=== PATIENT | female | born 1970 | race Caucasian/White ===

== ENCOUNTER 2017-01-05 07:51 | Emergency (ER) | payer OTHER ==
[~2017-01-05] VITALS: Ht 165.1 cm; Wt 136.3 kg
[~2017-01-05 07:51] MED LIST: FENO160T PO; FLUO20CA35 PO; FURO40TA3 PO; GLC/500 PO; GLIP-199 PO; LISI-791 PO; MOME200A INH; POTA-331 PO; SIMV40TA4 PO
[2017-01-05 07:55] VITALS: TEMP 36.8; Ht 165.1 cm; Wt 136.3 kg
[2017-01-05 08:50] LABS: BASO % 0.1 %; BASO ABS # 0.01 K/uL (0-0.2); COMPLETE YES; EOS % 0.8 %; HEMATOCRIT 45.9 % (37-47); IG% 0.4 %; LYMPH % 14.5 %; LYMPH ABS # 1.61 K/uL (1.2-3.4); MEAN CELL VOLUME 83.8 fL (80-100); MEAN CORPUSCULAR HEMOGLOBIN 27.2 pg (25-34); MEAN CORPUSCULAR HGB CONC 32.5 g/dl (32-36); MEAN PLATELET VOLUME 9.6 fL (7.4-10.4); MONO % 6.2 %; PLATELET COUNT 293 K/uL (130-400); RED BLOOD COUNT 5.48 M/uL (4.2-5.4); WHITE BLOOD COUNT 11.07 K/uL (4.8-10.8)
[2017-01-05 08:55] LABS: URINE APPEARANCE CLOUDY (CLEAR); URINE BILIRUBIN NEG (NEG); URINE COLOR YELLOW; URINE EPITHELIAL CELL AUTO >30 /lpf (0-5); URINE NITRITE NEG (NEG); URINE PH 6.5 (4.5-7.5); UROBILINOGEN NEG (NEG); ZZUR CULT IF INDIC CLEAN CATCH YES
[2017-01-05 09:01] LABS: MANUAL MICROSCOPIC REQUIRED? NO; REVIEW REQ? YES
[2017-01-05 09:10] LABS: BUN/CREATININE RATIO 6.7 (10-20); CALCIUM 9.1 mg/dl (8.5-10.1); CREATININE 0.87 mg/dl (0.60-1.20); POTASSIUM 3.7 mmol/L (3.5-5.1)
--- NOTE | 2017-01-05 10:06 | DIAGNOSTIC IMAGING REPORT ---
CHEST 2 VIEWS ROUTINE CLINICAL HISTORY: 46 years-old Female presenting with peripheral edema. TECHNIQUE: PA and lateral views of the chest were obtained. COMPARISON: 02/07/2015. FINDINGS: Cardiomediastinal silhouette normal. Persistent mild peribronchial cuffing. Lungs and pleural spaces otherwise clear. Osseous structures and upper abdomen normal. IMPRESSION: 1. Persistent mild peribronchial cuffing, nonspecific and could be seen in the setting of bronchitis/bronchiolitis or reactive airways disease among other etiologies. No other evidence of acute cardiopulmonary disease. Electronically signed by: Sanchez Smyth M.D. 01/05/2017 10:05 AM Dictated Date/Time: 01/05/2017 10:04 AM
--- NOTE | 2017-01-05 10:20 | EMERGENCY ROOM VISIT NOTE ---
History First contact with patient: 08:19 Chief Complaint: HYPERGLYCEMIA Stated Complaint: HIGH SUGAR LEVELS Nursing Triage Summary: Patient reports she just moved back from [place] states that her glucometer was reading in the 500's at home states she has had a headache and not felt good so she decided to check her sugar at home. Patient reports her meter is older and she has recently just moved back from [place]. Patients BSG here is 116 with repeat of 120. Patient is currently not taking her medications History of Present Illness The patient is a 46 year old female who presents to the Emergency Room with complaints of hyperglycemia. The patient moved to the area and October of this year but only recently got her medical card and is now in search of a PCP. The patient is a known diabetic and states she has been off her medicine for several months. She moved here from [place]. She states she felt a little shaky this morning and therefore ate a few crackers which made her feel better she also took her blood sugar with her old glucometer and her blood sugar was over 500 which is why she came to the emergency room. In triage her blood sugar was only 112. The patient has no other complaints. She does admit to having chronic peripheral edema and COPD. She is a nonsmoker. The patient denies any chest pain or shortness of breath. The patient denies any abdominal pain, nausea or vomiting. The patient currently does not feel dizzy or shaky. Review of Systems 10 system review was performed and was negative unless stated otherwise history of present illness. Past Medical/Surgical History Medical Problems: (1) Bilateral tubal ligation (2) BLADDER TUMOR (3) CHR AIRWAY OBSTRUCT NEC (4) DIAB MILDRED WO COMPL, TYPE II OR UNSPEC TYPE, NOT UNCNTRLD (5) Dyslipidemia (6) EDEMA (7) LUMBAGO (8) OBESITY, NOS (9) SHORTNESS OF BREATH (10) TOBACCO USE DISORDER Family History No pertinent family history Social History Smoking Status: Current Every Day Smoker Alcohol Use: none Drug Use: none Marital Status: single Housing Status: other (this with her son) Occupation Status: unemployed Current/Historical Medications No Active Prescriptions or Reported Meds Physical Exam Vital Signs Date Time Temp Pulse Resp B/P (MAP) Pulse Ox O2 Delivery O2 Flow Rate FiO2 01/05/17 09:38 87 17 148/84 94 Room Air 01/05/17 07:55 36.8 92 20 153/106 96 Room Air Physical Exam GENERAL: 46-year-old obese white female appears in no acute distress. MENTAL Status: Alert and oriented 3. EYES: PERRLA. EOMs intact. NECK: Supple, no lymphadenopathy noted. No carotid bruits noted. LUNGS: Clear auscultation without wheezes rales or rhonchi. CARDIAC: Regular rate and rhythm without murmur. Pulses is full and equal throughout. ABDOMEN: Positive bowel sounds all 4 quadrants. Soft, nontender to palpation without organomegaly or masses. NEURO:Cranial nerves two through 12 intact. Cerebellar function intact with [id number]. Fine motor intact with alternating finger motions. LOWER EXTREMITIES: Patient has generalized swelling of both lower extremities. She has 1+ pitting edema bilaterally. No erythema noted. There is some dry scaling noted consistent with stasis dermatitis. Medical Decision & Procedures ER Provider Diagnostic Interpretation: CHEST 2 VIEWS ROUTINE CLINICAL HISTORY: 46 years-old Female presenting with peripheral edema. TECHNIQUE: PA and lateral views of the chest were obtained. COMPARISON: 02/07/2015. FINDINGS: Cardiomediastinal silhouette normal. Persistent mild peribronchial cuffing. Lungs and pleural spaces otherwise clear. Osseous structures and upper abdomen normal. IMPRESSION: 1. Persistent mild peribronchial cuffing, nonspecific and could be seen in the setting of bronchitis/bronchiolitis or reactive airways disease among other etiologies. No other evidence of acute cardiopulmonary disease. Electronically signed by: Sanchez Smyth M.D. 01/05/2017 10:05 AM Dictated Date/Time: 01/05/2017 10:04 AM Laboratory Results 01/05/17 08:40 Red Blood Count 5.48, Mean Corpuscular Volume 83.8, Mean Corpuscular Hemoglobin 27.2, Mean Corpuscular Hemoglobin Concent 32.5, Mean Platelet Volume 9.6, Neutrophils (%) (Auto) 78.0, Lymphocytes (%) (Auto) 14.5, Monocytes (%) (Auto) 6.2, Eosinophils (%) (Auto) 0.8, Basophils (%) (Auto) 0.1, Neutrophils # (Auto) 8.63, Lymphocytes # (Auto) 1.61, Monocytes # (Auto) 0.69, Eosinophils # (Auto) 0.09, Basophils # (Auto) 0.01 01/05/17 08:40 Test 01/05/17 08:04 01/05/17 08:25 8/4/17 08:40 Bedside Glucose 120 mg/dl (70-90) Urine Color YELLOW Urine Appearance CLOUDY (CLEAR) Urine pH 6.5 (4.5-7.5) Urine Specific Ophiem 1.010 (1.000-1.030) Urine Protein NEG (NEG) Urine Glucose (UA) NEG (NEG) Urine Ketones NEG (NEG) Urine Occult Blood NEG (NEG) Urine Nitrite NEG (NEG) Urine Bilirubin NEG (NEG) Urine Urobilinogen NEG (NEG) Urine Leukocyte Esterase LARGE (NEG) Urine WBC (Auto) >30 /hpf (0-5) Urine RBC (Auto) 0-4 /hpf (0-4) Urine Hyaline Casts (Auto) 1-5 /lpf (0-5) Urine Epithelial Cells (Auto) >30 /lpf (0-5) Urine Bacteria (Auto) 1+ (NEG) White Blood Count 11.07 K/uL (4.8-10.8) Red Blood Count 5.48 M/uL (4.2-5.4) Hemoglobin 14.9 g/dL (12.0-16.0) Hematocrit 45.9 % (37-47) Mean Corpuscular Volume 83.8 fL (80-100) Mean Corpuscular Hemoglobin 27.2 pg (25-34) Mean Corpuscular Hemoglobin Concent 32.5 g/dl (32-36) Platelet Count 293 K/uL (130-400) Mean Platelet Volume 9.6 fL (7.4-10.4) Neutrophils (%) (Auto) 78.0 % Lymphocytes (%) (Auto) 14.5 % Monocytes (%) (Auto) 6.2 % Eosinophils (%) (Auto) 0.8 % Basophils (%) (Auto) 0.1 % Neutrophils # (Auto) 8.63 K/uL (1.4-6.5) Lymphocytes # (Auto) 1.61 K/uL (1.2-3.4) Monocytes # (Auto) 0.69 K/uL (0.11-0.59) Eosinophils # (Auto) 0.09 K/uL (0-0.5) Basophils # (Auto) 0.01 K/uL (0-0.2) RDW Standard Deviation 46.8 fL (36.4-46.3) RDW Coefficient of Variation 15.3 % (11.5-14.5) Immature Granulocyte % (Auto) 0.4 % Immature Granulocyte # (Auto) 0.04 K/uL (0.00-0.02) Anion Gap 6.0 mmol/L (3-11) Est Creatinine Clear Calc Drug Dose 110.8 ml/min Estimated GFR () 91.3 Estimated GFR (Non- 78.8 BUN/Creatinine Ratio 6.7 (10-20) Calcium Level 9.1 mg/dl (8.5-10.1) Total Bilirubin 0.4 mg/dl (0.2-1) Direct Bilirubin 0.1 mg/dl (0-0.2) Aspartate Amino Transf (AST/SGOT) 16 U/L (15-37) Alanine Aminotransferase (ALT/SGPT) 21 U/L (12-78) Alkaline Phosphatase 116 U/L (45-117) Total Protein 7.3 gm/dl (6.4-8.2) Albumin 3.0 gm/dl (3.4-5.0) Lipase 122 U/L (73-393) ED Course The patient was evaluated. The patient's EMR medication list were reviewed. IV access was obtained. CBC differential, renal profile, LFTs and lipase levels were ordered. Labs are reviewed. The patient's glucose was 115. Chest x-ray was ordered and interpreted by the radiologist and myself as above without any acute findings.. I spoke with the interior design instructor who is going to speak with the patient and give her a list of PCPs in her area. I stressed to the patient she needs to get established with a PCP as soon as possible. The patient was discharged home in stable condition. Medical Decision Differential diagnosis include hyperglycemia, hypoglycemia. This patient needs chronic care follow-up [place] Drug Monitoring Program Search Results: patient reviewed within database Medication Reconcilliation Current Medication List: was personally reviewed by me Blood Pressure Screening Patient's blood pressure: Elevated blood pressure Blood pressure disposition: Elevated BP felt to be situational Impression Primary Impression: Type 2 diabetes mellitus Departure Information Dispostion Home / Self-Care Condition GOOD Prescriptions No Active Prescriptions or Reported Meds Referrals No Doctor, Assigned (PCP) Forms HOME CARE DOCUMENTATION FORM, IMPORTANT VISIT INFORMATION, WORK / SCHOOL INSTRUCTIONS Patient Instructions My [facility] [id number] Additional Instructions Set up an appointment with a PCP as soon as possible for chronic care management. Recommend buying a new glucometer. Problem Qualifiers Primary Impression: Type 2 diabetes mellitus Diabetes mellitus complication status: without complication
[2017-01-05 10:30] VITALS: BP 139/86; PULSE 82; O2SAT 94
[2017-03-07] MEDS ORDERED: LPR25 PO (15:18)
[2017-03-07] MEDS ORDERED: ASPEC81 PO (15:18)
[2017-03-07] MEDS ORDERED: NTRSLP4 SL (15:18)
[2017-03-07] MEDS ORDERED: PLV75 PO (15:18)
== END 2017-01-05 10:30 | disposition home or self-care (01) ==
LOC: C.EDB 07:52 → C.EDA 10:30
DX: E11.9 Type 2 diabetes mellitus without complications (principal); J44.9 Chronic obstructive pulmonary disease, unspecified; E78.5 Hyperlipidemia, unspecified; R60.9 Edema, unspecified; E66.9 Obesity, unspecified; F17.200 Nicotine dependence, unspecified, uncomplicated

== ENCOUNTER 2017-03-06 12:08 | Inpatient (IN) | payer OTHER ==
[2017-03-06] VITALS (9 sets, daily range): BP systolic 126–168; BP diastolic 86–109; PULSE 86–103; O2SAT 95; Ht 165.1 cm; Wt 140.9 kg
[~2017-03-06] VITALS: Ht 165.1 cm; Wt 140.9 kg
[2017-03-06] MEDS ORDERED: ASPI81TA28 PO (12:36)
[2017-03-06] MEDS ORDERED: CHN/1 PO (12:38)
[2017-03-06 12:46] LABS: MEAN CELL VOLUME 82.7 fL (80-100); MEAN CORPUSCULAR HGB CONC 32.6 g/dl (32-36); MEAN PLATELET VOLUME 9.4 fL (7.4-10.4); PLATELET COUNT 254 K/uL (130-400); RED BLOOD COUNT 5.56 M/uL (4.2-5.4); WHITE BLOOD COUNT 9.84 K/uL (4.8-10.8)
--- NOTE | 2017-03-06 12:49 | EMERGENCY ROOM VISIT NOTE ---
History Report prepared by Fatimah: Concepcion De La Cruz Under the Supervision of: Dr. Kvng Escalera M.D. First contact with patient: 12:30 Chief Complaint: CARDIAC ASSESSMENT Stated Complaint: + stress test Nursing Triage Summary: Pt was at [facility] for stress test for SOB. ALS reports that [facility] could already see that patient had had an IL in past. They also report patient was not on trreadmill long anf had increased ischemia, denied CP at that time. At peak exercise, Pt had run of Vtach followed by SVT for 2-3 sec. Was given 324 ASA. History of COPD. History of Present Illness The patient is a 46 year old female who presents to the Emergency Room with complaints of an abnormal stress test that was done prior to arrival. Per Dr. Verdugo, the patient was referred to his office for a stress-echocardiogram due to angina. He states that today the patient was found to have findings consistent with inducible ischemia. Dr. Verdugo notes that he gave the patient 324 of aspirin and spoke to Dr. Garrido of Cardiology to send the patient over to the hospital for further evaluation. The patient reports shortness of breath with light amounts of activity. She denies any chest pain. The patient denies any history of a previous IL, PE, or DVT. Source of History: patient Onset: prior to arrival Position: other (global) Quality: other (abnormal stress test) Associated Symptoms: + SOB, No chest pain Review of Systems See HPI for pertinent positives & negatives. A total of 10 systems reviewed and were otherwise negative. Past Medical & Surgical Medical Problems: (1) Bilateral tubal ligation (2) BLADDER TUMOR (3) CHR AIRWAY OBSTRUCT NEC (4) DIAB MILDRED WO COMPL, TYPE II OR UNSPEC TYPE, NOT UNCNTRLD (5) Dyslipidemia (6) EDEMA (7) LUMBAGO (8) OBESITY, NOS (9) SHORTNESS OF BREATH (10) TOBACCO USE DISORDER (11) Unstable angina Family History No pertinent family history Social History Smoking Status: Current Every Day Smoker Alcohol Use: none Drug Use: none Marital Status: single Housing Status: other Occupation Status: unemployed Current/Historical Medications Scheduled Varenicline (Chantix), 1 MG PO DIRECTED Allergies Coded Allergies: No Known Allergies (Verified , 03/06/17) Physical Exam Vital Signs Date Time Temp Pulse Resp B/P (MAP) Pulse Ox O2 Delivery O2 Flow Rate FiO2 03/06/17 13:38 86 22 97 03/06/17 13:09 95 Room Air 03/06/17 13:08 86 26 99 03/06/17 13:04 88 22 127/95 95 Room Air 03/06/17 13:04 127/95 03/06/17 12:38 86 30 03/06/17 12:25 90 03/06/17 12:16 36.9 87 18 145/94 95 Room Air 03/06/17 12:16 95 Room Air Physical Exam GENERAL: Patient is in no acute distress. HEENT: No acute trauma, normocephalic atraumatic, mucous membranes moist, no nasal congestion, no scleral icterus. NECK: No stridor, no adenopathy, no meningismus, trachea is midline. LUNGS: Clear to auscultation bilaterally, no wheeze, no rhonchi, breath sounds equal. HEART: Without murmurs gallops or rubs, regular rate and rhythm. ABDOMEN: Soft, nontender, bowel sounds positive, no hernias, no peritonitis. EXTREMITIES: Significant bilateral pedal edema with chronic skin change, worse on left, no active cellulitis. NEUROLOGIC: Oriented x 3, no acute motor or sensory deficits, no focal weakness. SKIN: No rash, no jaundice, no diaphoresis. Medical Decision & Procedures ER Provider Diagnostic Interpretation: X-ray results as stated below per interpretation by me and the radiologist: CHEST ONE VIEW PORTABLE CLINICAL HISTORY: 46 years-old Female presenting with CHEST PAIN. TECHNIQUE: Portable upright AP view of the chest was obtained. COMPARISON: 01/05/2017. FINDINGS: Image quality is degraded due to underpenetration. Cardiac silhouette remains enlarged. Persistent peribronchial cuffing noted. Lungs and pleural spaces clear. Osseous structures normal. Upper abdomen normal. IMPRESSION: 1. Persistent bronchial wall thickening, which could be seen in the setting of bronchitis or reactive airways disease as well as a consequence of congestion/volume overload. No new focal infiltrate allowing for underpenetration. 2. Mild cardiomegaly. Electronically signed by: Sanchez Smyth M.D. 03/06/2017 1:05 PM Dictated Date/Time: 03/06/2017 1:03 PM Laboratory Results 03/06/17 12:29 03/06/17 12:29 Test 03/06/17 12:29 Red Blood Count 5.56 M/uL (4.2-5.4) Mean Corpuscular Volume 82.7 fL (80-100) Mean Corpuscular Hemoglobin 27.0 pg (25-34) Mean Corpuscular Hemoglobin Concent 32.6 g/dl (32-36) RDW Standard Deviation 52.3 fL (36.4-46.3) RDW Coefficient of Variation 17.5 % (11.5-14.5) Mean Platelet Volume 9.4 fL (7.4-10.4) Anion Gap 9.0 mmol/L (3-11) Est Creatinine Clear Calc Drug Dose 127.7 ml/min Estimated GFR () 105.8 Estimated GFR (Non- 91.3 BUN/Creatinine Ratio 9.5 (10-20) Calcium Level 9.0 mg/dl (8.5-10.1) Total Bilirubin 0.3 mg/dl (0.2-1) Aspartate Amino Transf (AST/SGOT) 13 U/L (15-37) Alanine Aminotransferase (ALT/SGPT) 18 U/L (12-78) Alkaline Phosphatase 127 U/L (45-117) Total Creatine Kinase 42 U/L (26-192) Creatine Kinase MB 0.7 ng/ml (0.5-3.6) Creatine Kinase MB Ratio 1.7 (0-3.0) Troponin I < 0.015 ng/ml (0-0.045) Total Protein 7.5 gm/dl (6.4-8.2) Albumin 2.9 gm/dl (3.4-5.0) Globulin 4.6 gm/dl (2.5-4.0) Albumin/Globulin Ratio 0.6 (0.9-2) Laboratory results reviewed by me. ECG Indication: SOB/dyspnea Rate (beats per minute): 82 Rhythm: normal sinus Findings: no acute ischemic change, no ectopy, other (old septal infarct) ED Course 1232: The patient was evaluated in room A2. A complete history and physical exam was performed. I discussed the treatment plan with her and she verbalized complete understanding and agreement. The patient will be evaluated for further treatment. 1237: I discussed the patients case with Kamaljit Sierra. He will evaluate the patient for further treatment. Medical Decision The patient is a 46 year old female who presents to the ED with complaints of an abnormal stress test. Differential diagnoses considered include Angina, IL, anemia, electrolyte imbalance, renal failure, heart failure. There is no leukocytosis or concerning anemia. No significant electrolyte abnormality, kidney failure or hepatitis. EKG shows a normal sinus rhythm with an old septal infarct, no acute ischemia. Cardiac enzyme testing 1 is not consistent with acute cardiac injury. The patient had received oral aspirin prior to arrival. She did poorly on a stress test earlier today. She presents with findings consistent with inducible cardiac ischemia, admission/observation is warranted. I spoke to the patient and case management. The on-call hospitalist was consulted. Medication Reconcilliation Current Medication List: was personally reviewed by me Consults Time Called: 1237 Consulting Physician: Jhonny Sierra Returned Call: 1237 I discussed the patients case with Kamaljit Sierra. He will evaluate the patient for further treatment. Impression Primary Impression: Precordial chest pain Additional Impression: Angina of effort Scribe Attestation The scribe's documentation has been prepared under my direction and personally reviewed by me in its entirety. I confirm that the note above accurately reflects all work, treatment, procedures, and medical decision making performed by me. Departure Information Dispostion Being Evaluated By Hospitalist Referrals No Doctor, Assigned (PCP) Patient Instructions My [facility] Problem Qualifiers
[2017-03-06] MEDS ORDERED: ACETAMINOPHEN 325 MG TAB PO PRN ×2 (13:00→18:15)
[2017-03-06] MEDS ORDERED: ONDANSETRON INJ 2 MG/ML 2 ML VIAL IV PRN ×2 (13:00→18:15)
[2017-03-06] MEDS ORDERED: NITROGLYCERIN 0.4 MG SL PER TAB CHARGE SL PRN ×2 (13:00→18:15)
--- NOTE | 2017-03-06 13:00 | History and Physical ---
History & Physical Date & Time of Service: Mar 06, 2017 at 13:00 . Chief Complaint: shortness of breath, abnormal stress test . Primary Care Physician: No Doctor, Assigned History of Present Illness Source: patient, clinic records, hospital records 46 YO female followed by Dr. Smyth for Family Medicine. History of suspected ischemic heart disease. She had an abnormal nuclear stress study performed in [place] last year. Cardiac catheterization was recommended, but she declined because she did not have insurance coverage at that time. Also has history of hypertension, diet-controlled DM type 2, dyslipidemia, and other problems noted below. Experiencing chest tightness and dyspnea on exertion for some time. Sometimes experiences paresthesiae of left arm and nausea associated with the chest tightness. Symptoms relieved by rest. Recently only able to ambulate for about 5 minutes before developing symptoms. Referred for treadmill stress echo with Dr. Verdugo. Baseline EKG demonstrated septal Q-waves V1-3. Resting echo demonstrated wall motion abnormalities anteroseptally and apically , consistent with ischemic heart disease. Study was stopped during Edward stage I due to fatigue and dyspnea. 3-beat run of ventricular tachycardia and ST depression noted. Post stress echo demonstrated expansion of previously noted anteroseptal and apical hypokinesis as well as new hypokinesis of the anterior and lateral montes. Had runs of SVT during recovery. Symptoms resolved with rest. ASA 324 mg administered in clinic. Patient referred to ED for further evaluation and management. Pain-free and breathing comfortably at time of my assessment. Pt's risk factors for ischemic heart disease: dyslipidemia, hypertension, smoking . Past Medical/Surgical History Chronic and Resolved Medical Problems: (1) CHR AIRWAY OBSTRUCT NEC Status: Chronic (2) DIAB MILDRED WO COMPL, TYPE II OR UNSPEC TYPE, NOT UNCNTRLD Status: Chronic (3) Dyslipidemia Status: Chronic (4) EDEMA Status: Chronic (5) History of bladder cancer Status: Chronic (6) Hypertension Status: Chronic (7) LUMBAGO Status: Chronic (8) OBESITY, NOS Status: Chronic (9) TOBACCO USE DISORDER Status: Chronic Surgical Problems: (1) Status post tubal ligation Status: Chronic (1) Status post cystoscopy / resection bladder tumor Status: Chronic . Family History Diabetes mellitus GRANDMOTHER Social History Smoking Status: Current Every Day Smoker Alcohol Use: none Drug Use: none Marital Status: single Housing status: lives with family Occupational Status: unemployed Immunizations History of Influenza Vaccine: N/A History of Tetanus Vaccine?: Yes Tetanus Immunization Date: Nov 29, 2012 History of Pneumococcal: No History of Hepatitis B Vaccine: Yes Multi-Drug Resistant Organisms History of MDRO: No Allergies Coded Allergies: No Known Allergies (Verified , 03/06/17) Home Medications Scheduled Atorvastatin (Atorvastatin Calcium), 40 MG PO DAILY Furosemide (Furosemide), 20 MG PO DAILY Varenicline (Chantix), 1 MG PO DIRECTED Scheduled PRN Albuterol Hfa (Ventolin Hfa), 2 PUFFS INH Q4H PRN for Wheezing Review of Systems Constitutional: No fever, No weight loss Eyes: No worsening of vision, No diplopia ENT: No nasal symptoms, No sore throat Respiratory: + cough (occasional), + dyspnea on exertion Cardiovascular: + edema, + problem reported (as noted in HPI) Abdomen: No pain, No nausea, No vomiting, No diarrhea, No GI bleeding Musculoskeletal: + joint pain Neurologic: + problem reported (intermittent headaches) Endocrine: No excessive thirst, No excessive urination Hematologic / Lymphatic: + abnormal bleeding/bruising, No swollen lymph nodes Integumentary: + rash (chronic rash lower extremities) Physical Exam Vital Signs Date Time Temp Pulse Resp B/P (MAP) Pulse Ox O2 Delivery O2 Flow Rate FiO2 03/06/17 12:25 90 03/06/17 12:16 36.9 87 18 145/94 95 Room Air 03/06/17 12:16 95 Room Air General Appearance: WD/WN, no apparent distress Head: normocephalic, atraumatic Eyes: normal inspection, PERRL, EOMI, sclerae normal (conjunctivae pink) ENT: hearing grossly normal, pharynx normal, + pertinent finding (upper dentures; lower dentition poor) Neck: supple, no adenopathy, thyroid normal, no JVD, trachea midline Respiratory/Chest: lungs clear, no respiratory distress, no accessory muscle use Cardiovascular: regular rate, rhythm, no JVD, no murmur, normal peripheral pulses, + gallop/S4, + pertinent finding (3+ pretibial and pedal edema) Abdomen/GI: normal bowel sounds, non tender, soft, no organomegaly (exam limited due to body habitus), no pulsatile mass Extremities/Musculoskelatal: no calf tenderness, normal capillary refill Neurologic/Psych: web content director II-XII nml as tested (PERRL, EOMI, no facial palsy, no dysarthira), no motor/sensory deficits (grossly intact), alert, normal mood/ affect, normal reflexes (patellar reflexes 1/2 bilat, plantar reflexes downgoing bilat), oriented x 3 Skin: warm/dry, + pertinent finding (chronic venous stasis changes lower extremities) Lymphatic: no adenopathy (cervical) Diagnostics Laboratory Results Results Past 24 Hours Test 03/06/17 12:29 03/06/17 12:35 Range/Units White Blood Count 9.84 4.8-10.8 K/uL Red Blood Count 5.56 4.2-5.4 M/uL Hemoglobin 15.0 12.0-16.0 g/dL Hematocrit 46.0 37-47 % Mean Corpuscular Volume 82.7 80-100 fL Mean Corpuscular Hemoglobin 27.0 25-34 pg Mean Corpuscular Hemoglobin Concent 32.6 32-36 g/dl RDW Standard Deviation 52.3 36.4-46.3 fL RDW Coefficient of Variation 17.5 11.5-14.5 % Platelet Count 254 130-400 K/uL Mean Platelet Volume 9.4 7.4-10.4 fL Creatine Kinase MB Ratio 0-3.0 Diagnostic Radiology CHEST ONE VIEW PORTABLE FINDINGS: Image quality is degraded due to underpenetration. Cardiac silhouette remains enlarged. Persistent peribronchial cuffing noted. Lungs and pleural spaces clear. Osseous structures normal. Upper abdomen normal. IMPRESSION: 1. Persistent bronchial wall thickening, which could be seen in the setting of bronchitis or reactive airways disease as well as a consequence of congestion/volume overload. No new focal infiltrate allowing for underpenetration. 2. Mild cardiomegaly. Electronically signed by: Sanchez Smyth M.D. 03/06/2017 1:05 PM . EKG EKG performed at 12:13 reviewed and demonstrated NSR at 82 / minute, possible age-indeterminate septal infarct, minimal ST depression (0.5 mm) leads I, aVF. . Impression Assessment and Plan UNSTABLE ANGINA / ABNORMAL STRESS TEST Multiple risk factors for ischemic heart disease. Progressive chest discomfort and dyspnea on exertion. Treadmill stress echo showed wall motion abnormalities at rest and worsening with exertion as summarized in HPI. Received aspirin in clinic. Cardiology consulted. Cardiac cath is be planned for later today. Further management per Cardiology. HYPERTENSION Cardiovascular meds to be determined after cardiac cath performed. DM TYPE 2 Treated with metformin in the past, now diet-controlled. Random glucose in ED 84. Check Hgb A1C. Follow. DYSLIPIDEMIA Check lipid profile. Continue atorvastatin. HISTORY CROHN'S DISEASE Quiescent. SMOKING Smoking cessation counseling. Hold Chantix and nicotine products due to unstable angina. VTE PROPHYLAXIS To be determined after cardiac cath. RESUSCITATION STATUS Full code. DISPOSITION Admit to Telemetry Unit. Expected discharge to home. Family Medicine follow-up with Dr. Smyth. Cardiology follow-up with [facility]. VTE Prophylaxis VTE Risk Assessment Done? Y/N: Yes Risk Level: Moderate Additional Copies To Ruel Smyth M.D.
--- NOTE | 2017-03-06 13:06 | DIAGNOSTIC IMAGING REPORT ---
CHEST ONE VIEW PORTABLE CLINICAL HISTORY: 46 years-old Female presenting with CHEST PAIN. TECHNIQUE: Portable upright AP view of the chest was obtained. COMPARISON: 01/05/2017. FINDINGS: Image quality is degraded due to underpenetration. Cardiac silhouette remains enlarged. Persistent peribronchial cuffing noted. Lungs and pleural spaces clear. Osseous structures normal. Upper abdomen normal. IMPRESSION: 1. Persistent bronchial wall thickening, which could be seen in the setting of bronchitis or reactive airways disease as well as a consequence of congestion/volume overload. No new focal infiltrate allowing for underpenetration. 2. Mild cardiomegaly. Electronically signed by: Sanchez Smyth M.D. 03/06/2017 1:05 PM Dictated Date/Time: 03/06/2017 1:03 PM
[2017-03-06 13:11] LABS: ALT/SGPT 18 U/L (12-78); BLOOD UREA NITROGEN 7 mg/dl (7-18); BUN/CREATININE RATIO 9.5 (10-20); CARBON DIOXIDE 27 mmol/L (21-32); CHLORIDE 103 mmol/L (98-107); CREATININE 0.77 mg/dl (0.60-1.20); GLUCOSE 84 mg/dl (70-99); POTASSIUM 3.9 mmol/L (3.5-5.1); SODIUM 139 mmol/L (136-145)
[2017-03-06 13:16] LABS: ALB/GLOB RATIO 0.6 (0.9-2); ALKALINE PHOSPHATASE 127 U/L (45-117); AST/SGOT 13 U/L (15-37); CKMB/CK RATIO 1.7 (0-3.0)
[2017-03-06] MEDS: SODIUM CHLORIDE 0.9% 1000ML 1,000 ML IV SCH ×2 (13:41→20:47)
[2017-03-06] MEDS ORDERED: MIDAZOLAM HCL 1 MG/ML 2ML VIAL ONE ×2 (14:06→16:19)
[2017-03-06] MEDS ORDERED: NiCARDipine HCL INJ 2.5 MG/ML 10 ML AMP ONE (14:06)
[2017-03-06] MEDS ORDERED: HEPARIN SOD (PORCINE) 1000 UNIT/ML 10 ML VIAL ONE ×3 (14:06→17:27)
[2017-03-06] MEDS ORDERED: FENTANYL CITRATE INJ 50 MCG/1 ML 2 ML VIAL ONE (14:06)
[2017-03-06] MEDS ORDERED: NITROGLYCERIN/D5W 100MCG/ML 20ML SYR ONE (14:07)
[2017-03-06] MEDS ORDERED: VNTHFA/IN INH (14:16)
[2017-03-06] MEDS ORDERED: LSX20 PO (14:16)
[2017-03-06] MEDS ORDERED: LPT40 PO (14:17)
[2017-03-06] MEDS ORDERED: METOPROLOL TARTRATE 1 MG/ML VIAL ONE (15:12)
--- NOTE | 2017-03-06 16:07 | [facility] Post Operative Brief Note ---
Preliminary Procedure Note Procedure Date Mar 06, 2017. Pre-Procedure Diagnosis Angina, Positive Stress Test AUC Score 8 Post-Procedure Diagnosis Severe CAD Procedure(s) Performed Coronary Angiography, LV Angiography Black Topper Dr. Aniceto Garrido Clinical Academic Allergist(s) Sina Moore Estimated Blood Loss <15 cc Medication(s) Fentanyl (12.5 mcg IV), Heparin (5000u IV), Nitroglycerin (0.4 mg SL), Versed ( 1 mg IV), Lidocaine 1% (local infiltration) Metoprolol 2.5 mg IV Preliminary Findings Codominant coronary anatomy Subtotal long 99% proximal LAD with thin FAM II flow to long diagonal, type II LAD collateral fill of distal vessel from RCA and CX LCx Very large, small M1, large OM2 [address] , codominant PDA Mild irregularities diffusely RCA moderate sized codominant with early PDA supply. 50-60% mid vessel LV hypokinesis of the apex, EF 45% EDP 25-30 Recommendations PCI without planned CABG Specimens None Fluids (cc crystalloids) 80 Anesthesia Start 1454 End 1526 Monitor Nicholas Hernandez RN Procedural Complication(s) None
--- NOTE | 2017-03-06 16:28 | CARDIOLOGY CONSULTATION ---
DATE OF CONSULTATION: 03/06/2017 REFERRING PHYSICIAN: Dr. Akhtar. INDICATIONS: Chest pain, abnormal stress test. HISTORY OF PRESENT ILLNESS: The patient is a 46-year-old female whose history is notable for obesity, suspected obstructive sleep apnea, hyperlipidemia, past history of angina pectoris diagnosed greater than a year ago, at the time previously residing in [place]. The patient notes having undergone a stress nuclear imaging standing at that time and was suggested to undergo diagnostic cardiac catheterization. Most recently she has been seen on returned to [place] to her home with symptoms of exertional dyspnea with only minimal exertion. She was referred and underwent stress echocardiography today with study dramatically abnormal at less than 3 minutes on a standard Edward protocol. The patient stopping secondary to severe dyspnea with notable marked LV dysfunction post stress. There was a rapid heart rate and blood pressure response to exercise. She is referred to the ER and now subsequent for further evaluation. She is currently asymptomatic and notes no sustained chest pain, is dyspneic with only minimal exertion. Carries a history of chronic stasis edema which the patient feels has not changed abruptly, was treated for cellulitis earlier this past year but notes no recent infectious problems. Notes no fevers, chills or cough. Notes no melena, hematochezia, dysuria or hematuria. Notes no rash or arthritic complaint. Denies any history of rheumatic fever, scarlet fever, renal or hepatic disease. Has received IV contrast for studies in the past without complication. REVIEW OF SYSTEMS: Otherwise negative. ALLERGIES: Noted to be none. MEDICATIONS: Prior to hospitalization were aspirin 324 mg given today, Chantix which recently started then held, albuterol inhaler, furosemide 20 mg as needed for peripheral edema in addition to 20 mg daily, atorvastatin 40 mg p.o. daily as a recent start. PAST SURGICAL HISTORY: Notable for prior tubal ligation. FAMILY HISTORY: Not specifically notable for cardiac disease per patient. SOCIAL HISTORY: The patient resides in [place]. She is a 1/2-1 pack per day smoker, uses no significant [id number] medications. PHYSICAL EXAMINATION: VITAL SIGNS: Heart rate is 80, blood pressure is 127/95, O2 saturation 95% on room air. HEAD, EYES, EARS, NOSE, AND THROAT: Normocephalic, atraumatic. Nares without discharge. Throat is notable for upper edentulous palate with denture plate in place. NECK: Thick. There is no distinct jugular venous distention. LUNGS: Reveal mildly diminished breath sounds, but are predominantly clear. CARDIOVASCULAR EXAMINATION: Regular with normal S1, S2. There is no murmur, gallop or rub. PMI is nondisplaced. ABDOMEN: Soft, obese, large panniculus. EXTREMITIES: Without cyanosis or clubbing. There is marked stasis changes of both lower extremities with intact distal pulses at 3/4. NEUROLOGIC: The patient alert, answering questions appropriately. DATA: Stress echocardiography as per HPI. The patient exercised on a Edward protocol for less than 3 minutes before stopping secondary to marked dyspnea. There is a dramatic heart rate response to exercise, achieving heart rate greater of 140 at that level workload. Blood pressure response was hypertensive. Resting echocardiography reflected apical and septal wall motion abnormalities with hypokinesis to akinesis of the second as stress wall segments failed to improve with only sparing of the basilar inferior wall. LABORATORY DATA: Lipid study 02/16/2017 reveal a cholesterol of 258, HDL 34, LDL 187. Laboratory studies performed today demonstrates a white cell count of 9.8, hemoglobin is 15.0, hematocrit 46.0. Sodium is 139, potassium 3.9, chloride is 103, bicarb 27, BUN 7, creatinine 0.8. Initial troponin is less than 0.015. Albumin level is 2.9. Chest x-ray reveals no infiltrate or edema. EKG reveals sinus rhythm with septal Q-waves. 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 The patient is currently pain free and without complaint. Initial cardiac enzymes are negative. There are no acute ST segment changes on EKG with old septal Q-waves. RECOMMENDATIONS: Discussed findings in detail. I agree with plans for diagnostic cardiac catheterization. Patient has been n.p.o. since midnight last night. There are no contraindications to proceeding today, will anticipate proceeding directly to laborer tin can this afternoon with further recommendations pending results of the study. The patient has no contraindications to dye administration or drug-eluting stent at this time. Procedure and risks are distinctly discussed in detail including risks of , myocardial infarction, stroke, bleeding, infection, dye reaction, renal vascular embolic injury, additional risks of coronary intervention including coronary stenting including increased risk of myocardial infarction, urgent bypass surgery also discussed. Consent obtained.
[2017-03-06] MEDS ORDERED: CLOPIDOGREL BISULFATE 300 MG TAB PO ONE (17:50)
--- NOTE | 2017-03-06 18:04 | Procedure Note ---
Post-Mod Sedation Assessment General Date of Moderate Sedation Mar 06, 2017. Vital Signs: Vital Signs Past 12 Hours Date Time Temp Pulse Resp B/P (MAP) Pulse Ox O2 Delivery O2 Flow Rate FiO2 03/06/17 17:59 85 18 136/101 (113) 95 Mask 03/06/17 17:54 85 18 143/96 (112) 94 Mask 03/06/17 17:49 86 16 156/100 (118) 95 Mask 4 03/06/17 13:38 86 22 97 03/06/17 13:09 95 Room Air 03/06/17 13:08 86 26 99 03/06/17 13:04 88 22 127/95 95 Room Air 03/06/17 13:04 127/95 03/06/17 12:38 86 30 03/06/17 12:25 90 03/06/17 12:16 36.9 87 18 145/94 95 Room Air 03/06/17 12:16 95 Room Air Review - Discharge Criteria Vital Signs Stable: Yes Alert/Oriented/Conversant: Yes Returned to Baseline Mental St: Yes Nausea Absent/Minimal: Yes Pain/Discomfort/Absent/Minimal: Yes Normal/Baseline Respirations: Yes Active Bleeding?: No Pt Received D/C Instructions: N/A Prescriptions Given: None Specific Proced. D/C Criteria Distal Pulses Present (Cardiac: Yes Groin site assessed-Card Cath: N/A Voided Prior To Discharge: N/A Discharged Patients Adult Escort/Transportation: Yes
[2017-03-06] MEDS ORDERED: ALBUTEROL HFA 8 GM INHALER INH PRN (18:15)
--- NOTE | 2017-03-06 18:35 | Cardiac Catheterization ---
Procedure Note Procedure Date Mar 06, 2017. Pre-Procedure Diagnosis Positive Stress Test, CAD AUC Score 8 Post-Procedure Diagnosis Severe CAD Procedure(s) Performed Drug Eluting Stent, IVUS Plumbing Manager Issa Retail Service Technician(s) Oscar Estimated Blood Loss 20 Medication(s) Fentanyl, Heparin, Nicardipine, Nitroglycerin, Versed, Lidocaine 1% Metoprolol 2.5 mg IV Summary of Findings Indication: High risk positive stress test Access: 6Fr Right radial artery Catheters: EBU 3.5 guide; switched to JL3.5 guide Findings: For full details of patient's coronary angiography please see cath report dictated by Dr. Garrido. Briefly, patient found to have subtotally occluded ostial LAD. Distal vessel fills vial left to left and right to left collaterals. -- PCI -- Antithrombotic therapy: Heparin, Clopidogrel Procedure: LM cannulated with JL3.5 (unable to seat EBU3.5 due to short asc aorta) Record Maker 50 wire passed across occlusion in to distal LAD Whisper wire placed into circumflex LAD lesion gently dilated with 2.0 and 2.5 balloon. With some difficulty whisper wire eventually placed into 1st diagonal LAD lesion more aggressively dilated with 2.5 balloon. Ostium of 1st diagonal dilated with 2.0 balloon IVUS of LAD revealed severe proximal, mildly calcified plaque. IVUS used for stent sizing. IVUS of 1st diagonal showed severe ostial disease 2.5 x 23 Xience MICAH placed at ostium of 1st diagonal 2.75 x 28 Xience MICAH placed from ostium of LAD across diagonal into mid segment. 1st diagonal whisper wire removed and re-wired through stent struts Stent struts, 1st diagonal ostium dilated with 2.5 compliant balloon LAD stent post-dilated with 3.0 NC balloon. IC vasodilators administered for spasm Post procedure FAM 3 flow, stents well expanded with minimal residual stenosis and no apparent cardiac complications. Arterial Closure: TR Band Summary: 1. Successful PCI of subtotally occluded ostial LAD and bifurcation of 1st diagonal with 2 drug-eluting stents (LAD 2.75 x 28, 1st Diagonal 2.5 x 23 Xience ) Recommendations: To PCU for continued monitoring Loaded with Clopidogrel 600 mg in lab analyst Continue dual-antiplatelet therapy for 1 year, possibly indefinitely. Elevated LVEDP (33) -- will give 40 IV lasix x 1 tonight High intensity statin, beta-juan and ASCVD risk factor modification per Dr. Garrido Consult cardiac Rehab Hemodynamics Rest Ao: 145/94/117 Final Ao: 137/79/105 LV: 139/33 Recommendations PCI without planned CABG Specimens None Radiation Exposure (mGy) 70097 (patient counseled on signs and symptoms of radiation injury) Contrast (mls) 249 Fluids (cc crystalloids) 466 Drains None Anesthesia Moderate Procedural Complication(s) None Disposition PCU ACC Data Cardiac Status Clinical evaluation leading to the procedure CAD Presntation: Positive Stress Test Diagnostic Physician's Name: Aniceto Garrido M.D. Status: Urgent Closure Device Percutaneous Entry Location: Radial Closure Device: Radial Band Recommendations: PCI without planned CABG Lesion Segment Name: Ostial LAD Culprit Artery: Yes Stenosis Prior to Rx (%): 99 Chronic Total Occlusion: Yes IVUS: No FFR: No Pre-Procedure FAM Flow: 1 Previously Treated Lesion: No Lesion Complexity: High/C Lesion Length (mm): 25 Thrombus Present: No Bifurcation Lesion: Yes Guidewire Across Lesion: Yes Guidewire: Stenosis Post-Procedure (%): 0 Post-Procedure FAM Flow: 3 Device(s) Deployed: Yes Intraprocedure Events Significant Dissection: No Perforation: No
[2017-03-06 19:30] LABS: PARTIAL THROMBOPLASTIN RATIO 4.5; PROTHROMBIN TIME (PATIENT) 10.7 SECONDS (9.0-12.0)
[2017-03-06] MEDS ORDERED: FUROSEMIDE INJ 40 MG in SYRINGE 0 ML IV ONE (19:30)
[2017-03-06] MEDS: METOPROLOL TARTRATE 25 MG TAB PO SCH (21:36)
--- NOTE | 2017-03-06 23:13 | CARDIAC CATH REPORT ---
PROCEDURE: Left heart catheterization, coronary and LV angiography. INDICATIONS: Markedly positive stress testing, chronic angina pectoris. HISTORY OF PRESENT ILLNESS: The patient is a 46-year-old female with cardiac risk factors of hypertension, hyperlipidemia, a past history of abnormal stress testing, approximately 1 year prior, of chronic angina. The patient most recently has been experiencing symptoms of class 3-4 exertional dyspnea and was referred for stress echocardiography today. Studies demonstrated resting hypokinesis in the anterior apex with markedly abnormal EKG, blood pressure, heart rate and echocardiographic response to stress testing at less than 3 minutes, the patient experiencing marked dyspnea, extensive wall motion abnormalities in the anterolateral apex. Symptoms resolved without intervention. Given the dramatically abnormal stress testing and exertional symptoms consistent with angina, she is referred for diagnostic cardiac catheterization. ACCESS: Right radial artery. CATHETERS: A 6-Bahraini long glide sheath, a 5-Bahraini brachial 3.5, a 5-Bahraini straight pigtail catheter. CONTRAST: Nonionic x114 mL Visipaque. IV SALINE: 80 mL normal saline. SEDATION: Start time was 1454, end time 1526. Monitor person Sruthi Hernandez RN. MEDICATIONS: Versed 1 mg IV, fentanyl 12.5 mcg IV. CARDIAC MEDICATIONS: Local infiltration of access site was performed using 1% lidocaine. After arterial sheath was inserted, patient received intra-arterial injection of 300 mcg of nicardipine. After central access was obtained, the patient received 5000 units IV heparin. During the case, 2.5 mg IV metoprolol was given for heart rate and blood pressure control. Following LV angiography, additional nitroglycerin 0.4 mg sublingually was given to reduce LV end-diastolic pressures. COMPLICATIONS: None. RESULTS: CORONARY ANGIOGRAPHY: LEFT MAIN: The left main is long and bifurcates to give rise to left anterior descending and left circumflex. There are minimal irregularities in the left main without obstruction. LEFT ANTERIOR DESCENDING: Left anterior descending is type 2 in distribution, gives rise to a long bifurcating diagonal shortly after its origin and a small third diagonal branch almost immediately beyond. The LAD was noted to have a subtotal 99% ostial stenosis at the distal vessel, being thin and thready in appearance with class 2 flow and collateral filling the distal vessel from the distal right coronary artery and the left circumflex. LEFT CIRCUMFLEX: The left circumflex is very large and nearly co-dominant in distribution. It gives rise to a small first marginal, a large obtuse marginal, two posterolateral branches and a posterior descending artery with the posterior descending artery having some co-distribution from the distal right coronary artery. Within the left circumflex, there are mild luminal irregularities throughout a very large caliber vessel. RIGHT CORONARY ARTERY: The right coronary is moderate in caliber, co-dominant in distribution. It gives rise to a sinoatrial branch shortly after its origin, two right ventricular branches and then terminates as a partial posterior descending artery distribution vessel getting the proximal portion of the area of distribution. There is no AV groove portion. Within the right coronary artery, there are diffuse luminal irregularities with 50%-60% mid-vessel stenosis. LEFT VENTRICULAR ANGIOGRAPHY: The left ventricle was nondilated. There was mild diffuse hypokinesis with focal hypokinesis of the mid septum and apex. Ejection fraction 45%. HEMODYNAMICS: Initial aortic root pressure was 141/86, mean of 113. LV pressure was 139/26 with an LVEDP of 30. FINAL IMPRESSIONS: 1. Co-dominant coronary anatomy with a very large left circumflex. 2. Severe single vessel coronary disease with a subtotal long 99% stenosis at the ostial and proximal left anterior descending with a thin distal distribution vessel with FAM 2 flow and collateral competition, demonstrating a long type 2 LAD and bifurcating LAD diagonal. 3. Moderate narrowing of the mid portion of a co-dominant right coronary artery, 50%-60%. 4. Hypokinesis of the anterior septum and apex. EF 45%. 5. Elevated left end-diastolic pressures. RECOMMENDATIONS: After discussion, the patient will be referred for an attempt at coronary intervention of the left anterior descending for optimized distal flow, given contractility noted on LV angiogram. Following the procedure optimal medical therapy will need to be initiated, including MICAH inhibitor, beta-juan and continued statins and aspirin. Further recommendations pending the results of intervention.
[2017-03-07 00:37] VITALS: BP 100/67; PULSE 72; TEMP 36.9; O2SAT 94
[2017-03-07 04:28] VITALS: BP 127/83; PULSE 73; TEMP 37; O2SAT 96
[2017-03-07 06:05] LABS: BASO % 0.2 %; BASO ABS # 0.02 K/uL (0-0.2); COMPLETE YES; EOS % 1.2 %; HEMATOCRIT 45.8 % (37-47); IG% 0.4 %; LYMPH % 22.4 %; LYMPH ABS # 2.24 K/uL (1.2-3.4); MEAN CELL VOLUME 81.3 fL (80-100); MEAN CORPUSCULAR HEMOGLOBIN 27.5 pg (25-34); MEAN CORPUSCULAR HGB CONC 33.8 g/dl (32-36); MEAN PLATELET VOLUME 9.6 fL (7.4-10.4); MONO % 8.2 %; NEUT % 67.6 %; PLATELET COUNT 251 K/uL (130-400); RED BLOOD COUNT 5.63 M/uL (4.2-5.4)
[2017-03-07 06:54] LABS: BUN/CREATININE RATIO 15.6 (10-20); CALCIUM 8.9 mg/dl (8.5-10.1); CREATININE 0.81 mg/dl (0.60-1.20); POTASSIUM 4.3 mmol/L (3.5-5.1)
[2017-03-07 06:57] LABS: CHOLESTEROL/HDL RATIO 6.2
[2017-03-07 07:17] VITALS: BP 111/69; PULSE 71; TEMP 36.6; O2SAT 94
[2017-03-07] MEDS: METOPROLOL TARTRATE 25 MG TAB PO SCH (08:49)
[2017-03-07] MEDS ORDERED: CLOPIDOGREL BISULFATE 75 MG TAB PO SCH (09:00)
[2017-03-07] MEDS ORDERED: ASPIRIN 81 MG ECTAB PO SCH (09:00)
[2017-03-07] MEDS ORDERED: ENOXAPARIN 40 MG/0.4 ML SYR SQ SCH (09:00)
[2017-03-07] MEDS ORDERED: ATORVASTATIN 40 MG TAB PO SCH (09:00)
[2017-03-07 11:22] VITALS: BP 112/72; PULSE 73; TEMP 36.4; O2SAT 95
--- NOTE | 2017-03-07 13:23 | CARDIOLOGY PROGRESS NOTE ---
DATE: 03/07/2017 DATE: 03/07/2017 The patient seen and examined. Chart, medications, telemetry reviewed. SUBJECTIVE: The patient feels improved this morning. Notes no chest pains or worsening shortness of breath. Was ambulatory in room. Notes no bleeding difficulties at access sites. Tolerating current changes in medications. OBJECTIVE: VITAL SIGNS: Heart rate 73, blood pressure is 112/72. Telemetry reveals no arrhythmias. I's and O's reflect approximately 2 liter diuresis overnight. NECK: Thick. There is no jugular venous distention. LUNGS: Clear to auscultation. CARDIOVASCULAR: Regular. There is no S3 gallop. ABDOMEN: Soft, obese, nontender. EXTREMITIES: Without cyanosis or clubbing. There are chronic stasis changes in lower extremities. LABORATORY DATA: White cell count is 10.0, hemoglobin is 15.5, hematocrit is 45.8, sodium is 137, potassium is 4.3, chloride is 103, bicarb 27, BUN is 13, creatinine 0.8. Hemoglobin A1c 6.4. Cholesterol was 266, LDL 187, HDL 43. IMPRESSION: A 46-year-old female presented with crescendo angina manifesting as severe exertional dyspnea. Cardiac catheterization demonstrating severe LAD diagonal disease with subtotally occluded ostial left anterior descending receiving drug-eluting stents to the left anterior descending and diagonal now clinically stable. RECOMMENDATIONS: The patient to ambulate, if stable may be discharged today. Would discharge on current medical regimen which includes aspirin and clopidogrel uninterrupted for 1 year's time, high dose statin with atorvastatin 80 mg per day, metoprolol beta juan at 25 mg q. 12 hours and prior dosing of furosemide at 20 mg per day. Consideration may be made for the addition of MICAH inhibitor post-hospital discharge. Cardiac rehab should be consulted, patient closer to [facility]. Arrangements will be made for outpatient followup in the next 3-4 weeks' time through [facility]. Tobacco cessation strongly emphasized. The patient likely will warrant outpatient sleep management and testing as well with strong suspicion from both patient and positions part of obstructive sleep apnea. Primary care physician Dr. Smyth . JASON
--- NOTE | 2017-03-07 13:39 | Progress Note ---
Internal Med Progress Note Date of Service: Mar 07, 2017. Provider Documentation: SUBJECTIVE: The patient was seen and examined Admitted with Abnormal Stress test S/P Cardiac Cath and 2 stents in LAD Denies any pain OBJECTIVE: Vital Signs-as noted below Exam: General-no distress at rest Eyes-normal ENT-normal Neck-supple Lungs-Clear to auscultate bilaterally Heart-Regular,no murmur Abdomen-Benign,no jose,bowel sound present Extremities-Trace edema bilaterally Neuro-AAOx3 Lab data as noted below. ASSESSMENT & PLAN: UNSTABLE ANGINA / ABNORMAL STRESS TEST Multiple risk factors for ischemic heart disease. Progressive chest discomfort and dyspnea on exertion. Treadmill stress echo showed wall motion abnormalities at rest and worsening with exertion as summarized in HPI. Received aspirin in clinic. Appreciate cardiology input S/P Cardiac Cath 03/06/17 -MICAH in LAD and Diagonal Aspirin and Plavix for at least 1 year BB,Statin and ACEI down the line Cardiac rehab and smoke cessation HYPERTENSION Cardiovascular meds to be determined after cardiac cath performed. DM TYPE 2 Treated with metformin in the past, now diet-controlled. Random glucose in ED 84. Check Hgb A1C-6.4. DYSLIPIDEMIA Check lipid profile. Continue atorvastatin. HISTORY CROHN'S DISEASE Quiescent. SMOKING Smoking cessation counseling. Hold Chantix and nicotine products due to unstable angina. VTE PROPHYLAXIS To be determined after cardiac cath. RESUSCITATION STATUS Full code. DISPOSITION Admit to Telemetry Unit. Expected discharge to home. Family Medicine follow-up with Dr. Smyth. Cardiology follow-up with [facility]. Vital Signs: Date Time Temp Pulse Resp B/P (MAP) Pulse Ox O2 Delivery O2 Flow Rate FiO2 03/07/17 12:00 Room Air 03/07/17 11:22 36.4 73 18 112/72 (85) 95 Room Air 03/07/17 08:00 Room Air 03/07/17 07:17 36.6 71 18 111/69 (83) 94 Room Air 03/07/17 04:28 37.0 73 19 127/83 (98) 96 Room Air 03/07/17 04:00 Room Air 03/07/17 00:37 36.9 72 20 100/67 (78) 94 Room Air 03/07/17 00:01 Room Air 03/06/17 22:00 87 126/91 (103) 03/06/17 21:30 93 150/94 (112) 03/06/17 21:00 97 156/91 (112) 03/06/17 20:45 103 152/109 (123) 03/06/17 20:30 91 159/94 (115) 03/06/17 20:15 93 152/86 (108) 03/06/17 20:00 Room Air 03/06/17 19:00 88 166/98 (120) 03/06/17 18:31 86 18 168/108 (128) 95 Room Air 03/06/17 18:31 95 Room Air 03/06/17 18:04 83 18 134/86 (102) 95 Mask 03/06/17 17:59 85 18 136/101 (113) 95 Mask 03/06/17 17:54 85 18 143/96 (112) 94 Mask 03/06/17 17:49 86 16 156/100 (118) 95 Mask 4 03/06/17 13:38 86 22 97 Lab Results: Results Past 24 Hours Test 03/06/17 18:47 03/07/17 05:48 Range/Units Prothrombin Time 10.7 9.0-12.0 SECONDS Prothromb Time International Ratio 1.0 0.9-1.1 Activated Partial Thromboplast Time 118.2 21.0-31.0 SECONDS Partial Thromboplastin Ratio 4.5 White Blood Count 10.00 4.8-10.8 K/uL Red Blood Count 5.63 4.2-5.4 M/uL Hemoglobin 15.5 12.0-16.0 g/dL Hematocrit 45.8 37-47 % Mean Corpuscular Volume 81.3 80-100 fL Mean Corpuscular Hemoglobin 27.5 25-34 pg Mean Corpuscular Hemoglobin Concent 33.8 32-36 g/dl Platelet Count 251 130-400 K/uL Mean Platelet Volume 9.6 7.4-10.4 fL Neutrophils (%) (Auto) 67.6 % Lymphocytes (%) (Auto) 22.4 % Monocytes (%) (Auto) 8.2 % Eosinophils (%) (Auto) 1.2 % Basophils (%) (Auto) 0.2 % Neutrophils # (Auto) 6.76 1.4-6.5 K/uL Lymphocytes # (Auto) 2.24 1.2-3.4 K/uL Monocytes # (Auto) 0.82 0.11-0.59 K/uL Eosinophils # (Auto) 0.12 0-0.5 K/uL Basophils # (Auto) 0.02 0-0.2 K/uL RDW Standard Deviation 52.0 36.4-46.3 fL RDW Coefficient of Variation 17.4 11.5-14.5 % Immature Granulocyte % (Auto) 0.4 % Immature Granulocyte # (Auto) 0.04 0.00-0.02 K/uL Sodium Level 137 136-145 mmol/L Potassium Level 4.3 3.5-5.1 mmol/L Chloride Level 103 98-107 mmol/L Carbon Dioxide Level 27 21-32 mmol/L Anion Gap 7.0 3-11 mmol/L Blood Urea Nitrogen 13 7-18 mg/dl Creatinine 0.81 0.60-1.20 mg/dl Est Creatinine Clear Calc Drug Dose 121.4 ml/min Estimated GFR () 99.5 Estimated GFR (Non- 85.9 BUN/Creatinine Ratio 15.6 10-20 Random Glucose 102 70-99 mg/dl Estimated Average Glucose 137 mg/dl Hemoglobin A1c 6.4 4.5-5.6 % Calcium Level 8.9 8.5-10.1 mg/dl Triglycerides Level 179 0-150 mg/dl Cholesterol Level 266 0-200 mg/dl HDL Cholesterol 43 mg/dl LDL Cholesterol, Calculated 187 mg/dl VLDL Cholesterol, Calculated 36 mg/dl Cholesterol/HDL Ratio 6.2
[2017-03-07 15:16] VITALS: BP 118/66; PULSE 78; TEMP 36.4; O2SAT 95
[2017-03-07] MEDS ORDERED: LPR25 PO (15:18)
[2017-03-07] MEDS ORDERED: NTRSLP4 SL (15:18)
[2017-03-07] MEDS ORDERED: ASPEC81 PO (15:18)
[2017-03-07] MEDS ORDERED: PLV75 PO (15:18)
--- NOTE | 2017-03-07 15:24 | Discharge Instructions ---
Discharge Instructions Date of Service Mar 07, 2017. Admission Reason for Admission: Unstable Angina Discharge Discharge Diagnosis / Problem: CAD ,s/p Cardiac Cath with 2 MICAH in LAD and Diagonal Discharge Goals Goal(s): Prevent Disease Progression Activity Recommendations Activity Limitations: resume your previous activity (Take it easy for a fea days) . Instructions / Follow-Up Instructions / Follow-Up Dr Ha on 03/12/17 at 11:05 AM ( dr Smyth is not available).Cardiology will call with appointment.Will need OP Sleep study Current Hospital Diet Patient's current hospital diet: AHA Diet (Heart Healthy) Discharge Diet Recommended Diet: AHA Diet (Heart Healthy) Pending Studies Studies pending at discharge: no Laboratory Results Hemoglobin A1c Test 03/07/17 05:48 Range/Units Estimated Average Glucose 137 mg/dl Hemoglobin A1c 6.4 H 4.5-5.6 % Lipid Panel Test 03/07/17 05:48 Range/Units Triglycerides Level 179 H 0-150 mg/dl Cholesterol Level 266 H 0-200 mg/dl HDL Cholesterol 43 mg/dl Cholesterol/HDL Ratio 6.2 LDL Cholesterol, Calculated 187 mg/dl Medical Emergencies . Who to Call and When: Medical Emergencies: If at any time you feel your situation is an emergency, please call 911 immediately. . Non-Emergent Contact Non-Emergency issues call your: Primary Care Provider . Past History Medical & Surgical History: (1) TOBACCO USE DISORDER (2) CHR AIRWAY OBSTRUCT NEC (3) Unstable angina (4) Hypertension (5) History of bladder cancer (6) OBESITY, NOS (7) Status post tubal ligation . "Provider Documentation" section prepared by Vianey Moore. . VTE Core Measure Inpt VTE Proph given/why not?: Enoxaparin (Lovenox)SQ
[2017-03-07 15:28] VITALS: BP 118/66; PULSE 78; TEMP 36.4; O2SAT 95
--- NOTE | 2017-03-08 07:34 | Discharge Summary ---
Discharge Summary Date of Service Mar 08, 2017. Discharge Summary Admission Date: Mar 06, 2017 at 12:59 Discharge Date: Mar 07, 2017 Discharge Disposition: Home Principal Diagnosis: CAD ,s/p Cardiac Cath with 2 MICAH in LAD and Diagonal Secondary Diagnoses/Problems: Please see H&P and Hospital progress note Procedures: Cardiac Cath Consultations: Cardiology Medication Reconciliation New Medications: Aspirin (Aspirin EC Low Dose) 81 Mg Ectab 81 MG PO QAM for 30 Days, #30 Clopidogrel Bisulfate (Clopidogrel) 75 Mg Tab 75 MG PO QAM for 30 Days, #30 TAB Metoprolol Tartrate (Lopressor) 25 Mg Tab 25 MG PO Q12 for 30 Days, #60 TAB Nitroglycerin (Nitrostat) 0.4 Mg/1 Tab Subl 0.4 MG SL UD PRN for Chest Pain for 30 Days, #25 Continued Medications: Albuterol Hfa (Ventolin Hfa) 200 Puffs/68427 Mcg Aers 2 PUFFS INH Q4H PRN for Wheezing, INHALER Atorvastatin (Atorvastatin Calcium) 40 Mg Tab 80 MG PO DAILY, TAB Furosemide (Furosemide) 20 Mg Tab 20 MG PO DAILY Varenicline (Chantix) 1 Mg Tab 1 MG PO DIRECTED, TAB Admission Information HPI (per Admitting provider): 46 YO female followed by Dr. Smyth for Family Medicine. History of suspected ischemic heart disease. She had an abnormal nuclear stress study performed in [place] last year. Cardiac catheterization was recommended, but she declined because she did not have insurance coverage at that time. Also has history of hypertension, diet-controlled DM type 2, dyslipidemia, and other problems noted below. Experiencing chest tightness and dyspnea on exertion for some time. Sometimes experiences paresthesiae of left arm and nausea associated with the chest tightness. Symptoms relieved by rest. Recently only able to ambulate for about 5 minutes before developing symptoms. Referred for treadmill stress echo with Dr. Verdugo. Baseline EKG demonstrated septal Q-waves V1-3. Resting echo demonstrated wall motion abnormalities anteroseptally and apically , consistent with ischemic heart disease. Study was stopped during Edward stage I due to fatigue and dyspnea. 3-beat run of ventricular tachycardia and ST depression noted. Post stress echo demonstrated expansion of previously noted anteroseptal and apical hypokinesis as well as new hypokinesis of the anterior and lateral montes. Had runs of SVT during recovery. Symptoms resolved with rest. ASA 324 mg administered in clinic. Patient referred to ED for further evaluation and management. Pain-free and breathing comfortably at time of my assessment. Pt's risk factors for ischemic heart disease: dyslipidemia, hypertension, smoking Past Medical/Surgical History Chronic and Resolved Medical Problems: (1) CHR AIRWAY OBSTRUCT NEC Status: Chronic (2) DIAB MILDRED WO COMPL, TYPE II OR UNSPEC TYPE, NOT UNCNTRLD Status: Chronic (3) Dyslipidemia Status: Chronic (4) EDEMA Status: Chronic (5) History of bladder cancer Status: Chronic (6) Hypertension Status: Chronic (7) LUMBAGO Status: Chronic (8) OBESITY, NOS Status: Chronic (9) TOBACCO USE DISORDER Status: Chronic Surgical Problems: (1) Status post tubal ligation Status: Chronic (1) Status post cystoscopy / resection bladder tumor Status: Chronic . Family History Diabetes mellitus GRANDMOTHER Social History Smoking Status: Current Every Day Smoker Alcohol Use: none Drug Use: none Marital Status: single Housing status: lives with family Occupational Status: unemployed Immunizations History of Influenza Vaccine: N/A History of Tetanus Vaccine?: Yes Tetanus Immunization Date: Nov 29, 2012 History of Pneumococcal: No History of Hepatitis B Vaccine: Yes Multi-Drug Resistant Organisms History of MDRO: No Allergies Coded Allergies: No Known Allergies (Verified , 03/06/17) Home Medications Scheduled Atorvastatin (Atorvastatin Calcium), 40 MG PO DAILY Furosemide (Furosemide), 20 MG PO DAILY Varenicline (Chantix), 1 MG PO DIRECTED Scheduled PRN Albuterol Hfa (Ventolin Hfa), 2 PUFFS INH Q4H PRN for Wheezing Review of Systems Constitutional: No fever, No weight loss Eyes: No worsening of vision, No diplopia ENT: No nasal symptoms, No sore throat Respiratory: + cough (occasional), + dyspnea on exertion Cardiovascular: + edema, + problem reported (as noted in HPI) Abdomen: No pain, No nausea, No vomiting, No diarrhea, No GI bleeding Musculoskeletal: + joint pain Neurologic: + problem reported (intermittent headaches) Endocrine: No excessive thirst, No excessive urination Hematologic / Lymphatic: + abnormal bleeding/bruising, No swollen lymph nodes Integumentary: + rash (chronic rash lower extremities) Physical Exam Vital Signs Date Time Temp Pulse Resp B/P (MAP) Pulse Ox O2 Delivery O2 Flow Rate FiO2 03/06/17 12:25 90 03/06/17 12:16 36.9 87 18 145/94 95 Room Air 03/06/17 12:16 95 Room Air General Appearance: WD/WN, no apparent distress Head: normocephalic, atraumatic Eyes: normal inspection, PERRL, EOMI, sclerae normal (conjunctivae pink) ENT: hearing grossly normal, pharynx normal, + pertinent finding (upper dentures; lower dentition poor) Neck: supple, no adenopathy, thyroid normal, no JVD, trachea midline Respiratory/Chest: lungs clear, no respiratory distress, no accessory muscle use Cardiovascular: regular rate, rhythm, no JVD, no murmur, normal peripheral pulses, + gallop/S4, + pertinent finding (3+ pretibial and pedal edema) Abdomen/GI: normal bowel sounds, non tender, soft, no organomegaly (exam limited due to body habitus), no pulsatile mass Extremities/Musculoskelatal: no calf tenderness, normal capillary refill Neurologic/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: 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 as tested (PERRL, EOMI, no facial palsy, no dysarthira), no motor/sensory deficits (grossly intact), alert, normal mood/ affect, normal reflexes (patellar reflexes 1/2 bilat, plantar reflexes downgoing bilat), oriented x 3 Skin: warm/dry, + pertinent finding (chronic venous stasis changes lower extremities) Lymphatic: no adenopathy (cervical) Diagnostics Laboratory Results Results Past 24 Hours Test 03/06/17 12:29 03/06/17 12:35 Range/Units White Blood Count 9.84 4.8-10.8 K/uL Red Blood Count 5.56 4.2-5.4 M/uL Hemoglobin 15.0 12.0-16.0 g/dL Hematocrit 46.0 37-47 % Mean Corpuscular Volume 82.7 80-100 fL Mean Corpuscular Hemoglobin 27.0 25-34 pg Mean Corpuscular Hemoglobin Concent 32.6 32-36 g/dl RDW Standard Deviation 52.3 36.4-46.3 fL RDW Coefficient of Variation 17.5 11.5-14.5 % Platelet Count 254 130-400 K/uL Mean Platelet Volume 9.4 7.4-10.4 fL Creatine Kinase MB Ratio 0-3.0 Diagnostic Radiology CHEST ONE VIEW PORTABLE FINDINGS: Image quality is degraded due to underpenetration. Cardiac silhouette remains enlarged. Persistent peribronchial cuffing noted. Lungs and pleural spaces clear. Osseous structures normal. Upper abdomen normal. IMPRESSION: 1. Persistent bronchial wall thickening, which could be seen in the setting of bronchitis or reactive airways disease as well as a consequence of congestion/volume overload. No new focal infiltrate allowing for underpenetration. 2. Mild cardiomegaly. Electronically signed by: Sanchez Smyth M.D. 03/06/2017 1:05 PM . EKG EKG performed at 12:13 reviewed and demonstrated NSR at 82 / minute, possible age-indeterminate septal infarct, minimal ST depression (0.5 mm) leads I, aVF. . Impression Assessment and Plan UNSTABLE ANGINA / ABNORMAL STRESS TEST Multiple risk factors for ischemic heart disease. Progressive chest discomfort and dyspnea on exertion. Treadmill stress echo showed wall motion abnormalities at rest and worsening with exertion as summarized in HPI. Received aspirin in clinic. Cardiology consulted. Cardiac cath is be planned for later today. Further management per Cardiology. HYPERTENSION Cardiovascular meds to be determined after cardiac cath performed. DM TYPE 2 Treated with metformin in the past, now diet-controlled. Random glucose in ED 84. Check Hgb A1C. Follow. DYSLIPIDEMIA Check lipid profile. Continue atorvastatin. HISTORY CROHN'S DISEASE Quiescent. SMOKING Smoking cessation counseling. Hold Chantix and nicotine products due to unstable angina. VTE PROPHYLAXIS To be determined after cardiac cath. RESUSCITATION STATUS Full code. DISPOSITION Admit to Telemetry Unit. Expected discharge to home. Family Medicine follow-up with Dr. Smyth. Cardiology follow-up with [facility]. VTE Prophylaxis VTE Risk Assessment Done? Y/N: Yes Risk Level: Moderate Additional Copies To Ruel Smyth M.D. <Electronically signed by Rober Akhtar M.D.> Signed: 03/06/17 1422 . Physical Exam (per Admitting): General Appearance: WD/WN, no apparent distress Head: normocephalic, atraumatic Eyes: normal inspection, PERRL, EOMI, sclerae normal (conjunctivae pink) ENT: hearing grossly normal, pharynx normal, + pertinent finding (upper dentures; lower dentition poor) Neck: supple, no adenopathy, thyroid normal, no JVD, trachea midline Respiratory/Chest: lungs clear, no respiratory distress, no accessory muscle use Cardiovascular: regular rate, rhythm, no JVD, no murmur, normal peripheral pulses, + gallop/S4, + pertinent finding (3+ pretibial and pedal edema) Abdomen/GI: normal bowel sounds, non tender, soft, no organomegaly (exam limited due to body habitus), no pulsatile mass Extremities/Musculoskelatal: no calf tenderness, normal capillary refill Neurologic/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 Progressive chest discomfort and dyspnea on exertion. Treadmill stress echo showed wall motion abnormalities at rest and worsening with exertion as summarized in HPI. Received aspirin in clinic. Appreciate cardiology input S/P Cardiac Cath 03/06/17 -MICAH in LAD and Diagonal Aspirin and Plavix for at least 1 year BB,Statin and ACEI down the line Cardiac rehab and smoke cessation HYPERTENSION Cardiovascular meds to be determined after cardiac cath performed. DM TYPE 2 Treated with metformin in the past, now diet-controlled. Random glucose in ED 84. Check Hgb A1C-6.4. DYSLIPIDEMIA Check lipid profile. Continue atorvastatin. HISTORY CROHN'S DISEASE Quiescent. SMOKING Smoking cessation counseling. Hold Chantix and nicotine products due to unstable angina. VTE PROPHYLAXIS To be determined after cardiac cath. RESUSCITATION STATUS Full code. DISPOSITION Admit to Telemetry Unit. Expected discharge to home. Family Medicine follow-up with Dr. Smyth. Cardiology follow-up with [facility]. Total time spent on discharge = 35 minutes This includes examination of the patient, discharge planning, medication reconciliation, and communication with other providers. Discharge Instructions Date of Service Mar 07, 2017. Admission Reason for Admission: Unstable Angina Discharge Discharge Diagnosis / Problem: CAD ,s/p Cardiac Cath with 2 MICAH in LAD and Diagonal Discharge Goals Goal(s): Prevent Disease Progression Activity Recommendations Activity Limitations: resume your previous activity (Take it easy for a fea days) . Instructions / Follow-Up Instructions / Follow-Up Dr Ha on 03/12/17 at 11:05 AM ( dr Smyth is not available).Cardiology will call with appointment.Will need OP Sleep study Current Hospital Diet Patient's current hospital diet: AHA Diet (Heart Healthy) Discharge Diet Recommended Diet: AHA Diet (Heart Healthy) Pending Studies Studies pending at discharge: no Laboratory Results Hemoglobin A1c Test 03/07/17 05:48 Range/Units Estimated Average Glucose 137 mg/dl Hemoglobin A1c 6.4 H 4.5-5.6 % Lipid Panel Test 03/07/17 05:48 Range/Units Triglycerides Level 179 H 0-150 mg/dl Cholesterol Level 266 H 0-200 mg/dl HDL Cholesterol 43 mg/dl Cholesterol/HDL Ratio 6.2 LDL Cholesterol, Calculated 187 mg/dl Medical Emergencies . Who to Call and When: Medical Emergencies: If at any time you feel your situation is an emergency, please call 911 immediately. . Non-Emergent Contact Non-Emergency issues call your: Primary Care Provider . Past History Medical & Surgical History: (1) TOBACCO USE DISORDER (2) CHR AIRWAY OBSTRUCT NEC (3) Unstable angina (4) Hypertension (5) History of bladder cancer (6) OBESITY, NOS (7) Status post tubal ligation . "Provider Documentation" section prepared by Vianey Moore. . VTE Core Measure Inpt VTE Proph given/why not?: Enoxaparin (Lovenox)SQ <Electronically signed by Vianey Moore M.D.> Signed: 03/07/17 2660 Additional Copies To Ruel Smyth M.D.
== END 2017-03-07 18:37 | disposition home or self-care (01) | DRG 247 ==
LOC: EDBD 12:08 → C.EDA 12:09 → C.2E 12:59 → ENRESERV 13:28
PROVIDERS: ADMIT Hospitalist; ATTEND Internal Medicine
PROC: 4A023N7 Measurement of Cardiac Sampling and Pressure, Left Heart, Percutaneous Approach (ICD-10-PCS; 2017-03-06)
PROC: B211YZZ Fluoroscopy of Multiple Coronary Arteries using Other Contrast (ICD-10-PCS; 2017-03-06)
PROC: 0270356 Dilation of Coronary Artery, One Artery, Bifurcation, with Two Drug-eluting Intraluminal Devices, Percutaneous Approach (ICD-10-PCS; principal; 2017-03-06 14:10)
DX: I25.110 Atherosclerotic heart disease of native coronary artery with unstable angina pectoris (principal); Z68.43 Body mass index [BMI] 50.0-59.9, adult; I10 Essential (primary) hypertension; E11.9 Type 2 diabetes mellitus without complications; E78.5 Hyperlipidemia, unspecified; E66.9 Obesity, unspecified; F17.200 Nicotine dependence, unspecified, uncomplicated; Z79.899 Other long term (current) drug therapy

== ENCOUNTER 2019-04-01 12:11 | Inpatient (IN) ==
[2019-04-01 13:21] LABS: Basophils # (auto) 0.02 K/uL (0-0.2); Basophils % (auto) 0.2 %; Eosinophils # (auto) 0.22 K/uL (0-0.5); Hemoglobin 12.6 g/dL (12.0-16.0); Immature Granulocytes # (auto) 0.04 K/uL (0.00-0.02); Immature Granulocytes % (auto) 0.4 %; Lymphocytes # (auto) 2.18 K/uL (1.2-3.4); Lymphocytes % (auto) 20.1 %; Mean Corpuscular Hemoglobin 24.4 pg (25-34); Mean Corpuscular Hgb Conc 31.5 g/dL (32-36); Mean Corpuscular Volume 77.5 fL (80-100); Mean Platelet Volume 8.7 fL (7.4-10.4); Monocytes % (auto) 6.4 %; Neutrophils # (auto) 7.71 K/uL (1.4-6.5); Neutrophils % (auto) 70.9 %; Platelet Count 317 K/uL (130-400); RDW Coefficient of Variation 20.8 % (11.5-14.5); RDW Standard Deviation 58.6 fL (36.4-46.3); Red Blood Count 5.16 M/uL (4.2-5.4); White Blood Count 10.87 K/uL (4.8-10.8)
[2019-04-01 13:52] LABS: Albumin Level 2.8 gm/dl (3.4-5.0); BUN Creatinine Ratio 11.5 (10-20); Calcium 8.8 mg/dl (8.5-10.1); Creatinine Clr Calc Pharmacy 131.8 ml/min; Est GFR (African American) 101.2; Est GFR (Non-African American) 87.3; Potassium 3.8 mmol/L (3.5-5.1)
[2019-04-01 13:55] LABS: Albumin Globulin Ratio 0.6 (0.9-2); Bilirubin,Total 0.4 mg/dl (0.2-1); Globulin 4.7 gm/dl (2.5-4.0); Total Protein 7.5 gm/dl (6.4-8.2)
[2019-04-01 14:04] LABS: Anisocytosis Present
[2019-04-01] MEDS ORDERED: PIPERACILL/TAZOBAC CONSULT ACTIVE PRN (14:23)
[2019-04-01] MEDS ORDERED: PIPERACILLIN/TAZOBACTAM 4.5 GM/120 ML BAG IV ONE (14:23)
[2019-04-01] MEDS ORDERED: VANCOMYCIN CONSULT ACTIVE PRN (14:23)
[2019-04-01] MEDS ORDERED: VANCOMYCIN HCL 2,750 MG in SODIUM CHLORIDE 0.9% 500 ML IV ONE (14:23)
--- NOTE | 2019-04-01 14:46 | History & Physical Report ---
Date of Service April 01, 2019 Assessment & Plan (1) Cellulitis of left lower leg: Uncontrolled with oral Cipro. Expand coverage to include vancomycin and cefepime. Consult infectious diseases. Consulted wound care to address open wound. Wound culture pending. Blood cultures pending in setting of chills. Currently hemodynamically stable and afebrile. Continue supportive care in addition to this. (2) Venous ulcer of left leg: Wound care as above. Continue daily Lasix for chronic venous insufficiency per home regimen. (3) DM II (diabetes mellitus, type II), controlled: Hold glipizide, utilize basal bolus insulin while admitted. Blood sugar checks 4 times daily. Diabetic diet offered. (4) COPD (chronic obstructive pulmonary disease): Chronic, stable. Patient is still smoking. NicoDerm patch given. Nebulizers as needed (5) Smoking: NicoDerm patch. Patient is not interested in quitting at this time. (6) PVD (peripheral vascular disease): Continue medical management including Lopressor, Plavix, Lipitor, aspirin. (7) Depression: Continue fluoxetine per home regimen. (8) Obesity: (9) DVT prophylaxis: Lovenox Full code Dispo-pending infectious disease recommendations and clinical response to antibiotics. Arelis Rodriguez DO [facility] Hospitalist History of Present Illness Chief Complaint: LLE cellulitis Primary Care Provider: Ruel Smyth MD 48-year-old female with chronic venous insufficiency, lymphedema and chronic venous ulceration of the left leg presents with worsening drainage and erythema of the lower left extremity consistent with a cellulitis. She is a history of Pseudomonas and is a diabetic. She is frequently seen in the wound care clinic with her last visit on 03/25. At that time she was placed on ciprofloxacin but has continued to feel worse. She has been experiencing chills and persistent drainage. In total she reports symptoms ongoing for the past 3 weeks. She received a debridement in this area over the summer which helped her for a couple of months. She otherwise denies any fevers, chest pain, shortness of breath or other symptoms at this time. Allergies Allergy/AdvReac Type Severity Reaction Status Date / Time No Known Drug Allergies Allergy Verified 04/01/19 14:30 Home Medications Home Medications Medication Instructions Recorded Confirmed Type aspirin 81 mg tablet,delayed 81 mg PO QAM 07/30/18 04/01/19 History release atorvastatin 40 mg tablet 40 mg PO QAM 07/30/18 04/01/19 History clopidogrel 75 mg tablet 75 mg PO QAM 07/30/18 04/01/19 History metoprolol tartrate 25 mg tablet 12.5 mg PO BID tab 07/30/18 04/01/19 History acetaminophen [Tylenol Extra 500 mg PO Q6H PRN 12/12/18 04/01/19 History Strength] fluoxetine 40 mg PO QAM 12/12/18 04/01/19 History mometasone-formoterol [Dulera] 2 puff INHALATION Q12H PRN 12/12/18 04/01/19 History glipizide 5 mg tablet 5 mg PO BID 01/23/19 04/01/19 History furosemide 40 mg tablet 40 mg PO QAM tab 01/28/19 04/01/19 History sulfamethoxazole 800 1 tab PO BID tab 03/28/19 04/01/19 History mg-trimethoprim 160 mg tablet ampicillin 500 mg capsule 500 mg PO tid 14 Days #42 cap 03/31/19 04/01/19 Rx Past Med/Surg History Medical History COPD (chronic obstructive pulmonary disease) (Chronic) Crohns disease (Chronic) Depression (Chronic) Diabetes mellitus, type 2 (Chronic) NIDDM Dyslipidemia (Chronic) HTN (hypertension) (Chronic) Bladder cancer (Resolved) H/O Myocardial Infarction (Resolved) 03/2017 Surgical History History of bunionectomy (Resolved) History of cardiac cath (Resolved) 03/2017 - [facility] - X 1 STENT - FOLLOWS W/ DR. SEGUNDO History of colonoscopy (Resolved) History of esophagogastroduodenoscopy (EGD) (Resolved) History of heart artery stent (Resolved) x 1 History of loop electrical excision procedure (LEEP) (Resolved) History of tooth extraction (Resolved) S/P dilation and curettage (Resolved) S/P tubal ligation (Resolved) Status post endovenous radiofrequency ablation (RFA) of saphenous vein (Resolved) left great saphenous vein Status post surgical removal and fulguration of bladder neoplasm (Resolved) Family History Grandfather (Maternal) Family history of diabetes mellitus Mother Family history of diabetes mellitus Social History Preferred Language: Vietnamese Communication Ability: Effective Visual Impairment: No Limitations Hearing Ability: Normal Field Cashier Required: No Beliefs That Will Affect Care: None marital status: Single Current Living Situation: Alone Current Living Situation Comment: SON LIVESE WITH PT current occupational status: unemployed Other Information That Helps Us Care for You: No Feels Safe at Home: Yes Safety Concerns: Feels Safe At This Time Smoking Status: Current every day smoker Tobacco Type: cigarettes ; packs per day: 0.5 ; Cigarettes Per Day: 20 ; Second Hand Exposure: No ; Tobacco Cessation Education Requested by Patient: No Hx Alcohol Use: No Hx Substance Use: No Childhood Exposure to Second-Hand Smoke: Yes Review of Systems Review of Systems: At least 10 systems were reviewed and negative except as noted in HPI above. Physical Exam Physical Exam: CONSTITUTIONAL: morbidly obese, vitals as above, generally well-appearing EYES: normal conjunctivae, no scleral icterus ENT: MMM RESPIRATORY: clear to auscultation bilaterally, no crackles, rales or wheezes, normal respiratory effort CARDIOVASCULAR: regular rate and rhythm, S1 and 2 heard without murmurs, gallops or rubs, no JVD, no peripheral edema but large legs with woody appearance to the skin. Posterior left leg with superficial wound that is open and wet, softball-sized with surrounding erythema. GASTROINTESTINAL: normal bowel sounds, soft, nontender, nondistended MUSCULOSKELETAL: strength 5/5 throughout, head is normocephalic and atraumatic SKIN: warm and dry, and wound as described above. NEUROLOGIC: CN 2-12 grossly intact, normal cognition, normal speech, no gross focal deficits. PSYCHIATRIC: alert cooperative and oriented to person, place and time. Results & Data Vital Signs (Past 12 Hours) Vital Signs Temp Pulse Resp BP Pulse Ox 04/01/19 13:29 96 04/01/19 12:22 36.6 C 88 20 158/87 H 96 Laboratory Results Short CBC 04/01/19 Range/Units 13:11 WBC 10.87 H (4.8-10.8) K/uL Hgb 12.6 (12.0-16.0) g/dL Hct 40.0 (37-47) % Plt Count 317 (130-400) K/uL BMP 04/01/19 13:11 Sodium 140 Potassium 3.8 Chloride 104 Carbon Dioxide 30 BUN 9 Creatinine 0.79 Glucose 104 H Calcium 8.8 Liver Function 04/01/19 Range/Units 13:11 Total Bilirubin 0.4 (0.2-1) mg/dl AST 10 L (15-37) U/L ALT 22 (12-78) U/L Alkaline Phosphatase 132 H (45-117) U/L Albumin 2.8 L (3.4-5.0) gm/dl Medications Administered Current Inpatient Medications Piperacillin Sod/Tazobactam Sod (Zosyn) 4.5 gm in 120 mls @ 240 mls/hr IV NOW ONE Stop: 04/01/19 14:52 Last Admin: 04/01/19 14:32 Dose: 240 mls/hr Documented by: Vancomycin HCl 2,750 mg/ (Sodium Chloride) 555 mls @ 200 mls/hr IV NOW ONE Stop: 04/01/19 17:12 Last Admin: 04/01/19 14:44 Dose: 200 mls/hr Documented by: Miscellaneous Information (Consult) 1 ea N/A UD PRN PRN Reason: Consult Stop: 05/01/19 14:22 Miscellaneous Information (Consult) 1 ea N/A UD PRN PRN Reason: Consult Stop: 05/01/19 14:22 Code Status & VTE Plan Code Status full VTE Prophylaxis Plan VTE Prophylaxis will be ordered: Yes
--- NOTE | 2019-04-01 15:27 | XRay Report ---
XR foot LT 2V CLINICAL HISTORY: LLE cellulitis, eval for osseous involvement. COMPARISON: None. DISCUSSION: Generalized degenerative change. Heel spur. Diffuse soft tissue edema. Degenerative change interphalangeal joint fifth toe. Well-defined lytic or blastic process is not appreciated. IMPRESSION: 1. Generalized degenerative change and soft tissue edema. 2. No evidence for bony destructive process. The above report was generated using voice recognition software. It may contain grammatical, syntax or spelling errors. Electronically signed by: Paulo Souza M.D. 04/01/2019 3:26 PM
--- NOTE | 2019-04-01 15:28 | XRay Report ---
XR tibia fibula LT 2V CLINICAL HISTORY: LLE cellulitis, eval for osseous involvement. COMPARISON: None. DISCUSSION: The bones and joint spaces appear intact. There is no evidence of fracture, dislocation o r bony disease. Considerable soft tissue edematous change. No evidence for a lytic or blastic bony de structive process. IMPRESSION: Generalized soft tissue edema. No acute bony abnormality. The above report was generated using voice recognition software. It may contain grammatical, syntax or spelling errors. Electronically signed by: Paulo Souza M.D. 04/01/2019 3:27 PM
[2019-04-01] MEDS ORDERED: CARBOHYDRATES FOR HYPOGLYCEMIA PO PRN (16:17)
[2019-04-01] MEDS ORDERED: GLUCOSE 10 TABS/TUBE PO PRN (16:17)
[2019-04-01] MEDS ORDERED: DEXTROSE 50% 50 ML SYRINGE IV PRN (16:17)
[2019-04-01] MEDS ORDERED: ONDANSETRON INJ 2 MG/ML 2 ML VIAL IV PRN (16:17)
[2019-04-01] MEDS ORDERED: GLUCOSE 40% GEL 15 GM TUBE PO PRN (16:17)
[2019-04-01] MEDS ORDERED: GLUCAGON FOR INJ 1 MG VIAL SQ PRN (16:17)
--- NOTE | 2019-04-01 17:03 | Pharmacy Report ---
Pharmacy Abx Initial Consult - Date of Service April 01, 2019 - Pharmacy Dosing Scope Date of Consult: 04/01/19 Consultation requested by: Dr. BROWN Pharmacy is consulted to initiate VANCOMYCIN AND ZOSYN IV dosing therapy, order appropriate labs and adjust drug dose/frequency. - Subjective The patient is a 48 year old F admitted on 04/01/19 15:06 WITH CELLULITIS - Objective Height: 5 ft 5 in Weight: 159.5 kg Vital Signs (Past 12hrs): Vital Signs Temp Pulse Pulse Resp BP BP Pulse Ox 04/01/19 16:01 94 H 22 111/61 96 04/01/19 15:22 80 24 116/55 L 96 04/01/19 14:40 76 18 93 04/01/19 14:31 77 16 95 04/01/19 14:30 76 17 118/74 96 04/01/19 14:20 82 24 97 04/01/19 14:10 74 16 95 04/01/19 14:01 83 18 98 04/01/19 14:00 83 20 122/64 97 04/01/19 13:50 78 18 96 04/01/19 13:41 78 18 97 04/01/19 13:38 80 23 116/69 96 04/01/19 13:29 96 04/01/19 12:22 36.6 C 88 20 158/87 H 96 Lab Results (24hrs): Laboratory Tests (24 Hours) 04/01/19 04/01/19 13:11 13:11 WBC 10.87 H Neut # (Auto) 7.71 H Creatinine 0.79 Est Cr Clr Drug Dosing 131.8 Micro Results: 04/01/19 13:11 Aerobic Blood Culture - Pending Blood Anaerobic Blood Culture - Pending - Risk Factors for Resistance * 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; ALSO GREW ENTEROBACTER, CITROBACTER, AND PSEUDOMONAS ALL RELATIVELY SENSITIVE * Antimicrobial use within the last 90 days (AMPICILLIN AND BACTRIM) - Assessment & Plan Assessment 48 year old F ADMITTED WITH CELLULITIS Plan VANCOMYCIN/ZOSYN for treatment of CELLULITIS Vancomycin IV * Estimated PK Parameters: Vd 0.6 L/kg, Kumar 0.874 hr-1, t1/2 8.9 hr * Loading dose: 2750 mg (20 mg/kg) * Maintenance dose: 2000 mg IV (13 mg/kg) every 12 hours * Goal trough level for CELLULITIS H/O MRSA : 15 to 20 mcg/mL * Trough level ordered for 04/02/19 ( PRIOR TO STEADY STATE DUE TO CONCERN WITH ACCUMULATION) * A less than traditional dose and extended dosing interval have been selected due to likelihood of drug accumulation in obese patient. Patient's BMI is greater than 50 so therefore a lower mg/kg dose is necessary PLUS extended interval outwards. Early trough to establish accumulation is not happening. Piperacillin/tazobactam - CHANGED TO CEFEPIME PER DISCUSSION WITH DR BROWN DUE TO RISK OF JHOAN WITH ZOSYN AND VANCOMYCIN IN [facility] INDIVID[facility] Pharmacy will continue to follow and will adjust dose/frequency as necessary. Thank you.
[2019-04-01] MEDS ORDERED: ALBUT/IPRATROP 3MG/0.5MG NEB 3 ML VIAL NEB PRN (17:28)
[2019-04-01] MEDS ORDERED: NICOTINE 21 MG/24 HR TDSY TD ONE (17:30)
[2019-04-01] MEDS ORDERED: PIPERACILLIN/TAZOBACTAM 4.5 GM in DEXTROSE 5% 100 ML IV SCH (18:00)
[2019-04-01] MEDS: INSULIN ASPART 100 UNITS/ML 3 ML PEN SC SCH ×2 (18:27→21:18)
[2019-04-01] MEDS: CEFEPIME 2,000 MG in SYRINGE 7.5 ML IV SCH (19:12)
--- NOTE | 2019-04-01 20:38 | Ultrasound Report ---
BILATERAL LOWER EXTREMITY VENOUS DOPPLER HISTORY: Lower extremity large leg circumference, swelling, erythema COMPARISON STUDY: Left lower extremity venous Doppler 05/05/2017. FINDINGS: There is normal compressibility, flow, and augmentation within the visualized bilateral low er extremity deep venous systems. Of note, the distal bilateral superficial femoral veins were not we ll visualized. The left calf veins are not visualized due to the patient's bandages. IMPRESSION: No DVT within the visualized right or left lower extremity as described above. Electronically signed by: Kwan kSinner M.D. 04/01/2019 8:37 PM
[2019-04-01] MEDS: METOPROLOL TARTRATE 25 MG TAB PO SCH (21:18)
[2019-04-01] MEDS: INSULIN GLARGINE SOLOSTAR 100 UNITS/ML 3 ML PEN SC SCH (21:19)
--- NOTE | 2019-04-01 22:15 | Emergency Department Note ---
Entered by Benji Braswell acting as a scribe for Alonso Snyder MD History of Present Illness General Chief complaint: Infection, Wound Stated complaint: LEFT LEG INFECTION Time Seen by Provider: 04/01/19 12:57 Source: patient Mode of arrival: ambulatory Limitations: no limitations History of Present Illness Provider complaint: LLE cellulitis Onset (ago): week(s) Location: lower extremity Radiation: non-radiation Severity: moderate Pain Consistency: + constant Maximum Pain Intensity: 7 Current Pain Intensity: 2 Quality: + aching Relieved By: + none Exacerbated By: + none Associated symptoms: + denies other symptoms Treatments prior to arrival: other (Antibiotics, wound care) The patient is a pleasant 48-year-old woman with a past medical history of peripheral vascular disease, COPD, and diabetes with a history of Pseudomonas infection who presents emergency department after being referred by the wound clinic for worsening left lower extremity cellulitis in the setting of being treated outpatient with Cipro. Patient denies any fevers, chest pain, shortness of breath, nausea, vomiting, diarrhea. Home Medications Home Medications Medication Instructions Recorded Confirmed Type aspirin 81 mg tablet,delayed 81 mg PO QAM 07/30/18 04/01/19 History release atorvastatin 40 mg tablet 40 mg PO QAM 07/30/18 04/01/19 History clopidogrel 75 mg tablet 75 mg PO QAM 07/30/18 04/01/19 History metoprolol tartrate 25 mg tablet 12.5 mg PO BID tab 07/30/18 04/01/19 History acetaminophen [Tylenol Extra 500 mg PO Q6H PRN 12/12/18 04/01/19 History Strength] fluoxetine 40 mg PO QAM 12/12/18 04/01/19 History mometasone-formoterol [Dulera] 2 puff INHALATION Q12H PRN 12/12/18 04/01/19 His tory glipizide 5 mg tablet 5 mg PO BID 01/23/19 04/01/19 History furosemide 40 mg tablet 40 mg PO QAM tab 01/28/19 04/01/19 History Allergies Allergy/AdvReac Type Severity Reaction Status Date / Time No Known Drug Allergies Allergy Verified 04/01/19 14:30 Past Med/Surg History Medical History COPD (chronic obstructive pulmonary disease) (Chronic) Crohns disease (Chronic) Depression (Chronic) Diabetes mellitus, type 2 (Chronic) NIDDM Dyslipidemia (Chronic) HTN (hypertension) (Chronic) Bladder cancer (Resolved) H/O Myocardial Infarction (Resolved) 03/2017 Surgical History History of bunionectomy (Resolved) History of cardiac cath (Resolved) 03/2017 - [facility] - X 1 STENT - FOLLOWS W/ DR. SEGUNDO History of colonoscopy (Resolved) History of esophagogastroduodenoscopy (EGD) (Resolved) History of heart artery stent (Resolved) x 1 History of loop electrical excision procedure (LEEP) (Resolved) History of tooth extraction (Resolved) S/P dilation and curettage (Resolved) S/P tubal ligation (Resolved) Status post endovenous radiofrequency ablation (RFA) of saphenous vein (Resolved) left great saphenous vein Status post surgical removal and fulguration of bladder neoplasm (Resolved) Family History Grandfather (Maternal) Family history of diabetes mellitus Mother Family history of diabetes mellitus Social History Preferred Language: [place] Communication Ability: Effective Visual Impairment: No Limitations Hearing Ability: Normal Kindergartner Required: No Beliefs That Will Affect Care: None marital status: Single Current Living Situation: Alone Current Living Situation Comment: SON LIVESE WITH PT current occupational status: unemployed Other Information That Helps Us Care for You: No Feels Safe at Home: Yes Safety Concerns: Feels Safe At This Time Smoking Status: Current every day smoker Tobacco Type: cigarettes ; packs per day: 0.5 ; Cigarettes Per Day: 20 ; Second Hand Exposure: No ; Tobacco Cessation Education Requested by Patient: No Hx Alcohol Use: No Hx Substance Use: No Childhood Exposure to Second-Hand Smoke: Yes Review of Systems See HPI for pertinent positives & negatives. and A total of 10 systems reviewed and were otherwise negative Physical Exam Vital Signs Vital Signs - 24 hr 04/01/19 12:22 04/01/19 13:29 04/01/19 13:38 Temperature 36.6 C Temperature Source Oral Sepsis Recent Fever Within 48 Hours No Sepsis New/Unexplained Change in Mental Status No Sepsis Action Taken by Nursing No Action Required Pulse Rate 88 80 Pulse Rate from SpO2 Sensor 80 Respiratory Rate 20 23 Blood Pressure 158/87 H 116/69 Blood Pressure Mean 110 84 Pulse Oximetry 96 96 96 Oxygen Delivery Method Room Air Room Air 04/01/19 13:41 04/01/19 13:50 04/01/19 14:00 Temperature Temperature Source Sepsis Recent Fever Within 48 Hours Sepsis New/Unexplained Change in Mental Status Sepsis Action Taken by Nursing Pulse Rate 78 78 83 Pulse Rate from SpO2 Sensor 78 78 82 Respiratory Rate 18 18 20 Blood Pressure 122/64 Blood Pressure Mean 83 Pulse Oximetry 97 96 97 Oxygen Delivery Method 04/01/19 14:01 04/01/19 14:10 04/01/19 14:20 Temperature Temperature Source Sepsis Recent Fever Within 48 Hours Sepsis New/Unexplained Change in Mental Status Sepsis Action Taken by Nursing Pulse Rate 83 74 82 Pulse Rate from SpO2 Sensor 81 74 83 Respiratory Rate 18 16 24 Blood Pressure Blood Pressure Mean Pulse Oximetry 98 95 97 Oxygen Delivery Method 04/01/19 14:30 04/01/19 14:31 04/01/19 14:40 Temperature Temperature Source Sepsis Recent Fever Within 48 Hours Sepsis New/Unexplained Change in Mental Status Sepsis Action Taken by Nursing Pulse Rate 76 77 76 Pulse Rate from SpO2 Sensor 77 78 75 Respiratory Rate 17 16 18 Blood Pressure 118/74 Blood Pressure Mean 88 Pulse Oximetry 96 95 93 Oxygen Delivery Method GENERAL: Awake, alert, well-appearing, in no distress. BMI of 58.5 kg/m^3. HENT: Normocephalic, atraumatic. Oropharynx unremarkable. EYES: Normal conjunctiva. Sclera non-icteric. NECK: Supple. No nuchal rigidity. FROM. No JVD. RESPIRATORY: CTA bilaterally. CARDIAC: Regular rate, normal rhythm. Extremities warm and well perfused. Pulses equal. ABDOMEN: Soft, non-distended. No tenderness to palpation. No rebound or guarding. No masses. RECTAL: Deferred. MUSCULOSKELETAL: Chest examination reveals no tenderness. The back is symmetrical on inspection without obvious abnormality. There is no CVA tenderness to palpation. No joint edema. LOWER EXTREMITIES: 3+ bilateral pedal edema with redness, warmth, and tenderness to the left lower extremity. NEURO: Normal sensorium. No sensory or motor deficits noted. SKIN: No jaundice noted. Course 1432: I reviewed the patient's case with Dr. Rodriguez, [facility] Hospitalist. The patient will be evaluated for further management. Administered Medications Vancomycin HCl 2,000 mg/ (Sodium Chloride) 540 mls @ 200 mls/hr IV Q12H CAMERON Stop: 04/12/19 01:59 Last Admin: 04/02/19 02:15 Dose: 200 mls/hr Documented by: [id number] Cefepime HCl 2,000 mg/ Syringe 20 mls @ 5 mls/min IV Q8H CAMERON Stop: 04/11/19 17:59 Last Admin: 04/02/19 02:15 Dose: 5 mls/min Documented by: [id number] Admin: 04/01/19 19:12 Dose: 5 mls/min Documented by: [id number] Insulin Aspart (Novolog Flexpen) 0 units SC ACHS CAMERON Stop: 05/01/19 16:29 Last Admin: 04/01/19 21:18 Dose: Not Given Documented by: [id number] Cosigned by: [id number] Admin: 04/01/19 18:27 Dose: 11 units Documented by: [id number] Cosigned by: [id number] Insulin Glargine (Lantus Solostar Pen) 25 units SC BID CAMERON Stop: 05/01/19 20:59 Last Admin: 04/01/19 21:19 Dose: 25 units Documented by: [id number] Cosigned by: [id number] Metoprolol Tartrate (Lopressor) 12.5 mg PO BID CAMERON Stop: 05/01/19 20:59 Last Admin: 04/01/19 21:18 Dose: 12.5 mg Documented by: [id number] Miscellaneous (Remove Nicoderm Patch) 1 ea N/A HS CAMERON Stop: 05/01/19 20:59 Last Admin: 04/01/19 22:04 Dose: 1 ea Documented by: [id number] Miscellaneous (Order Awaiting Action) 1 ea N/A QS CAMERON Stop: 05/02/19 00:00 Last Admin: 04/01/19 23:23 Dose: Not Given Documented by: [id number] Discontinued Medications Piperacillin Sod/Tazobactam Sod (Zosyn) 4.5 gm in 120 mls @ 240 mls/hr IV NOW ONE Stop: 04/01/19 14:52 Last Infusion: 04/01/19 15:05 Dose: 0 mls/hr Documented by: [id number] Admin: 04/01/19 14:32 Dose: 240 mls/hr Documented by: [id number] Vancomycin HCl 2,750 mg/ (Sodium Chloride) 555 mls @ 200 mls/hr IV NOW ONE Stop: 04/01/19 17:12 Last Infusion: 04/01/19 17:31 Dose: 0 mls/hr Documented by: [id number] Admin: 04/01/19 14:44 Dose: 200 mls/hr Documented by: [id number] Nicotine (Nicoderm Cq) 21 mg TD ONE ONE Stop: 04/01/19 17:31 Last Admin: 04/01/19 19:13 Dose: 21 mg Documented by: [id number] Medical Decision Making Differential Diagnosis Differential diagnosis includes etiologies such as cellulitis, abscess, MRSA infection, DVT, necrotizing fasciitis, dermatitis, drug eruption, as well as others were entertained. Medical Records Attestation: I reviewed the patient's medical records. Home Medications Current Medication List: was personally reviewed by me Laboratory Data Attestation: I reviewed the patient's lab results. Result diagrams: 04/01/19 13:11 04/01/19 13:11 Lab Results 04/01/19 04/01/19 04/01/19 Range/Units 13:11 13:11 13:11 WBC 10.87 H (4.8-10.8) K/uL RBC 5.16 (4.2-5.4) M/uL Hgb 12.6 (12.0-16.0) g/dL Hct 40.0 (37-47) % MCV 77.5 L (80-100) fL MCH 24.4 L (25-34) pg MCHC 31.5 L (32-36) g/dL RDW Std Deviation 58.6 H (36.4-46.3) fL RDW Coeff of Juanito 20.8 H (11.5-14.5) % Plt Count 317 (130-400) K/uL MPV 8.7 (7.4-10.4) fL Immature Gran % (Auto) 0.4 % Neut % (Auto) 70.9 % Lymph % (Auto) 20.1 % [place] % (Auto) 6.4 % Eos % (Auto) 2.0 % Baso % (Auto) 0.2 % Immature Gran # (Auto) 0.04 H (0.00-0.02) K/uL Neut # (Auto) 7.71 H (1.4-6.5) K/uL Lymph # (Auto) 2.18 (1.2-3.4) K/uL [place] # (Auto) 0.70 H (0.11-0.59) K/uL Eos # (Auto) 0.22 (0-0.5) K/uL Baso # (Auto) 0.02 (0-0.2) K/uL Anisocytosis Present Sodium 140 (136-145) mmol/L Potassium 3.8 (3.5-5.1) mmol/L Chloride 104 (98-107) mmol/L Carbon Dioxide 30 (21-32) mmol/L Anion Gap 6.0 (3-11) BUN 9 (7-18) mg/dl Creatinine 0.79 (0.6-1.2) mg/dl Est Cr Clr Drug Dosing 131.8 ml/min Est GFR ( Amer) 101.2 Est GFR (Non-Af Amer) 87.3 BUN/Creatinine Ratio 11.5 (10-20) Glucose 104 H (70-99) mg/dl Lactate 1.8 (0.4-2.0) mmol/L Calcium 8.8 (8.5-10.1) mg/dl Total Bilirubin 0.4 (0.2-1) mg/dl AST 10 L (15-37) U/L ALT 22 (12-78) U/L Alkaline Phosphatase 132 H (45-117) U/L Total Protein 7.5 (6.4-8.2) gm/dl Albumin 2.8 L (3.4-5.0) gm/dl Globulin 4.7 H (2.5-4.0) gm/dl Albumin/Globulin Ratio 0.6 L (0.9-2) Imaging Data Radiologist's Impression: Radiology results as stated below per my review and the radiologist's interpretation: XR foot LT 2V CLINICAL HISTORY: LLE cellulitis, eval for osseous involvement. COMPARISON: None. DISCUSSION: Generalized degenerative change. Heel spur. Diffuse soft tissue edema. Degenerative change interphalangeal joint fifth toe. Well-defined lytic or blastic process is not appreciated. IMPRESSION: 1. Generalized degenerative change and soft tissue edema. 2. No evidence for bony destructive process. The above report was generated using voice recognition software. It may contain grammatical, syntax or spelling errors. Electronically signed by: Paulo Souza M.D. 04/01/2019 3:26 PM XR tibia fibula LT 2V CLINICAL HISTORY: LLE cellulitis, eval for osseous involvement. COMPARISON: None. DISCUSSION: The bones and joint spaces appear intact. There is no evidence of fracture, dislocation or bony disease. Considerable soft tissue edematous change. No evidence for a lytic or blastic bony destructive process. IMPRESSION: Generalized soft tissue edema. No acute bony abnormality. The above report was generated using voice recognition software. It may contain grammatical, syntax or spelling errors. Electronically signed by: Paulo Souza M.D. 04/01/2019 3:27 PM Blood Pressure Blood Pressure Findings: Elevated blood pressure Blood Pressure Disposition: further management by hospitalist SARI Pickens The patient is a pleasant 48-year-old woman with a past medical history of peripheral vascular disease, COPD, and diabetes, history of Pseudomonas infection who presents emergency department after being referred by the wound clinic for worsening left lower extremity cellulitis in the setting of being treated outpatient with Cipro per hpi. On arrival patient is in no acute distress, afebrile stable vital signs. On exam patient has erythema warmth and tenderness of the left lower leg with 3+ edema and scant superficial ulceration of the left lateral lower leg. There is no crepitus. Plain films negative for osseous involvement. WBC 10.8, nonspecific. H/H and platelets within normal limits. Chemistry without acidosis. Lactate within normal limits. Electrolytes and LFTs unremarkable. Given the patient's failed outpatient treatment in the setting of her multiple comorbidities and risk of severe infection reasonable to admit the patient for further management. Patient is agreeable with admission. Blood cultures drawn. Ordered for Zosyn and Vancomycine for now. Case was discussed with Dr. Arelis Rodriguez, [facility] hospitalist, who will evaluate the patient for admission. Impression & Plan Cellulitis of left lower leg, PVD (peripheral vascular disease), Chronic venous insufficiency, Diabetes mellitus, Failure of outpatient treatment Discharge Plan Visit Data *Final* Discharge Date/Time: 04/01/19 16:01 Chief Complaint: Infection, Wound Stated Complaint: LEFT LEG INFECTION ED Provider: Alonso Snyder Discharge Problem: Cellulitis of left lower leg, PVD (peripheral vascular disease), Chronic venous insufficiency, Diabetes mellitus, Failure of outpatient treatment Patient Disposition: Admitted As Inpatient Discharge Instructions Interventions: ED Discharge Assessment Last Done: 04/01/19 16:01 The thaliaibe's documentation has been prepared under my direction and personally reviewed by me in its entirety. I confirm that the note above accurately reflects all work, treatment, procedures, and medical decision making performed by me.
[2019-04-01] MEDS: DULERA - ORDER AWAITING ACTION SCH (23:23)
[2019-04-02] MEDS ORDERED: VANCOMYCIN HCL 2,000 MG in SODIUM CHLORIDE 0.9% 500 ML IV SCH (02:00)
[2019-04-02] MEDS: CEFEPIME 2,000 MG in SYRINGE 7.5 ML IV SCH ×3 (02:15→18:11)
[2019-04-02 06:15] LABS: Hematocrit (blood only) 39.4 % (37-47); Hemoglobin 11.8 g/dL (12.0-16.0); Mean Corpuscular Hemoglobin 23.6 pg (25-34); Mean Corpuscular Hgb Conc 29.9 g/dL (32-36); Mean Corpuscular Volume 78.8 fL (80-100); Mean Platelet Volume 9.7 fL (7.4-10.4); Platelet Count 305 K/uL (130-400); RDW Coefficient of Variation 20.9 % (11.5-14.5); RDW Standard Deviation 59.8 fL (36.4-46.3); White Blood Count 9.98 K/uL (4.8-10.8)
[2019-04-02 06:21] LABS: Estimated Average Glucose 148 mg/dl; Hemoglobin A1C 6.8 % (4.5-5.6)
[2019-04-02 06:49] LABS: BUN Creatinine Ratio 15.3 (10-20); Calcium 8.5 mg/dl (8.5-10.1); Est GFR (Non-African American) 91.5; Potassium 4.2 mmol/L (3.5-5.1)
[2019-04-02] MEDS: ACETAMINOPHEN 325 MG TAB PO PRN ×2 (07:42→18:26)
[2019-04-02] MEDS ORDERED: ATORVASTATIN 40 MG TAB PO SCH (09:00)
[2019-04-02] MEDS: METOPROLOL TARTRATE 25 MG TAB PO SCH ×2 (09:20→21:08)
[2019-04-02] MEDS: FUROSEMIDE 40 MG TAB PO SCH (09:21)
[2019-04-02] MEDS: FLUOXETINE HCL 20 MG CAP PO SCH (09:22)
[2019-04-02] MEDS: INSULIN ASPART 100 UNITS/ML 3 ML PEN SC SCH ×4 (09:22→20:36)
[2019-04-02] MEDS: CLOPIDOGREL BISULFATE 75 MG TAB PO SCH (09:22)
[2019-04-02] MEDS: ASPIRIN 81 MG ECTAB PO SCH (09:22)
[2019-04-02] MEDS: INSULIN GLARGINE SOLOSTAR 100 UNITS/ML 3 ML PEN SC SCH ×2 (09:23→20:35)
[2019-04-02] MEDS: DULERA - ORDER AWAITING ACTION SCH ×3 (09:24→23:46)
[2019-04-02] MEDS: ENOXAPARIN INJ 40 MG/0.4 ML SYR SQ SCH ×3 (09:25→20:44)
[2019-04-02] MEDS: NICOTINE 21 MG/24 HR TDSY TD SCH (09:25)
--- NOTE | 2019-04-02 09:46 | Infectious Disease Consult ---
Date of Consultation April 02, 2019 Assessment & Plan (1) Cellulitis of left lower le-year-old morbidly obese female with chronic venous stasis disease and lymphedema with chronic venous stasis ulceration now with secondary infections with cultures positive for MRSA, Pseudomonas, and more recently Enterobacter. Given patient's morbid obesity, vancomycin therapy may be problematic in dosing and achieving adequate tissue levels. Will change to vancomycin to IV daptomycin for now, and continue on cefepime. Await further culture results and wound care consultation. Will follow. (2) Venous ulcer of left leg: (3) MRSA (methicillin resistant Staphylococcus aureus) infection: (4) Pseudomonas aeruginosa infection: History of Present Illness Reason for Consultation: Lymphedema with ? Skin infection Attending Physician: Melecio Elder MD History of Present Illness 48-year-old female with history of diabetes mellitus, COPD, peripheral vascular disease, chronic venous stasis disease and lymphedema, who is been followed at the wound care center for poorly healing venous stasis ulceration. She recently was found to have positive culture for Pseudomonas and received ciprofloxacin, but was seen yesterday with evidence of worsening infection with increasing erythema and swelling of the leg, and was referred for admission for further management. She has been started on IV vancomycin and cefepime. Has had positive cultures for MRSA as well, and more recent culture also grew Enterobacter. She has not had any fever, but complaining of chills. Blood cultures have been drawn and are pending, wound culture also pending. Pain relatively minimal in left leg at present time. No other new systemic complaints. Allergies Allergy/AdvReac Type Severity Reaction Status Date / Time No Known Drug Allergies Allergy Verified 04/01/19 14:30 Home Medications Home Medications Medication Instructions Recorded Confirmed Type aspirin 81 mg tablet,delayed 81 mg PO QAM 07/30/18 04/01/19 History release atorvastatin 40 mg tablet 40 mg PO QAM 07/30/18 04/01/19 History clopidogrel 75 mg tablet 75 mg PO QAM 07/30/18 04/01/19 History metoprolol tartrate 25 mg tablet 12.5 mg PO BID tab 07/30/18 04/01/19 History acetaminophen [Tylenol Extra 500 mg PO Q6H PRN 12/12/18 04/01/19 History Strength] fluoxetine 40 mg PO QAM 12/12/18 04/01/19 History mometasone-formoterol [Dulera] 2 puff INHALATION Q12H PRN 12/12/18 04/01/19 History glipizide 5 mg tablet 5 mg PO BID 01/23/19 04/01/19 History furosemide 40 mg tablet 40 mg PO QAM tab 01/28/19 04/01/19 History Patient History Medical History COPD (chronic obstructive pulmonary disease) (Chronic) Crohns disease (Chronic) Depression (Chronic) Diabetes mellitus, type 2 (Chronic) NIDDM Dyslipidemia (Chronic) HTN (hypertension) (Chronic) Bladder cancer (Resolved) H/O Myocardial Infarction (Resolved) 03/2017 Surgical History History of bunionectomy (Resolved) History of cardiac cath (Resolved) 03/2017 - [place] - [facility] - X 1 STENT - FOLLOWS W/ DR. SEGUNDO History of colonoscopy (Resolved) History of esophagogastroduodenoscopy (EGD) (Resolved) History of heart artery stent (Resolved) x 1 History of loop electrical excision procedure (LEEP) (Resolved) History of tooth extraction (Resolved) S/P dilation and curettage (Resolved) S/P tubal ligation (Resolved) Status post endovenous radiofrequency ablation (RFA) of saphenous vein (Resolved) left great saphenous vein Status post surgical removal and fulguration of bladder neoplasm (Resolved) Family History Grandfather (Maternal) Family history of diabetes mellitus Mother Family history of diabetes mellitus Social History Preferred Language: Tajik Communication Ability: Effective Visual Impairment: No Limitations Hearing Ability: Normal Collection Support Specialist Required: No Beliefs That Will Affect Care: None marital status: Single Current Living Situation: Alone Current Living Situation Comment: SON LIVESE WITH PT current occupational status: unemployed Other Information That Helps Us Care for You: No Feels Safe at Home: Yes Safety Concerns: Feels Safe At This Time Smoking Status: Current every day smoker Tobacco Type: cigarettes ; packs per day: 0.5 ; Cigarettes Per Day: 20 ; Second Hand Exposure: No ; Tobacco Cessation Education Requested by Patient: No Hx Alcohol Use: No Hx Substance Use: No Childhood Exposure to Second-Hand Smoke: Yes Review of Systems Review of Systems: All systems reviewed & are unremarkable except as noted in HPI & below Physical Exam Constitutional: WD/WN, vitals as above + morbidly obese and comfortable; no acute distress Eyes: PERRL, conjunctivae normal, anicteric sclerae ENMT: external ear and nose normal, oropharynx normal Neck: trachea midline, no thyromegaly neck nontender Respiratory: normal respiratory effort, lungs clear to auscultation normal percussion; does not use accessory muscles Cardiovascular: Rate/Rhythm: regular rate and regular rhythm Heart Sounds: normal S1 and normal S2; no gallop, no murmur and no cardiac rub Vessels: normal peripheral pulses; no JVD Extremities: + edema (Lower extremity edema) Gastrointestinal (Abdomen): normal bowel sounds, soft, nontender, no hepatosplenomegaly Musculoskeletal: no cyanosis or clubbing, extremities motor strength 5/5 Spine: thoracic spine normal to inspection and lumbar spine normal to inspection; no cervical spinal tenderness Skin: no rashes, warm and dry normal turgor and + wound (.Left medial and posterior lower leg superficial ulceration with surroundin) Venous stasis dermatitis Neurologic: patellar DTR's 2+ bilat, sensation intact no focal motor deficits Psychiatric: A+Ox3, euthymic affect Orientation: cooperative Lymphatic: no cervical or axillary lymphadenopathy no inguinal lymphadenopathy Results & Data Vital Signs (Past 12 Hours) Vital Signs Temp Pulse Resp BP Pulse Ox 04/02/19 07:04 36.5 C 16 124/79 94 04/01/19 22:59 37.1 C 73 16 109/74 93 Laboratory Results Short CBC 04/01/19 04/02/19 Range/Units 13:11 05:18 WBC 10.87 H 9.98 (4.8-10.8) K/uL Hgb 12.6 11.8 L (12.0-16.0) g/dL Hct 40.0 39.4 (37-47) % Plt Count 317 305 (130-400) K/uL BMP 04/01/19 04/02/19 13:11 05:18 Sodium 140 139 Potassium 3.8 4.2 Chloride 104 107 Carbon Dioxide 30 27 BUN 9 12 Creatinine 0.79 0.76 Glucose 104 H 102 H Calcium 8.8 8.5 Liver Function 04/01/19 Range/Units 13:11 Total Bilirubin 0.4 (0.2-1) mg/dl AST 10 L (15-37) U/L ALT 22 (12-78) U/L Alkaline Phosphatase 132 H (45-117) U/L Albumin 2.8 L (3.4-5.0) gm/dl Diagnostic Findings Microbiology 04/01/19 17:38 Leg,Left Gram Stain - Final BILATERAL LOWER EXTREMITY VENOUS DOPPLER HISTORY: Lower extremity large leg circumference, swelling, erythema COMPARISON STUDY: Left lower extremity venous Doppler 05/05/2017. FINDINGS: There is normal compressibility, flow, and augmentation within the visualized bilateral lower extremity deep venous systems. Of note, the distal bilateral superficial femoral veins were not well visualized. The left calf veins are not visualized due to the patient's bandages. IMPRESSION: No DVT within the visualized right or left lower extremity as described above. Electronically signed by: Kwan Skinner M.D. 04/01/2019 8:37 PM Dictated: 04/01/192035 Transcribed: 04/01/192035 PG Care Time/CCT Total # of Minutes Spent Total Time Spent with Patient: Total time spent is greater than 50% in coordination of care (as documented) at patient's floor/unit and/or counseling patient:
[2019-04-02] MEDS ORDERED: DAPTOmycin 500 MG VIAL IV SCH (10:00)
[2019-04-02] MEDS ORDERED: VANCOMYCIN TROUGH ONE (13:30)
--- NOTE | 2019-04-02 15:19 | Hospitalist Progress Note ---
Date of Service April 02, 2019 Assessment & Plan (1) Cellulitis of left lower leg: Left lower extremity cellulitis In setting of chronic venous stasis, lymphedema Venous Doppler:No DVT within the visualized right or left lower extremity as described above. X ray:Generalized soft tissue edema. No acute bony abnormality. H/O wound cultures positive for MRSA, Enterobacter, Pseudomonas Blood cultures pending Wound culture: Staph aureus Continue daptomycin, cefepime Day #2 Appreciate ID input Continue wound care (2) Venous ulcer of left leg: Management as above Continue Lasix for chronic venous insufficiency (3) DM II (diabetes mellitus, type II), controlled: HbA1c 6.8 Hold home p.o. meds Continue ISS, glargine while hospitalized Monitor blood glucose levels (4) COPD (chronic obstructive pulmonary disease): No signs of exacerbation Ongoing tobacco use Continue home inhalers Counseled to quit smoking (5) Smoking: Counseled to quit smoking NicoDerm patch. (6) PVD (peripheral vascular disease): Continue aspirin, Plavix Hold Lipitor while on daptomycin therapy (7) Depression: Continue fluoxetine (8) Obesity: (9) DVT prophylaxis: Lovenox SQ CODE STATUS Full code Disposition Needs compression dressing on day of discharge Subjective Patient is seen and examined at bedside Leg pain is controlled Still has some discharge from wound Denies any chest pain, SOB, dizziness, nausea, abd pain Offers no other complaints Review of Systems Review of Systems: All systems reviewed & are unremarkable except as noted in HPI & below Physical Exam Physical Exam: Physical Exam: Vitals signs as noted above General Appearance:Morbidly Obese, no apparent distress Head: normocephalic, Atraumatic Eyes: normal inspection, EOMI Neck: supple, Trachea midline Respiratory/Chest: Normal breath sounds, CTA Cardiovascular: S1, S2, No murmur Abdomen/GI:Soft, Non tender, Bowel sounds present Extremities/Musculoskelatal:normal inspection, +B/L lymphedema, venous stasis ulceration, Left LE in dressing Neurologic/Psych:AAOX3, grossly no focal neurological deficits Skin: normal color, warm Results & Data Vital Signs (Past 12 Hours) Vital Signs Temp Pulse Resp BP Pulse Ox 04/02/19 14:54 36.5 C 67 20 125/79 95 04/02/19 07:04 36.5 C 16 124/79 94 Laboratory Results Short CBC 04/02/19 Range/Units 05:18 WBC 9.98 (4.8-10.8) K/uL Hgb 11.8 L (12.0-16.0) g/dL Hct 39.4 (37-47) % Plt Count 305 (130-400) K/uL [facility] [place] 04/02/19 05:18 Sodium 139 Potassium 4.2 Chloride 107 Carbon Dioxide 27 BUN 12 Creatinine 0.76 Glucose 102 H Calcium 8.5
[2019-04-02] MEDS: DAPTOmycin 600 MG in SYRINGE 0 ML IV SCH (15:29)
[2019-04-03] MEDS: CEFEPIME 2,000 MG in SYRINGE 7.5 ML IV SCH ×3 (01:30→18:24)
[2019-04-03 05:03] LABS: Hematocrit (blood only) 38.7 % (37-47); Mean Corpuscular Volume 77.4 fL (80-100); Mean Platelet Volume 8.8 fL (7.4-10.4); Platelet Count 290 K/uL (130-400); RDW Coefficient of Variation 20.7 % (11.5-14.5); RDW Standard Deviation 58.8 fL (36.4-46.3); White Blood Count 9.68 K/uL (4.8-10.8)
[2019-04-03 05:20] LABS: BUN Creatinine Ratio 18.4 (10-20); Calcium 8.7 mg/dl (8.5-10.1); Creatinine Clr Calc Pharmacy 133.5 ml/min; Est GFR (African American) 102.7; Est GFR (Non-African American) 88.6; Magnesium 2.1 mg/dl (1.8-2.4)
--- NOTE | 2019-04-03 09:09 | Infectious Disease Progress Nt ---
Date of Service April 03, 2019 Assessment & Plan (1) Cellulitis of left lower le-year-old morbidly obese female with chronic venous stasis disease and lymphedema with chronic venous stasis ulceration now with secondary infections with cultures positive for MRSA, Pseudomonas, and more recently Enterobacter. Appears to be responding to antibiotic therapy. We will continue current therapy, can reduce dose of daptomycin of blood cultures remain negative. Await final cultures to see if needs to continue on cefepime. Will follow. (2) Venous ulcer of left leg: (3) MRSA (methicillin resistant Staphylococcus aureus) infection: (4) Pseudomonas aeruginosa infection: Subjective Patient seen in follow-up for left lower extremity cellulitis in the setting of venous stasis disease and venous stasis ulcer. Leg pain improved this morning, offers no new complaints. Remains afebrile. Cultures growing MRSA so far. Tolerating current antibiotics. Review of Systems Review of Systems: All systems reviewed & are unremarkable except as noted in HPI & below Physical Exam Constitutional: WD/WN, vitals as above + morbidly obese and comfortable; no acute distress Eyes: PERRL, conjunctivae normal, anicteric sclerae ENMT: external ear and nose normal, oropharynx normal Neck: trachea midline, no thyromegaly neck nontender Respiratory: normal respiratory effort, lungs clear to auscultation normal percussion; does not use accessory muscles Cardiovascular: Rate/Rhythm: regular rate and regular rhythm Heart Sounds: normal S1 and normal S2; no gallop, no murmur and no cardiac rub Vessels: normal peripheral pulses; no JVD Extremities: + edema (Lower extremity edema) Gastrointestinal (Abdomen): normal bowel sounds, soft, nontender, no hepatosplenomegaly Musculoskeletal: no cyanosis or clubbing, extremities motor strength 5/5 Spine: thoracic spine normal to inspection and lumbar spine normal to inspection; no cervical spinal tenderness Skin: normal turgor and + wound (Superficial ulceration left leg, erythema surrounding slightly better) Neurologic: patellar DTR's 2+ bilat, sensation intact no focal motor deficits Psychiatric: A+Ox3, euthymic affect Orientation: cooperative Lymphatic: no cervical or axillary lymphadenopathy no inguinal lymphadenopathy Results & Data Vital Signs (Past 12 Hours) Vital Signs Temp Pulse Resp BP Pulse Ox 04/03/19 07:08 36.7 C 69 16 135/79 93 04/02/19 23:46 36.4 C L 65 16 121/76 94 Laboratory Results Short CBC 04/03/19 Range/Units 04:44 WBC 9.68 (4.8-10.8) K/uL Hgb 12.0 (12.0-16.0) g/dL Hct 38.7 (37-47) % Plt Count 290 (130-400) K/uL BMP 04/03/19 04:44 Sodium 138 Potassium 4.0 Chloride 106 Carbon Dioxide 30 BUN 14 Creatinine 0.78 Glucose 103 H Calcium 8.7 Diagnostic Findings Microbiology 04/01/19 17:38 Leg,Left Gram Stain - Final 04/01/19 17:38 Leg,Left Wound Culture - Preliminary Staph aureus MRSA 04/01/19 13:11 Blood Aerobic Blood Culture - Preliminary No growth in Aerobic bottle after 24 hours. 04/01/19 13:11 Blood Anaerobic Blood Culture - Preliminary No growth in Anaerobic bottle after 24 hours. 04/01/19 13:11 Blood Aerobic Blood Culture - Preliminary No growth in Aerobic bottle after 24 hours. 04/01/19 13:11 Blood Anaerobic Blood Culture - Preliminary No growth in Anaerobic bottle after 24 hours. PG Care Time/CCT Total # of Minutes Spent Total Time Spent with Patient: Total time spent is greater than 50% in coordination of care (as documented) at patient's floor/unit and/or counseling patient:
[2019-04-03] MEDS: INSULIN ASPART 100 UNITS/ML 3 ML PEN SC SCH ×4 (09:12→20:54)
[2019-04-03] MEDS: INSULIN GLARGINE SOLOSTAR 100 UNITS/ML 3 ML PEN SC SCH ×2 (09:13→20:54)
[2019-04-03] MEDS: DULERA - ORDER AWAITING ACTION SCH ×3 (09:15→21:08)
[2019-04-03] MEDS: CLOPIDOGREL BISULFATE 75 MG TAB PO SCH (09:26)
[2019-04-03] MEDS: NICOTINE 21 MG/24 HR TDSY TD SCH (09:26)
[2019-04-03] MEDS: METOPROLOL TARTRATE 25 MG TAB PO SCH ×2 (09:26→20:52)
[2019-04-03] MEDS: FUROSEMIDE 40 MG TAB PO SCH (09:27)
[2019-04-03] MEDS: ASPIRIN 81 MG ECTAB PO SCH (09:27)
[2019-04-03] MEDS: ENOXAPARIN INJ 40 MG/0.4 ML SYR SQ SCH ×2 (09:27→20:53)
[2019-04-03] MEDS: FLUOXETINE HCL 20 MG CAP PO SCH (09:27)
[2019-04-03] MEDS ORDERED: BUDESONIDE/FORMOTEROL FUMARATE 160/4.5 60 PUFFS/INHALER INH PRN (15:28)
[2019-04-03] MEDS: DAPTOmycin 600 MG in SYRINGE 0 ML IV SCH (15:48)
--- NOTE | 2019-04-03 17:46 | Hospitalist Progress Note ---
Date of Service April 03, 2019 Assessment & Plan (1) Cellulitis of left lower leg: Left lower extremity cellulitis In setting of chronic venous stasis, lymphedema Venous Doppler:No DVT within the visualized right or left lower extremity as described above. X ray:Generalized soft tissue edema. No acute bony abnormality. H/O wound cultures positive for MRSA, Enterobacter, Pseudomonas Blood cultures: No growth to date Wound culture: MRSA, gram-negative bacilli Continue daptomycin, cefepime Day #3 Appreciate ID input Continue wound care Continue contact precautions (2) Venous ulcer of left leg: Management as above Continue Lasix for chronic venous insufficiency (3) DM II (diabetes mellitus, type II), controlled: HbA1c 6.8 Hold home p.o. meds Continue ISS, glargine while hospitalized Monitor blood glucose levels (4) COPD (chronic obstructive pulmonary disease): No signs of exacerbation Ongoing tobacco use Continue home inhalers Counseled to quit smoking (5) Smoking: Counseled to quit smoking NicoDerm patch. (6) PVD (peripheral vascular disease): Continue aspirin, Plavix Hold Lipitor while on daptomycin therapy (7) Depression: Continue fluoxetine (8) Obesity: (9) DVT prophylaxis: Lovenox SQ CODE STATUS Full code Disposition Needs compression dressing on day of discharge Subjective Patient is seen and examined at bedside Leg pain resolved No new complaints Eager to get discharged No discharge from leg wound today Denies any chest pain, SOB, dizziness, nausea, abd pain Review of Systems Review of Systems: All systems reviewed & are unremarkable except as noted in HPI & below Physical Exam Physical Exam: Physical Exam: Vitals signs as noted above General Appearance:Morbidly Obese, no apparent distress Head: normocephalic, Atraumatic Eyes: normal inspection, EOMI Neck: supple, Trachea midline Respiratory/Chest: Normal breath sounds, CTA Cardiovascular: S1, S2, No murmur Abdomen/GI:Soft, Non tender, Bowel sounds present Extremities/Musculoskelatal:normal inspection, +B/L lymphedema, venous stasis ulceration, Left LE in dressing Neurologic/Psych:AAOX3, grossly no focal neurological deficits Skin: normal color, warm Results & Data Vital Signs (Past 12 Hours) Vital Signs Temp Pulse Resp BP Pulse Ox 04/03/19 14:57 36.7 C 71 16 145/90 H 94 04/03/19 07:08 36.7 C 69 16 135/79 93 Laboratory Results Short CBC 04/03/19 Range/Units 04:44 WBC 9.68 (4.8-10.8) K/uL Hgb 12.0 (12.0-16.0) g/dL Hct 38.7 (37-47) % Plt Count 290 (130-400) K/uL BMP 04/03/19 04:44 Sodium 138 Potassium 4.0 Chloride 106 Carbon Dioxide 30 BUN 14 Creatinine 0.78 Glucose 103 H Calcium 8.7
[2019-04-04] MEDS: CEFEPIME 2,000 MG in SYRINGE 7.5 ML IV SCH ×2 (01:35→10:24)
[2019-04-04 06:09] LABS: BUN Creatinine Ratio 18.7 (10-20); Calcium 8.7 mg/dl (8.5-10.1); Creatinine Clr Calc Pharmacy 125.5 ml/min; Est GFR (African American) 95.3; Est GFR (Non-African American) 82.2; Potassium 4.2 mmol/L (3.5-5.1)
[2019-04-04] MEDS: DULERA - ORDER AWAITING ACTION SCH (09:13)
[2019-04-04] MEDS: INSULIN ASPART 100 UNITS/ML 3 ML PEN SC SCH ×3 (09:14→17:33)
[2019-04-04] MEDS: FUROSEMIDE 40 MG TAB PO SCH (09:16)
[2019-04-04] MEDS: METOPROLOL TARTRATE 25 MG TAB PO SCH (09:16)
[2019-04-04] MEDS: CLOPIDOGREL BISULFATE 75 MG TAB PO SCH (09:16)
[2019-04-04] MEDS: ASPIRIN 81 MG ECTAB PO SCH (09:17)
[2019-04-04] MEDS: FLUOXETINE HCL 20 MG CAP PO SCH (09:17)
[2019-04-04] MEDS: NICOTINE 21 MG/24 HR TDSY TD SCH (09:18)
[2019-04-04] MEDS: ENOXAPARIN INJ 40 MG/0.4 ML SYR SQ SCH (09:18)
[2019-04-04] MEDS: INSULIN GLARGINE SOLOSTAR 100 UNITS/ML 3 ML PEN SC SCH (09:18)
--- NOTE | 2019-04-04 14:37 | Infectious Disease Progress Nt ---
Date of Service April 04, 2019 Assessment & Plan (1) Cellulitis of left lower leg: Patient with improving left lower extremity cellulitis complicating venous stasis ulcer, cultures growing MRSA and gram-negative. Patient has improved enough that I think she can transition to oral antibiotics. We will treat with combination of Bactrim and levofloxacin to ensure pseudomonal coverage. See no contraindication from ID standpoint to discharge. Would like to follow-up in 1 to 2 weeks at the wound care center. (2) Venous ulcer of left leg: (3) MRSA (methicillin resistant Staphylococcus aureus) infection: Subjective Patient seen in follow-up for left lower extremity cellulitis complicating venous stasis ulcer. Has significantly improved with IV antibiotics. Decrease in erythema, no significant drainage noted. Remains afebrile. Cultures growing MRSA and gram-negative bacilli. Likely either Enterobacter or Pseudomonas isolated previously. No other new complaints. Review of Systems Review of Systems: All systems reviewed & are unremarkable except as noted in HPI & below Physical Exam Constitutional: WD/WN, vitals as above + morbidly obese and comfortable; no acute distress Eyes: PERRL, conjunctivae normal, anicteric sclerae ENMT: external ear and nose normal, oropharynx normal Neck: trachea midline, no thyromegaly neck nontender Respiratory: normal respiratory effort, lungs clear to auscultation normal percussion; does not use accessory muscles Cardiovascular: Rate/Rhythm: regular rate and regular rhythm Heart Sounds: normal S1 and normal S2; no gallop, no murmur and no cardiac rub Vessels: normal peripheral pulses; no JVD Gastrointestinal (Abdomen): normal bowel sounds, soft, nontender, no hepatosplenomegaly Musculoskeletal: no cyanosis or clubbing, extremities motor strength 5/5 Spine: thoracic spine normal to inspection and lumbar spine normal to inspection; no cervical spinal tenderness Skin: no rashes, warm and dry normal turgor, + wound (Superficial ulceration improved, no current drainage.) and + erythema (Decreased erythema of left leg) Neurologic: patellar DTR's 2+ bilat, sensation intact no focal motor deficits Psychiatric: A+Ox3, euthymic affect Orientation: cooperative Lymphatic: no cervical or axillary lymphadenopathy no inguinal lympha denopathy Results & Data Vital Signs (Past 12 Hours) Vital Signs Temp Pulse Resp BP Pulse Ox 04/04/19 07:16 36.5 C 68 18 123/83 92 Laboratory Results BMP 04/04/19 04:35 Sodium 139 Potassium 4.2 Chloride 105 Carbon Dioxide 30 BUN 15 Creatinine 0.83 Glucose 82 Calcium 8.7 Diagnostic Findings Microbiology 04/01/19 13:11 Blood Aerobic Blood Culture - Preliminary No growth in Aerobic bottle after 48 hours. 04/01/19 13:11 Blood Anaerobic Blood Culture - Preliminary No growth in Anaerobic bottle after 48 hours. 04/01/19 13:11 Blood Aerobic Blood Culture - Preliminary No growth in Aerobic bottle after 48 hours. 04/01/19 13:11 Blood Anaerobic Blood Culture - Preliminary No growth in Anaerobic bottle after 48 hours. 04/01/19 17:38 Leg,Left Gram Stain - Final 04/01/19 17:38 Leg,Left Wound Culture - Preliminary Staph aureus MRSA Gram negative bacilli PG Care Time/CCT Total # of Minutes Spent Total Time Spent with Patient: Total time spent is greater than 50% in coordination of care (as documented) at patient's floor/unit and/or counseling patient:
[2019-04-04] MEDS ORDERED: SULFAMETHOXAZOLE/TRIMETHOPRIM DS 800/160MG TAB PO SCH (15:00)
[2019-04-04] MEDS ORDERED: levoFLOXacin 500 MG TAB PO SCH (15:00)
[2019-04-04 15:36] VITALS: BP 124/77; TEMP 98.1; O2SAT 95
[2019-04-04] MEDS: ACETAMINOPHEN 325 MG TAB PO PRN (16:12)
--- NOTE | 2019-04-04 17:02 | Hospitalist Progress Note ---
Date of Service April 04, 2019 Assessment & Plan (1) Cellulitis of left lower leg: Left lower extremity cellulitis In setting of chronic venous stasis, lymphedema Venous Doppler:No DVT within the visualized right or left lower extremity as described above. X ray:Generalized soft tissue edema. No acute bony abnormality. H/O wound cultures positive for MRSA, Enterobacter, Pseudomonas Blood cultures: No growth to date Wound culture: MRSA, gram-negative bacilli Continue daptomycin, cefepime Day #3>>> transitioned to Bactrim and Levaquin Needs to complete 10-day course of p.o. antibiotics Appreciate ID input Continue wound care Continue contact precautions Needs follow-up with wound care center in 1 to 2 weeks upon discharge (2) Venous ulcer of left leg: Management as above Continue Lasix for chronic venous insufficiency (3) DM II (diabetes mellitus, type II), controlled: HbA1c 6.8 Hold home p.o. meds Continue ISS, glargine while hospitalized Monitor blood glucose levels (4) COPD (chronic obstructive pulmonary disease): No signs of exacerbation Ongoing tobacco use Continue home inhalers Counseled to quit smoking (5) Smoking: Counseled to quit smoking NicoDerm patch. (6) PVD (peripheral vascular disease): Continue aspirin, Plavix Hold Lipitor while on daptomycin therapy (7) Depression: Continue fluoxetine (8) Obesity: (9) DVT prophylaxis: Lovenox SQ CODE STATUS Full code Disposition Needs compression dressing on day of discharge Plan to discharge home with home health Subjective Patient is seen and examined at bedside Offers no complaints Denies any chest pain, SOB, dizziness, nausea, abd pain Discussed with ID today Review of Systems 2 Review of Systems: All systems reviewed & are unremarkable except as noted in HPI & below Physical Exam Physical Exam: Physical Exam: Vitals signs as noted above General Appearance:Morbidly Obese, no apparent distress Head: normocephalic, Atraumatic Eyes: normal inspection, EOMI Neck: supple, Trachea midline Respiratory/Chest: Normal breath sounds, CTA Cardiovascular: S1, S2, No murmur Abdomen/GI:Soft, Non tender, Bowel sounds present Extremities/Musculoskelatal:normal inspection, +B/L lymphedema, venous stasis ulceration, Left LE in dressing Neurologic/Psych:AAOX3, grossly no focal neurological deficits Skin: normal color, warm Results & Data Vital Signs (Past 12 Hours) Vital Signs Temp Pulse Resp BP Pulse Ox 04/04/19 15:35 36.7 C 68 16 124/77 95 04/04/19 07:16 36.5 C 68 18 123/83 92 Laboratory Results [facility] 04/04/19 04:35 Sodium 139 Potassium 4.2 Chloride 105 Carbon Dioxide 30 BUN 15 Creatinine 0.83 Glucose 82 Calcium 8.7
[2019-04-04 17:14] VITALS: PULSE 74
--- NOTE | 2019-04-04 17:17 | Discharge Summary ---
Date of Service April 04, 2019 Admission HPI Per Admitting Provider 48-year-old female with chronic venous insufficiency, lymphedema and chronic venous ulceration of the left leg presents with worsening drainage and erythema of the lower left extremity consistent with a cellulitis. She is a history of Pseudomonas and is a diabetic. She is frequently seen in the wound care clinic with her last visit on 03/25. At that time she was placed on ciprofloxacin but has continued to feel worse. She has been experiencing chills and persistent drainage. In total she reports symptoms ongoing for the past 3 weeks. She received a debridement in this area over the summer which helped her for a couple of months. She otherwise denies any fevers, chest pain, shortness of breath or other symptoms at this time. Admission Exam Per Admitting Provider CONSTITUTIONAL: morbidly obese, vitals as above, generally well-appearing EYES: normal conjunctivae, no scleral icterus ENT: MMM RESPIRATORY: clear to auscultation bilaterally, no crackles, rales or wheezes, normal respiratory effort CARDIOVASCULAR: regular rate and rhythm, S1 and 2 heard without murmurs, gallops or rubs, no JVD, no peripheral edema but large legs with woody appearance to the skin. Posterior left leg with superficial wound that is open and wet, softball-sized with surrounding erythema. GASTROINTESTINAL: normal bowel sounds, soft, nontender, nondistended MUSCULOSKELETAL: strength 5/5 throughout, head is normocephalic and atraumatic SKIN: warm and dry, and wound as described above. NEUROLOGIC: CN 2-12 grossly intact, normal cognition, normal speech, no gross focal deficits. PSYCHIATRIC: alert cooperative and oriented to person, place and time. Principal Diagnosis Left lower extremity cellulitis Discharge Data Allergies Allergy/AdvReac Type Severity Reaction Status Date / Time No Known Drug Allergies Allergy Verified 04/01/19 14:30 Consultations 04/01/19 14:17 ED Decision to Admit Stat 04/01/19 16:17 Consult Case Management - Discharge Planning Routine 04/01/19 17:10 Consult Infectious Diseases Routine Ordered Studies 04/01/19 17:23 US venous doppler LE BI Urgent Venous Doppler:No DVT within the visualized right or left lower extremity as described above. Leg X ray:Generalized soft tissue edema. No acute bony abnormality. Hospital Course (1) Cellulitis of left lower leg: Left lower extremity cellulitis In setting of chronic venous stasis, lymphedema Venous Doppler:No DVT within the visualized right or left lower extremity as described above. X ray:Generalized soft tissue edema. No acute bony abnormality. H/O wound cultures positive for MRSA, Enterobacter, Pseudomonas Blood cultures: No growth to date Wound culture: MRSA, gram-negative bacilli Continue daptomycin, cefepime Day #3>>> transitioned to Bactrim and Levaquin Needs to complete 10-day course of p.o. antibiotics Appreciate ID input Continue wound care Continue contact precautions Needs follow-up with wound care center in 1 to 2 weeks upon discharge (2) Venous ulcer of left leg: Management as above Continue Lasix for chronic venous insufficiency (3) DM II (diabetes mellitus, type II), controlled: HbA1c 6.8 Hold home p.o. meds Continue ISS, glargine while hospitalized Monitor blood glucose levels (4) COPD (chronic obstructive pulmonary disease): No signs of exacerbation Ongoing tobacco use Continue home inhalers Counseled to quit smoking (5) Smoking: Counseled to quit smoking NicoDerm patch. (6) PVD (peripheral vascular disease): Continue aspirin, Plavix Hold Lipitor while on daptomycin therapy (7) Depression: Continue fluoxetine (8) Obesity: (9) DVT prophylaxis: Lovenox SQ CODE STATUS Full code Disposition Needs compression dressing on day of discharge Plan to discharge home with home health Total Time Total Time Spent Total Time Spent (In Minutes): 41 minutes Discharge Plan Discharge Items Patient Disposition: Home - Home Health Services Reason For Visit: LLE CELLULITIS Discharge Diagnosis: Left lower extremity cellulitis Activity: Resume your previous activity Exercise/Sports: Gradually increase as tolerated Non-emergency contact: Primary Care Provider and Specialist Call non-emergency contact if: you have any medication questions, your symptoms worsen, your pain is not controlled, your pain is worsening, your pain is unusual for you, your pain is concerning for you, your wound has increased redness, your wound has increased drainage and your wound pain has increased Follow-up/Referrals: Ruel Smyth MD [Primary Care Provider] - Diet: Carb Consistent or DM2 and Heart Healthy Addtl Attending Provider Instructions: Follow-up with Dr. Barnhart on April 07, 2019 at 12:45 PM for routine care Follow-up with your infectious disease Dr. Ralph at wound care center in 1 to 2 weeks Consider following up with lymphedema clinic as advised Complete the antibiotic course--Bactrim and Levaquin for 10 days as recommended by your infectious disease physician Continue wound care as advised Seek immediate medical attention if your symptoms reoccur or worsen You final wound cultures are pending at the time of discharge. Follow-up with your physician for results and for any adjustment of your medications. Pending Studies at Discharge: Yes Studies:: Wound cultures Stand-Alone Forms: My [facility], Smoking Cessation Medications and DC Order Prescriptions: New sulfamethoxazole-trimethoprim 800-160 mg Tablet 1 tab PO Q12 10 Days Qty: 20 RF: 0 levofloxacin 500 mg Tablet 500 mg PO DAILY@1100 10 Days Qty: 10 RF: 0 Continued glipizide 5 mg tablet 5 mg PO BID RF: 0 metoprolol tartrate 25 mg tablet 12.5 mg PO BID RF: 0 clopidogrel 75 mg tablet 75 mg PO QAM RF: 0 atorvastatin 40 mg tablet 40 mg PO QAM RF: 0 aspirin 81 mg tablet,delayed release (DR/EC) 81 mg PO QAM RF: 0 furosemide 40 mg tablet 40 mg PO QAM RF: 0 fluoxetine 40 mg capsule 40 mg PO QAM RF: 0 Dulera 200-5 mcg/actuation Hfa Aerosol Inhaler 2 puff INHALATION Q12H PRN (Reason: Shortness Of Breath Or Wheezing) RF: 0 acetaminophen [Tylenol Extra Strength] 500 mg Tablet 500 mg PO Q6H PRN (Reason: Pain) RF: 0 Discharge Orders: Discharge Order (Routine); Ordered 04/04/19 Ordered By: Melecio Elder Admission Data Admit Date/Time: 04/02/19 17:06 Attending Provider: Melecio Elder Admit Provider: Arelis Rodriguez Primary Care Provider: Ruel Smyth Other Providers: Arelis Rodriguez ; Bud Ralph ; [facility] Other Interventions: Discharge Summary Assessment (RN) Last Done: 04/04/19 17:13
[2019-04-05] MEDS ORDERED: FUROSEMIDE 40 MG TAB PO SCH (09:00)
== END 2019-04-04 18:01 | disposition home health service (06) | DRG 603 ==
LOC: ED 12:11 → 3W 15:06 → INTOOBSV 15:06 → SUATTDRO 15:06 → 3W 16:01

== ENCOUNTER 2021-01-12 16:14 | Observation (INO) ==
[2021-01-12 19:58] LABS: Albumin Level 2.8 gm/dl (3.4-5.0); BUN Creatinine Ratio 7.8 (10-20); Calcium 8.6 mg/dl (8.5-10.1); Creatinine Clr Calc Pharmacy 186.3 ml/min; Est GFR (African American) 123.5 ml/min; Est GFR (Non-African American) 106.6 ml/min; Potassium 3.6 mmol/L (3.5-5.1)
[2021-01-12 20:13] LABS: Hematocrit (blood only) 32.6 % (37-47); Hemoglobin 8.5 g/dL (12.0-16.0); Mean Corpuscular Hemoglobin 18.4 pg (25-34); Mean Corpuscular Hgb Conc 26.1 g/dL (32-36); Mean Corpuscular Volume 70.7 fL (80-100); Mean Platelet Volume 9.2 fL (7.4-10.4); Platelet Count 355 K/uL (130-400); RDW Coefficient of Variation 20.7 % (11.5-14.5); RDW Standard Deviation 52.9 fL (36.4-46.3); Red Blood Count 4.61 M/uL (4.2-5.4); White Blood Count 10.52 K/uL (4.8-10.8)
[2021-01-12 20:14] LABS: Albumin Globulin Ratio 0.6 (0.9-2); Basophils # (auto) 0.01 K/uL (0-0.2); Basophils % (auto) 0.1 %; Bilirubin,Total 0.5 mg/dl (0.2-1); Eosinophils # (auto) 0.24 K/uL (0-0.5); Eosinophils % (auto) 2.3 %; Globulin 5.1 gm/dl (2.5-4.0); Hypochromasia Present; Immature Granulocytes # (auto) 0.05 K/uL (0.00-0.02); Immature Granulocytes % (auto) 0.5 %; Microcytosis Present; Monocytes # (auto) 0.83 K/uL (0.11-0.59); Monocytes % (auto) 7.9 %; Neutrophils # (auto) 7.29 K/uL (1.4-6.5); Neutrophils % (auto) 69.2 %; Polychromasia 1+; Total Protein 7.9 gm/dl (6.4-8.2); Troponin I 0.074 ng/ml (0-0.045)
--- NOTE | 2021-01-12 20:20 | Emergency Department Note ---
History of Present Illness General Chief complaint: Shortness of Breath/Dyspnea Stated complaint: SOB- DOC REF Time Seen by Provider: 01/12/21 19:01 Source: patient Mode of arrival: ambulatory Limitations: no limitations History of Present Illness Provider complaint: cough, sob Onset (ago): week(s) 1 Maximum Pain Intensity: 2 Exacerbated By: + movement Associated symptoms: + chest pain, + cough, + fever/chills, + loss of appetite and + shortness of breath Treatments prior to arrival: none This is a 50-year-old female presents emergency department with increased cough and shortness of breath. Patient states symptoms began approximately a week ago. Patient states she was at her usual wound care clinic visit today and when they asked her about coughing she admitted it had been worse than usual. She states they promptly recommended she come to the emergency department for additional evaluation and possible Covid testing. Patient denies any known Covid exposure, states she was previously vaccinated. Patient states she is a smoker and does have underlying COPD. She states she does not use any home oxygen or breathing treatments. Patient states the swelling and wounds to her legs are chronic and she sees wound care once a week and is currently taking cefdinir for cellulitis. Patient states she did recently have one episode of vomiting and 2 episodes of diarrhea which she thought were related to a foodborne illness. Patient states she has been more short of breath and has had more frequent and forceful coughing. She states with the coughing she does have some chest tightness and discomfort. She denies any hemoptysis. Patient states she is also uncomfortable laying back or lying flat. Denies any prior history of pneumonia or congestive heart failure. Pt seen during a time of high acuity and national emergency pandemic while wearing PPE. Home Medications Medication Instructions Recorded Confirmed Type aspirin 81 mg tablet,delayed 81 mg PO QAM 07/30/18 01/12/21 History release atorvastatin 40 mg tablet 40 mg PO QAM 07/30/18 01/12/21 History clopidogrel 75 mg tablet 75 mg PO QAM 07/30/18 01/12/21 History metoprolol tartrate 25 mg tablet 12.5 mg PO BID tab 07/30/18 01/12/21 History fluoxetine 40 mg capsule 40 mg PO QAM 12/12/18 01/12/21 History glipizide 5 mg tablet 5 mg PO BID 01/23/19 01/12/21 History cefdinir 300 mg capsule 300 mg PO BID #28 cap 01/03/21 01/12/21 Rx Allergies Allergy/AdvReac Type Severity Reaction Status Date / Time No Known Drug Allergies Allergy Unknown Verified 01/12/21 19:35 Past Med/Surg History Medical History Bladder cancer H/O CAD (coronary artery disease) Cervical cancer COPD (chronic obstructive pulmonary disease) Crohns disease Depression Diabetes mellitus, type 2 NIDDM Dyslipidemia Herpes zoster HTN (hypertension) Morbid obesity with BMI of 50.0-59.9, adult Myocardial Infarction 03/2017 Surgical History History of bunionectomy History of cardiac cath 03/2017 - [facility] - X 1 STENT - FOLLOWS W/ DR. SEGUNDO History of colonoscopy History of esophagogastroduodenoscopy (EGD) History of heart artery stent x 1 History of loop electrical excision procedure (LEEP) History of tooth extraction S/P dilation and curettage S/P tubal ligation Status post endovenous radiofrequency ablation (RFA) of saphenous vein left great saphenous vein Status post surgical removal and fulguration of bladder neoplasm Family History Grandfather (Maternal) Family history of diabetes mellitus Mother Family history of diabetes mellitus Social History Smoking Status: Current every day smoker Tobacco Type: Cigarettes packs per day: 0.5; Years Smoked: 31; Cigarettes Per Day: 20; Second Hand Exposure: No; Hx Alcohol Use: No Hx Substance Use: No Preferred Language: Filipino Communication Ability: Effective Visual Impairment: No Limitations Hearing Ability: Normal Platform Consultant Required: No Beliefs That Will Affect Care: None marital status: Single Current Living Situation: Family Current Living Situation Comment: SON LIVESE WITH PT current occupational status: unemployed How many Children do You have: 3 Feels Safe at Home: Yes Childhood Exposure to Second-Hand Smoke: Yes Review of Systems A total of 10 systems reviewed and were otherwise negative All systems reviewed & are unremarkable except as noted in HPI & below Physical Exam Vital Signs Vital Signs - 24 hr 01/12/21 16:38 01/12/21 19:09 01/12/21 19:16 Temperature 37.5 C Temperature Source Temporal Artery Scan Pulse Rate 102 H 106 H 107 H Pulse Rate [Finger] Pulse Rate from SpO2 Sensor 107 H 107 H Respiratory Rate 20 22 15 Respiratory Effort / Characteristics Short of Breath Respiratory Depth Respiratory Pattern Blood Pressure 152/78 H 212/142 H 166/141 H Blood Pressure [Right Arm] Blood Pressure Mean 102 165 149 Blood Pressure Mean [Right Arm] Pulse Oximetry 99 95 97 Oxygen Delivery Method Room Air Room Air Room Air Sepsis Recent Fever Within 48 Hours No Sepsis New/Unexplained Change in Mental Status N/A Sepsis Action Taken by Nursing No Action Required 01/12/21 19:21 01/12/21 19:23 01/12/21 19:31 Temperature Temperature Source Pulse Rate 108 H 105 H Pulse Rate [Finger] Pulse Rate from SpO2 Sensor 108 H 106 H Respiratory Rate 18 22 Respiratory Effort / Characteristics Respiratory Depth Normal Respiratory Pattern Regular Blood Pressure 174/107 H 149/118 H Blood Pressure [Right Arm] Blood Pressure Mean 129 128 Blood Pressure Mean [Right Arm] Pulse Oximetry 96 96 100 Oxygen Delivery Method Room Air Room Air Room Air Sepsis Recent Fever Within 48 Hours Sepsis New/Unexplained Change in Mental Status Sepsis Action Taken by Nursing 01/12/21 19:45 01/12/21 20:16 01/12/21 20:31 Temperature Temperature Source Pulse Rate 102 H 102 H 100 H Pulse Rate [Finger] Pulse Rate from SpO2 Sensor 102 H 103 H 99 H Respiratory Rate 23 26 H 24 Respiratory Effort / Characteristics Respiratory Depth Respiratory Pattern Blood Pressure 165/115 H 147/77 H 136/107 H Blood Pressure [Right Arm] Blood Pressure Mean 131 100 116 Blood Pressure Mean [Right Arm] Pulse Oximetry 98 94 95 Oxygen Delivery Method Room Air Room Air Room Air Sepsis Recent Fever Within 48 Hours Sepsis New/Unexplained Change in Mental Status Sepsis Action Taken by Nursing 01/12/21 21:01 01/12/21 21:31 01/12/21 22:00 Temperature Temperature Source Pulse Rate 102 H 105 H 109 H Pulse Rate [Finger] Pulse Rate from SpO2 Sensor 106 H 105 H Respiratory Rate 25 H 26 H 18 Respiratory Effort / Characteristics Respiratory Depth Respiratory Pattern Blood Pressure 166/84 H 152/92 H Blood Pressure [Right Arm] Blood Pressure Mean 111 112 Blood Pressure Mean [Right Arm] Pulse Oximetry 95 94 Oxygen Delivery Method Room Air Room Air Sepsis Recent Fever Within 48 Hours Sepsis New/Unexplained Change in Mental Status Sepsis Action Taken by Nursing 01/12/21 22:15 01/12/21 23:35 Temperature Temperature Source Pulse Rate Pulse Rate [Finger] 99 H 105 H Pulse Rate from SpO2 Sensor Respiratory Rate 20 30 H Respiratory Effort / Characteristics Non-Labored Spontaneous Respiratory Depth Respiratory Pattern Blood Pressure Blood Pressure [Right Arm] 141/94 H Blood Pressure Mean Blood Pressure Mean [Right Arm] 109 Pulse Oximetry 98 90 Oxygen Delivery Method Room Air Sepsis Recent Fever Within 48 Hours Sepsis New/Unexplained Change in Mental Status Sepsis Action Taken by Nursing GENERAL: alert, unwell appearing, well nourished, no distress, non-toxic, BMI>62 EYE EXAM: normal conjunctiva, PERRL and EOM's grossly intact OROPHARYNX: no exudate, no erythema, lips, buccal mucosa, and tongue normal and mucous membranes are moist NECK: supple, no nuchal rigidity, no adenopathy, non-tender LUNGS: Decreased to auscultation. Normal chest wall mechanics, scattered expiratory wheeze and fine bibasilar rales HEART: no murmurs, S1 normal and S2 normal ABDOMEN: abdomen soft, non-tender, normo-active bowel sounds, no masses, no rebound or guarding. BACK: Back is symmetrical on inspection and there is no deformity, no midline tenderness, no CVA tenderness. SKIN: no rashes and no bruising UPPER EXTREMITIES: upper extremities are grossly normal. FROM, nml pulses b/l. LOWER EXTREMITIES: 3+ b/l pitting edema with dressing/wraps b/l and drainage noted on left with foul odor. FROM, nml pulses b/l. NEURO EXAM: Normal sensorium, cranial nerves II-XII grossly intact, normal speech, no gross weakness of arms, no gross weakness of legs. Gross sensation intact. Course Administered Medications Acetaminophen (Acetaminophen 325 Mg Tab) 650 mg PO Q4H PRN PRN Reason: Pain or Fever Stop: 02/12/21 00:35 Last Admin: 01/14/21 21:01 Dose: 650 mg Documented by: [id number] Admin: 01/14/21 17:02 Dose: 650 mg Documented by: [id number] Admin: 01/14/21 12:18 Dose: 650 mg Documented by: [id number] Admin: 01/14/21 07:33 Dose: 650 mg Documented by: [id number] Admin: 01/13/21 14:28 Dose: 650 mg Documented by: [id number] Aspirin (Aspirin 81 Mg Ectab) 81 mg PO [facility] Stop: 02/12/21 08:59 Last Admin: 01/14/21 07:34 Dose: 81 mg Documented by: [id number] Admin: 01/13/21 08:10 Dose: 81 mg Documented by: [id number] Atorvastatin Calcium (Atorvastatin 40 Mg Tab) 40 mg PO [facility] Stop: 02/12/21 08:59 Last Admin: 01/14/21 07:33 Dose: 40 mg Documented by: [id number] Admin: 01/13/21 08:10 Dose: 40 mg Documented by: [id number] Clopidogrel Bisulfate (Clopidogrel Bisulfate 75 Mg Tab) 75 mg PO [facility] Stop: 02/12/21 08:59 Last Admin: 01/14/21 07:35 Dose: 75 mg Documented by: [id number] Admin: 01/13/21 08:09 Dose: 75 mg Documented by: [id number] Doxycycline Hyclate (Doxycycline Hyclate 100 Mg Cap) 100 mg PO BID [facility] Stop: 01/20/21 08:59 Last Admin: 01/14/21 20:56 Dose: 100 mg Documented by: [id number] Admin: 01/14/21 07:34 Dose: 100 mg Documented by: [id number] Admin: 01/13/21 19:44 Dose: 100 mg Documented by: [id number] Admin: 01/13/21 08:09 Dose: 100 mg Documented by: [id number] Fluoxetine HCl (Fluoxetine Hcl 20 Mg Cap) 40 mg PO [facility] Stop: 02/12/21 08:59 Last Admin: 01/14/21 07:34 Dose: 40 mg Documented by: [id number] Admin: 01/13/21 08:09 Dose: 40 mg Documented by: [id number] Furosemide (Furosemide 20 Mg Tab) 60 mg PO DAILY [facility] Stop: 02/12/21 08:59 Last Admin: 01/14/21 07:33 Dose: 60 mg Documented by: [id number] Admin: 01/13/21 08:10 Dose: 60 mg Documented by: [id number] Cefepime HCl 2,000 mg/ Syringe 20 mls @ 5 mls/min IV Q8H [facility]; Protocol Stop: 01/20/21 07:59 Last Admin: 01/14/21 23:55 Dose: 5 mls/min Documented by: [id number] Admin: 01/14/21 17:03 Dose: 5 mls/min Documented by: [id number] Admin: 01/14/21 07:34 Dose: 5 mls/min Documented by: [id number] Admin: 01/13/21 23:56 Dose: 5 mls/min Documented by: [id number] Admin: 01/13/21 16:48 Dose: 5 mls/min Documented by: [id number] Admin: 01/13/21 08:08 Dose: 5 mls/min Documented by: [id number] Insulin Aspart (Insulin Aspart 100 Units/Ml 3 Ml Pen) 0 units SC ACHS [facility] Stop: 02/12/21 00:35 Last Admin: 01/14/21 20:56 Dose: 7 units Documented by: [id number] Cosigned by: [id number] Admin: 01/14/21 16:59 Dose: 9 units Documented by: [id number] Cosigned by: [id number] Admin: 01/14/21 12:21 Dose: 8 units Documented by: [id number] Cosigned by: [id number] Admin: 01/14/21 07:53 Dose: 5 units Documented by: [id number] Cosigned by: [id number] Admin: 01/13/21 21:37 Dose: 8 units Documented by: [id number] Cosigned by: [id number] Admin: 01/13/21 16:50 Dose: 5 units Documented by: [id number] Cosigned by: [id number] Admin: 01/13/21 11:47 Dose: 7 units Documented by: [id number] Cosigned by: [id number] Admin: 01/13/21 08:04 Dose: 5 units Documented by: [id number] Cosigned by: [id number] Admin: 01/13/21 01:31 Dose: 6 units Documented by: [id number] Cosigned by: [id number] Insulin Glargine (Insulin Glargine Solostar 100 Units/Ml 3 Ml Pen) 10 units SC HS [facility] Stop: 02/12/21 19:59 Last Admin: 01/14/21 20:56 Dose: 10 units Documented by: [id number] Cosigned by: [id number] Admin: 01/13/21 21:36 Dose: 10 units Documented by: [id number] Cosigned by: [id number] Ipratropium [place] (Ipratropium [place] Neb Soln 0.02% 2.5 Ml Vial) 0.5 mg INH Q6R [facility] Stop: 02/12/21 00:59 Last Admin: 01/15/21 07:11 Dose: 0.5 mg Documented by: [id number] Admin: 01/15/21 00:48 Dose: Not Given Documented by: [id number] Admin: 01/14/21 20:22 Dose: 0.5 mg Documented by: [id number] Admin: 01/14/21 12:36 Dose: 0.5 mg Documented by: [id number] Admin: 01/14/21 07:12 Dose: 0.5 mg Documented by: [id number] Admin: 01/14/21 00:15 Dose: Not Given Documented by: [id number] Admin: 01/13/21 19:59 Dose: 0.5 mg Documented by: [id number] Admin: 01/13/21 12:58 Dose: 0.5 mg Documented by: [id number] Admin: 01/13/21 06:58 Dose: 0.5 mg Documented by: [id number] Admin: 01/13/21 02:27 Dose: Not Given Documented by: [id number] Levalbuterol HCl (Levalbuterol 1.25mg/0.5ml Neb) 1.25 mg INH Q6R [facility] Stop: 02/12/21 00:59 Last Admin: 01/15/21 07:11 Dose: 1.25 mg Documented by: [id number] Admin: 01/15/21 00:47 Dose: Not Given Documented by: [id number] Admin: 01/14/21 20:22 Dose: 1.25 mg Documented by: [id number] Admin: 01/14/21 12:36 Dose: 1.25 mg Documented by: [id number] Admin: 01/14/21 07:11 Dose: 1.25 mg Documented by: [id number] Admin: 01/14/21 00:16 Dose: Not Given Documented by: [id number] Admin: 01/13/21 19:59 Dose: 1.25 mg Documented by: [id number] Admin: 01/13/21 12:58 Dose: 1.25 mg Documented by: [id number] Admin: 01/13/21 06:58 Dose: 1.25 mg Documented by: [id number] Admin: 01/13/21 02:28 Dose: Not Given Documented by: [id number] Metoprolol Tartrate (Metoprolol Tartrate 25 Mg Tab) 25 mg PO BID [facility] Stop: 02/12/21 08:59 Last Admin: 01/14/21 20:57 Dose: 25 mg Documented by: [id number] Admin: 01/14/21 07:35 Dose: 25 mg Documented by: [id number] Admin: 01/13/21 19:44 Dose: 25 mg Documented by: [id number] Admin: 01/13/21 08:11 Dose: 25 mg Documented by: [id number] Miscellaneous (Remove Nicoderm Patch) 1 ea N/A [id number]@[id number] [facility] Stop: 02/12/21 08:58 Last Admin: 01/14/21 07:34 Dose: 1 ea Documented by: [id number] Admin: 01/13/21 08:11 Dose: 1 ea Documented by: [id number] Nicotine (Nicotine 14 Mg/24 Hr Patch) 14 mg TD QAM [facility] Stop: 02/12/21 00:35 Last Admin: 01/14/21 07:34 Dose: 14 mg Documented by: [id number] Admin: 01/13/21 08:11 Dose: 14 mg Documented by: [id number] Admin: 01/13/21 01:32 Dose: 14 mg Documented by: [id number] Norethindrone (Norethindrone 5 Mg Tab) 5 mg PO QID [facility] Stop: 01/17/21 12:59 Last Admin: 01/14/21 20:58 Dose: 5 mg Documented by: [id number] Admin: 01/14/21 17:05 Dose: 5 mg Documented by: [id number] Admin: 01/14/21 12:18 Dose: 5 mg Documented by: [id number] Admin: 01/14/21 07:33 Dose: 5 mg Documented by: [id number] Admin: 01/13/21 19:44 Dose: 5 mg Documented by: [id number] Admin: 01/13/21 16:50 Dose: 5 mg Documented by: [id number] Admin: 01/13/21 12:54 Dose: 5 mg Documented by: [id number] Potassium Chloride (Potassium Chloride Crtab 20 Meq Tabcr) 20 meq PO BID [facility] Stop: 02/12/21 08:59 Last Admin: 01/14/21 20:58 Dose: 20 meq Documented by: [id number] Admin: 01/14/21 07:34 Dose: 20 meq Documented by: [id number] Admin: 01/13/21 19:45 Dose: 20 meq Documented by: [id number] Admin: 01/13/21 08:12 Dose: 20 meq Documented by: [id number] Prednisone (Prednisone 20 Mg Tab) 40 mg PO DAILY [facility] Stop: 01/17/21 08:59 Last Admin: 01/14/21 07:33 Dose: 40 mg Documented by: [id number] Admin: 01/13/21 08:09 Dose: 40 mg Documented by: [id number] Tramadol HCl (Tramadol Hcl 50 Mg Tablet) 25 - 50 mg PO Q4H PRN PRN Reason: Pain Stop: 02/12/21 00:35 Last Admin: 01/15/21 05:16 Dose: 25 mg Documented by: [id number] Admin: 01/13/21 15:29 Dose: 25 mg Documented by: [id number] Discontinued Medications Albuterol (Albut/Ipratrop 3mg/0.5mg Neb 3 Ml Vial) 3 ml NEB NOW STA Stop: 01/12/21 21:52 Last Admin: 01/12/21 22:14 Dose: 3 ml Documented by: [id number] Aspirin (Aspirin 81 Mg Ectab) 81 mg PO [facility] Stop: 01/12/21 21:19 Last Admin: 01/12/21 21:53 Dose: 81 mg Documented by: [id number] Furosemide (Furosemide 40 Mg/4 Ml Vial) 60 mg IV NOW STA Stop: 01/12/21 21:19 Last Admin: 01/12/21 21:53 Dose: 60 mg Documented by: [id number] Doxycycline Hyclate 100 mg/ (Dextrose) 110 mls @ 50 mls/hr IV NOW STA Stop: 01/13/21 01:20 Last Infusion: 01/13/21 02:15 Dose: 0 mls/hr Documented by: [id number] Admin: 01/12/21 23:31 Dose: 50 mls/hr Documented by: [id number] Cefepime HCl (Maxipime) 2,000 mg in 20 mls @ 5 mls/min IV NOW [facility]; Protocol Stop: 01/12/21 23:12 Last Admin: 01/12/21 23:29 Dose: 5 mls/min Documented by: [id number] Magnesium Sulfate/Dextrose (Magnesium Sulfate / D5w) 1 gm in 100 mls @ 50 mls/hr IV ONE ONE Stop: 01/13/21 02:35 Last Infusion: 01/13/21 04:01 Dose: 0 mls/hr Documented by: [id number] Admin: 01/13/21 01:17 Dose: 50 mls/hr Documented by: [id number] Insulin Glargine (Insulin Glargine Solostar 100 Units/Ml 3 Ml Pen) 5 units SC [facility] Stop: 01/12/21 23:25 Last Admin: 01/12/21 23:32 Dose: 5 units Documented by: [id number] Cosigned by: [id number] Methylprednisolone (Methylprednisolone 40 Mg/Ml Vial) 20 mg IV NOW STA Stop: 01/12/21 23:13 Last Admin: 01/12/21 23:29 Dose: 20 mg Documented by: [id number] Metoprolol Tartrate (Metoprolol Tartrate 25 Mg Tab) 25 mg PO NOW [facility] Stop: 01/12/21 23:17 Last Admin: 01/12/21 23:27 Dose: 25 mg Documented by: [id number] Potassium Chloride (Potassium Chloride Crtab 20 Meq Tabcr) 40 meq PO [facility] Stop: 01/12/21 21:49 Last Admin: 01/12/21 22:09 Dose: 40 meq Documented by: [id number] Medical Decision Making Differential Diagnosis Differential diagnoses includes but is not limited to pneumonia, bronchitis, COPD/Asthma exacerbation, pneumothorax, pulmonary embolism, congestive heart failure, acute coronary syndrome Medical Records Attestation: I reviewed the patient's medical records. Home Medications Current Medication List: was personally reviewed by me Laboratory Data Attestation: I reviewed the patient's lab results. Result diagrams: 01/14/21 16:32 01/14/21 07:14 Lab Results 01/12/21 01/12/21 01/12/21 Range/Units 19:00 19:00 19:00 WBC 10.52 (4.8-10.8) K/uL RBC 4.61 (4.2-5.4) M/uL Hgb 8.5 L (12.0-16.0) g/dL Hct 32.6 L (37-47) % MCV 70.7 L (80-100) fL MCH 18.4 L (25-34) pg MCHC 26.1 L (32-36) g/dL RDW Std Deviation 52.9 H (36.4-46.3) fL RDW Coeff of Juanito 20.7 H (11.5-14.5) % Plt Count 355 (130-400) K/uL MPV 9.2 (7.4-10.4) fL Immature Gran % (Auto) 0.5 % Neut % (Auto) 69.2 % Lymph % (Auto) 20.0 % [place] % (Auto) 7.9 % Eos % (Auto) 2.3 % Baso % (Auto) 0.1 % Reticulocyte % (Auto) (0.5-2.0) % Neut # (Auto) 7.29 H (1.4-6.5) K/uL Lymph # (Auto) 2.10 (1.2-3.4) K/uL [place] # (Auto) 0.83 H (0.11-0.59) K/uL Eos # (Auto) 0.24 (0-0.5) K/uL Baso # (Auto) 0.01 (0-0.2) K/uL Reticulocyte # (0.02-0.10) 10^6/uL Immature Gran # (Auto) 0.05 H (0.00-0.02) K/uL Polychromasia 1+ Hypochromasia Present Microcytosis Present PT (9.0-12.0) Seconds INR (0.9-1.1) APTT (21.0-31.0) Seconds PTT Ratio Sodium 137 (136-145) mmol/L Potassium 3.6 (3.5-5.1) mmol/L Chloride 104 (98-107) mmol/L Carbon Dioxide 29 (21-32) mmol/L Anion Gap 5.0 (3-11) BUN 4 L (7-18) mg/dl Creatinine 0.57 L (0.6-1.2) mg/dl Est Cr Clr Drug Dosing 186.3 ml/min Est GFR ( Amer) 123.5 ml/min Est GFR (Non-Af Amer) 106.6 ml/min BUN/Creatinine Ratio 7.8 L (10-20) Glucose 119 H (70-99) mg/dl Calcium 8.6 (8.5-10.1) mg/dl Magnesium 1.8 (1.8-2.4) mg/dl Iron (35-150) mcg/dl TIBC (250-450) mcg/dl Transferrin (200-360) mg/dl Ferritin (8-388) ng/ml Total Bilirubin 0.5 (0.2-1) mg/dl AST 14 L (15-37) U/L ALT 17 (12-78) U/L Alkaline Phosphatase 129 H (45-117) U/L Troponin I 0.074 H* (0-0.045) ng/ml NT-Pro-B Natriuret Pep 160 (0-900) pg/ml Total Protein 7.9 (6.4-8.2) gm/dl Albumin 2.8 L (3.4-5.0) gm/dl Globulin 5.1 H (2.5-4.0) gm/dl Albumin/Globulin Ratio 0.6 L (0.9-2) Lipase 112 (73-393) U/L Vitamin B12 (193-986) pg/ml Folate (>5.38) ng/ml TSH 3.010 (0.300-4.500) uIu/ml COVID-19 Eval Order Covid19 at [facility] SARS-CoV-2 (PCR) (Negative) Blood Type Antibody Screen Crossmatch 01/12/21 01/12/21 01/12/21 Range/Units 19:00 22:11 22:11 WBC (4.8-10.8) K/uL RBC (4.2-5.4) M/uL Hgb (12.0-16.0) g/dL Hct (37-47) % MCV (80-100) fL MCH (25-34) pg MCHC (32-36) g/dL RDW Std Deviation (36.4-46.3) fL RDW Coeff of Juanito (11.5-14.5) % Plt Count (130-400) K/uL MPV (7.4-10.4) fL Immature Gran % (Auto) % Neut % (Auto) % Lymph % (Auto) % [place] % (Auto) % Eos % (Auto) % Baso % (Auto) % Reticulocyte % (Auto) (0.5-2.0) % Neut # (Auto) (1.4-6.5) K/uL Lymph # (Auto) (1.2-3.4) K/uL [place] # (Auto) (0.11-0.59) K/uL Eos # (Auto) (0-0.5) K/uL Baso # (Auto) (0-0.2) K/uL Reticulocyte # (0.02-0.10) 10^6/uL Immature Gran # (Auto) (0.00-0.02) K/uL Polychromasia Hypochromasia Microcytosis PT 9.8 (9.0-12.0) Seconds INR 1.0 (0.9-1.1) APTT 21.4 (21.0-31.0) Seconds PTT Ratio 0.8 Sodium (136-145) mmol/L Potassium (3.5-5.1) mmol/L Chloride (98-107) mmol/L Carbon Dioxide (21-32) mmol/L Anion Gap (3-11) BUN (7-18) mg/dl Creatinine (0.6-1.2) mg/dl Est Cr Clr Drug Dosing ml/min Est GFR ( Amer) ml/min Est GFR (Non-Af Amer) ml/min BUN/Creatinine Ratio (10-20) Glucose (70-99) mg/dl Calcium (8.5-10.1) mg/dl Magnesium (1.8-2.4) mg/dl Iron (35-150) mcg/dl TIBC (250-450) mcg/dl Transferrin (200-360) mg/dl Ferritin (8-388) ng/ml Total Bilirubin (0.2-1) mg/dl AST (15-37) U/L ALT (12-78) U/L Alkaline Phosphatase (45-117) U/L Troponin I (0-0.045) ng/ml NT-Pro-B Natriuret Pep (0-900) pg/ml Total Protein (6.4-8.2) gm/dl Albumin (3.4-5.0) gm/dl Globulin (2.5-4.0) gm/dl Albumin/Globulin Ratio (0.9-2) Lipase (73-393) U/L Vitamin B12 (193-986) pg/ml Folate (>5.38) ng/ml TSH (0.300-4.500) uIu/ml COVID-19 Eval Order SARS-CoV-2 (PCR) NEGATIVE (Negative) Blood Type A Positive Antibody Screen NEGATIVE Crossmatch See Detail 01/12/21 01/12/21 01/12/21 Range/Units 22:11 22:17 22:32 WBC (4.8-10.8) K/uL RBC (4.2-5.4) M/uL Hgb 8.3 L (12.0-16.0) g/dL Hct 31.5 L (37-47) % MCV (80-100) fL MCH (25-34) pg MCHC (32-36) g/dL RDW Std Deviation (36.4-46.3) fL RDW Coeff of Juanito (11.5-14.5) % Plt Count (130-400) K/uL MPV (7.4-10.4) fL Immature Gran % (Auto) % Neut % (Auto) % Lymph % (Auto) % [place] % (Auto) % Eos % (Auto) % Baso % (Auto) % Reticulocyte % (Auto) 2.1 H (0.5-2.0) % Neut # (Auto) (1.4-6.5) K/uL Lymph # (Auto) (1.2-3.4) K/uL [place] # (Auto) (0.11-0.59) K/uL Eos # (Auto) (0-0.5) K/uL Baso # (Auto) (0-0.2) K/uL Reticulocyte # 0.10 (0.02-0.10) 10^6/uL Immature Gran # (Auto) (0.00-0.02) K/uL Polychromasia Hypochromasia Microcytosis PT (9.0-12.0) Seconds INR (0.9-1.1) APTT (21.0-31.0) Seconds PTT Ratio Sodium (136-145) mmol/L Potassium (3.5-5.1) mmol/L Chloride (98-107) mmol/L Carbon Dioxide (21-32) mmol/L Anion Gap (3-11) BUN (7-18) mg/dl Creatinine (0.6-1.2) mg/dl Est Cr Clr Drug Dosing ml/min Est GFR ( Amer) ml/min Est GFR (Non-Af Amer) ml/min BUN/Creatinine Ratio (10-20) Glucose (70-99) mg/dl Calcium (8.5-10.1) mg/dl Magnesium (1.8-2.4) mg/dl Iron 19 L (35-150) mcg/dl TIBC 395 (250-450) mcg/dl Transferrin 328 (200-360) mg/dl Ferritin 5.2 L (8-388) ng/ml Total Bilirubin (0.2-1) mg/dl AST (15-37) U/L ALT (12-78) U/L Alkaline Phosphatase (45-117) U/L Troponin I 0.084 H* (0-0.045) ng/ml NT-Pro-B Natriuret Pep (0-900) pg/ml Total Protein (6.4-8.2) gm/dl Albumin (3.4-5.0) gm/dl Globulin (2.5-4.0) gm/dl Albumin/Globulin Ratio (0.9-2) Lipase (73-393) U/L Vitamin B12 278 (193-986) pg/ml Folate 11.80 (>5.38) ng/ml TSH (0.300-4.500) uIu/ml COVID-19 Eval Order SARS-CoV-2 (PCR) (Negative) Blood Type Antibody Screen Crossmatch Imaging Data Radiologist's Impression: Chest X-Ray 01/12/21 19:18 SINGLE VIEW CHEST CLINICAL HISTORY: Cough and dyspnea. FINDINGS: An AP, portable, upright chest radiograph is compared to study dated 12/12/2018. The examination is degraded by portable technique and large body andrade bitus. The heart is enlarged. There is pulmonary vascular congestion. Atelectasis is noted at the lung bases. The lungs and pleural spaces are clear. No pneumothorax is seen. The bony thorax is grossly intact. IMPRESSION: Cardiomegaly with pulmonary vascular congestion. ACT 112: Negative or not required by law. Electronically signed by: Kvng Dunlap M.D. 01/12/2021 8:22 PM ECG Data Attestation: I personally reviewed and interpreted this ECG as follows: Indication: + chest pain Rate (beats per minute): 108 Rhythm: + sinus tachycardia ECG Intervals/blocks: + Normal QRS and + Normal QT ECG [place]: + Normal ECG ST segments: + Normal ST segments Additional Comments: Slight downward appearance of ST segments in I, II, aVF, V4-6 This is worse compared to prior ekg from 12/02/2018 MDM Narrative This is a 50-year-old female who presents with multiple comorbidities and concern for persistent cough recently and was referred here by wound care. Patient with a history of ongoing tobacco abuse and COPD as well as prior GA. Patient is currently taking cefdinir for her lower extremity wound infections and chronic lymphedema and does state they are improving. Patient was referred here from wound care today due to complaint of persistent cough. Patient found to have an elevated troponin, evidence of pulmonary vascular congestion on chest x-ray, hypoxia on room air, and likely underlying COPD exacerbation. Patient with difficulty laying flat likely from underlying pulmonary pathology as well as body habitus. Patient's H&H was lower compared to prior level several months ago and it is unclear if this is acute. Patient denied bleeding from any source including black or bloody stools. I suspect this may lead to increased demand ischemia due to her known history of CAD. Covid swab was negative. I discussed all results with patient and due to abnormal labs, patient condition as well as comorbidities, case was discussed with hospitalist for additional evaluation and management. Patient does take aspirin and Plavix daily at baseline, additional aspirin was added. Patient denied any chest pain or discomfort while seated in the emergency room although states her chest feels tight with fits of coughing however this seems more pulmonary in nature. No acute EKG changes noted. An order was placed for continuous cardiac monitoring. The monitor shows a rate of _90_ with _normal sinus_ rhythm. Impression & Plan Dyspnea, COPD (chronic obstructive pulmonary disease), Obesity, Venous stasis ulcers of both lower extremities, CHF (congestive heart failure), Elevated troponin Discharge Plan Visit Data Chief Complaint: Shortness of Breath/Dyspnea Stated Complaint: SOB- DOC REF ED Provider: Latonya Cardenas Discharge Problem: Dyspnea, COPD (chronic obstructive pulmonary disease), Obesity, Venous stasis ulcers of both lower extremities, CHF (congestive heart failure), Elevated troponin Patient Disposition: Admitted As Inpatient Discharge Instructions Interventions: ED Discharge Assessment Last Done: 01/13/21 00:22 Discharge Problem: Dyspnea Qualifiers: Dyspnea type: shortness of breath Qualified Code(s): R06.02 - Shortness of breath COPD (chronic obstructive pulmonary disease) Qualifiers: COPD type: unspecified COPD Qualified Code(s): J44.9 - Chronic obstructive pulmonary disease, unspecified Obesity Qualifiers: Obesity type: unspecified obesity type Obesity classification: unspecified obesity classification Serious obesity comorbidity presence: with serious comorbidity Qualified Code(s): E66.9 - Obesity, unspecified CHF (congestive heart failure) Qualifiers: Heart failure type: unspecified Heart failure chronicity: acute on chronic Qualified Code(s): I50.9 - Heart failure, unspecified
--- NOTE | 2021-01-12 20:24 | XRay Report ---
SINGLE VIEW CHEST CLINICAL HISTORY: Cough and dyspnea. FINDINGS: An AP, portable, upright chest radiograph is compared to study dated 12/12/2018. The examina tion is degraded by portable technique and large body habitus. The heart is enlarged. There is pulmon tatiana vascular congestion. Atelectasis is noted at the lung bases. The lungs and pleural spaces are susan ar. No pneumothorax is seen. The bony thorax is grossly intact. IMPRESSION: Cardiomegaly with pulmonary vascular congestion. ACT 112: Negative or not required by law. Electronically signed by: Kvng Dunlap M.D. 01/12/2021 8:22 PM
[2021-01-12] MEDS ORDERED: ASPIRIN 81 MG ECTAB PO STA (21:18)
[2021-01-12] MEDS ORDERED: FUROSEMIDE 40 MG/4 ML VIAL IV STA (21:18)
[2021-01-12] MEDS ORDERED: POTASSIUM CHLORIDE CRTAB 20 MEQ TABCR PO STA (21:48)
[2021-01-12] MEDS ORDERED: ALBUT/IPRATROP 3MG/0.5MG NEB 3 ML VIAL NEB STA (21:51)
[2021-01-12 22:12] LABS: Magnesium 1.8 mg/dl (1.8-2.4); Thyroid Stimulating Hormone 3.01 uIu/ml (0.300-4.500)
[2021-01-12 22:48] LABS: Partial Thromboplastin Ratio 0.8; Partial Thromboplastin Time 21.4 Seconds (21.0-31.0); Prothrombin Time 9.8 Seconds (9.0-12.0)
[2021-01-12 23:08] LABS: Hematocrit (blood only) 31.5 % (37-47); Hemoglobin 8.3 g/dL (12.0-16.0); Reticulocyte % 2.1 % (0.5-2.0); Reticulocytes # 0.1 10^6/uL (0.02-0.10)
[2021-01-12] MEDS ORDERED: CEFEPIME 2,000 MG/20 ML VIAL IV STA (23:09)
[2021-01-12] MEDS ORDERED: DOXYCYCLINE HYCLATE 100 MG in DEXTROSE 5% 100 ML IV STA (23:09)
--- NOTE | 2021-01-12 23:11 | History & Physical Report ---
Date of Service January 12, 2021 Assessment & Plan (1) COPD exacerbation: Plan: Hypertension, elevated secondary to illness Troponin elevation likely secondary to above hx CAD status post stent, hx PVD as per records hyperlipidemia on statin Rx Infected left leg wound, no sepsis hx chronic LE cellulitis/stasis dermatitis as per records hx MRSA, Pseudomonas on prior CS Failed outpatient treatment Rule out LE DVT, osteomyelitis IBD, in remission DM2 on oral medications, well-controlled as of recent hemoglobin A1c of 6.6 2018 New onset anemia Likely secondary to slow bleed from chronic menorrhagia hx proliferative endometrium with extensive metaplastic changes and breakdown on outpatient biopsy from 2019 ongoing tobacco abuse PCU Nebs, prednisone course for COPD exacerbation CS, Doxycycline, Cefepime for infected left leg wound Plain x-ray left leg rule out osteomyelitis May need MRI to definitely rule out osteomyelitis if plain x-ray negative Wound care provider follow-up evaluation LE venous Dopplers rule out DVT Titrate home BP meds Follow troponin TTE if with progression Anemia work-up, transfuse PRBC if hemoglobin less than 8 and or for symptomatic anemia Pelvic ultrasound, Gynecology follow-up evaluation for chronic menorrhagia Basal insulin, ISS BG goal 1 10-1 40, carb count coverage, update hemoglobin A1c Nicotine patch DVT prophylaxis. SCDs Re: Menorrhagia causing significant anemia Full code Text document was generated using [employer] voice recognition software. It may contain grammatical or spelling errors. Kindly contact undersigned for clarification of any documentation item in question. History of Present Illness Chief Complaint: Worsening cough, shortness of breath Primary Care Provider: Ruel Smyth MD History obtained from patient and records. Medical history significant for CAD status post stent, history of PVD as per records, COPD, hypertension, hyperlipidemia, chronic LE cellulitis/stasis dermatitis as per records, IBD, DM2 on oral medications, chronic menorrhagia, bladder cancer status post surgery, ongoing tobacco abuse. Last confinement March 2017 for CAD status post stent placement. Patient has had LE venous ulcers a few years now. Periodic outpatient follow-up at [facility] wound care center. Debridement done for left lower leg wound with note of increased wound size, copious amount of serosanguineous drainage during last outpatient visit 2 weeks ago. Cefdinir Rx started outpatient. Wound still draining as per patient. 1 week history of cough symptoms productive of clear sputum with worsening shortness of breath. Chest pain with coughing. Patient denies aspiration. Patient denies unusual weight gain/fluid retention. Legs not any more swollen than usual. Patient admits to erratic compliance with home diuretic Rx. No unusual abdominal pain, denies black/bloody stools. Usual menorrhagia for a few years now as per patient. Outpatient endometrial biopsy from 2019 showed proliferative endometrium with extensive metaplastic changes and breakdown. Negative for hyperplasia and carcinoma. Gynecologic procedure for bleeding deferred due to her other medical conditions as per patient. Patient directed to ER by [facility] provider on follow-up appointment today for evaluation of respiratory symptoms. SBP to 110s upon arrival at the ER. Patient given Lasix for possible CHF. Medical History as above 2014 EGD showed gastritis. 2014 colonoscopy showed polyp, diverticulosis. Surgical History : Dental surgery, BTL, urologic procedure, bunionectomy, varicose vein procedure Family History : Heart disease Personal/Social history : 1 pack daily, no EtOH intake, disabled Allergies Allergy/AdvReac Type Severity Reaction Status Date / Time No Known Drug Allergies Allergy Unknown Verified 01/12/21 19:35 Home Medications Medication Instructions Recorded Confirmed Type aspirin 81 mg tablet,delayed 81 mg PO QAM 07/30/18 01/12/21 History release atorvastatin 40 mg tablet 40 mg PO QAM 07/30/18 01/12/21 History clopidogrel 75 mg tablet 75 mg PO QAM 07/30/18 01/12/21 History metoprolol tartrate 25 mg tablet 12.5 mg PO BID tab 07/30/18 01/12/21 History fluoxetine 40 mg capsule 40 mg PO QAM 12/12/18 01/12/21 History glipizide 5 mg tablet 5 mg PO BID 01/23/19 01/12/21 History cefdinir 300 mg capsule 300 mg PO BID #28 cap 01/03/21 01/12/21 Rx Past Med/Surg History Medical History Bladder cancer H/O CAD (coronary artery disease) Cervical cancer COPD (chronic obstructive pulmonary disease) Crohns disease Depression Diabetes mellitus, type 2 NIDDM Dyslipidemia Herpes zoster HTN (hypertension) Morbid obesity with BMI of 50.0-59.9, adult Myocardial Infarction 03/2017 Surgical History History of bunionectomy History of cardiac cath 03/2017 - [facility] - X 1 STENT - FOLLOWS W/ DR. SEGUNDO History of colonoscopy History of esophagogastroduodenoscopy (EGD) History of heart artery stent x 1 History of loop electrical excision procedure (LEEP) History of tooth extraction S/P dilation and curettage S/P tubal ligation Status post endovenous radiofrequency ablation (RFA) of saphenous vein left great saphenous vein Status post surgical removal and fulguration of bladder neoplasm Family History Grandfather (Maternal) Family history of diabetes mellitus Mother Family history of diabetes mellitus Social History Smoking Status: Current every day smoker Tobacco Type: Cigarettes packs per day: 0.5; Years Smoked: 31; Cigarettes Per Day: 20; Second Hand Exposure: No; Do You Dip or Chew Tobacco: No; Hx Alcohol Use: No Hx Substance Use: No Preferred Language: Somali Communication Ability: Effective Visual Impairment: No Limitations Hearing Ability: Normal 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 Assistant Required: No Beliefs That Will Affect Care: None marital status: Single Current Living Situation: Family Current Living Situation Comment: SON LIVESE WITH PT current occupational status: unemployed Other Information That Helps Us Care for You: No Feels Safe at Home: Yes Safety Concerns: Feels Safe At This Time Childhood Exposure to Second-Hand Smoke: Yes Assistive Devices: Denture - Upper and Glasses Review of Systems Review of Systems: As per HPI, all 10 systems reviewed, all other ROS negative Physical Exam Physical Exam: GENERAL: Comfortable, pleasant, morbidly obese, minimal respiratory distress SKIN: Pallor,, warm HEENT: Pale palpebral conjunctivae, no ptosis, dry buccal mucosa NECK : Supple, short neck, no tenderness CHEST : Decreased breath sounds, occasional expiratory wheezes, no tenderness HEART : Tachycardic, no obvious murmurs ABDOMEN: Some distention, nontender EXTREMITIES : Bilateral LE venous stasis with minimal tenderness, ulcerated wound left lower extremity with foul-smelling drainage NEUROLOGIC : Coherent, no facial asymmetry, no other gross focality Results & Data Results & Data ([facility]) Vital Signs (Past 12 Hours) Vital Signs Temp Pulse Pulse Resp BP Pulse Ox 01/12/21 22:15 99 H 20 98 01/12/21 22:00 109 H 18 152/92 H 94 01/12/21 21:31 105 H 26 H 166/84 H 95 01/12/21 21:01 102 H 25 H 01/12/21 20:31 100 H 24 136/107 H 95 01/12/21 20:16 102 H 26 H 147/77 H 94 01/12/21 19:45 102 H 23 165/115 H 98 01/12/21 19:31 105 H 22 149/118 H 100 01/12/21 19:23 96 01/12/21 19:21 108 H 18 174/107 H 96 01/12/21 19:16 107 H 15 166/141 H 97 01/12/21 19:09 106 H 22 212/142 H 95 01/12/21 16:38 37.5 C 102 H 20 152/78 H 99 Laboratory Results Laboratory Results WBC 10.52 K/uL (4.8-10.8) 01/12/21 19:00 RBC 4.61 M/uL (4.2-5.4) 01/12/21 19:00 Hgb 8.3 g/dL (12.0-16.0) L 01/12/21 22:17 Hct 31.5 % (37-47) L 01/12/21 22:17 MCV 70.7 fL (80-100) L 01/12/21 19:00 MCH 18.4 pg (25-34) L 01/12/21 19:00 MCHC 26.1 g/dL (32-36) L 01/12/21 19:00 RDW Std Deviation 52.9 fL (36.4-46.3) H 01/12/21 19:00 RDW Coeff of Juanito 20.7 % (11.5-14.5) H 01/12/21 19:00 Plt Count 355 K/uL (130-400) 01/12/21 19:00 MPV 9.2 fL (7.4-10.4) 01/12/21 19:00 Immature Gran % (Auto) 0.5 % 01/12/21 19:00 Neut % (Auto) 69.2 % 01/12/21 19:00 Lymph % (Auto) 20.0 % 01/12/21 19:00 [place] % (Auto) 7.9 % 01/12/21 19:00 Eos % (Auto) 2.3 % 01/12/21 19:00 Baso % (Auto) 0.1 % 01/12/21 19:00 Reticulocyte % (Auto) 2.1 % (0.5-2.0) H 01/12/21 22:17 Neut # (Auto) 7.29 K/uL (1.4-6.5) H 01/12/21 19:00 Lymph # (Auto) 2.10 K/uL (1.2-3.4) 01/12/21 19:00 [place] # (Auto) 0.83 K/uL (0.11-0.59) H 01/12/21 19:00 Eos # (Auto) 0.24 K/uL (0-0.5) 01/12/21 19:00 Baso # (Auto) 0.01 K/uL (0-0.2) 01/12/21 19:00 Reticulocyte # 0.10 10^6/uL (0.02-0.10) 01/12/21 22:17 Immature Gran # (Auto) 0.05 K/uL (0.00-0.02) H 01/12/21 19:00 Polychromasia 1+ 01/12/21 19:00 Hypochromasia Present 01/12/21 19:00 Microcytosis Present 01/12/21 19:00 PT 9.8 Seconds (9.0-12.0) 01/12/21 22:11 INR 1.0 (0.9-1.1) 01/12/21 22:11 APTT 21.4 Seconds (21.0-31.0) 01/12/21 22:11 PTT Ratio 0.8 01/12/21 22:11 Sodium 137 mmol/L (136-145) 01/12/21 19:00 Potassium 3.6 mmol/L (3.5-5.1) 01/12/21 19:00 Chloride 104 mmol/L (98-107) 01/12/21 19:00 Carbon Dioxide 29 mmol/L (21-32) 01/12/21 19:00 Anion Gap 5.0 (3-11) 01/12/21 19:00 BUN 4 mg/dl (7-18) L 01/12/21 19:00 Creatinine 0.57 mg/dl (0.6-1.2) L 01/12/21 19:00 Est Cr Clr Drug Dosing 186.3 ml/min 01/12/21 19:00 Est GFR ( Amer) 123.5 ml/min 01/12/21 19:00 Est GFR (Non-Af Amer) 106.6 ml/min 01/12/21 19:00 BUN/Creatinine Ratio 7.8 (10-20) L 01/12/21 19:00 Glucose 119 mg/dl (70-99) H 01/12/21 19:00 Calcium 8.6 mg/dl (8.5-10.1) 01/12/21 19:00 Magnesium 1.8 mg/dl (1.8-2.4) 01/12/21 19:00 Total Bilirubin 0.5 mg/dl (0.2-1) 01/12/21 19:00 AST 14 U/L (15-37) L 01/12/21 19:00 ALT 17 U/L (12-78) 01/12/21 19:00 Alkaline Phosphatase 129 U/L (45-117) H 01/12/21 19:00 Troponin I 0.074 ng/ml (0-0.045) H* 01/12/21 19:00 NT-Pro-B Natriuret Pep 160 pg/ml (0-900) 01/12/21 19:00 Total Protein 7.9 gm/dl (6.4-8.2) 01/12/21 19:00 Albumin 2.8 gm/dl (3.4-5.0) L 01/12/21 19:00 Globulin 5.1 gm/dl (2.5-4.0) H 01/12/21 19:00 Albumin/Globulin Ratio 0.6 (0.9-2) L 01/12/21 19:00 Lipase 112 U/L (73-393) 01/12/21 19:00 TSH 3.010 uIu/ml (0.300-4.500) 01/12/21 19:00 COVID-19 Eval Order Covid19 at [facility] 01/12/21 19:00 SARS-CoV-2 (PCR) NEGATIVE (Negative) 01/12/21 19:00 Impressions Chest X-Ray 01/12/21 19:18 SINGLE VIEW CHEST CLINICAL HISTORY: Cough and dyspnea. FINDINGS: An AP, portable, upright chest radiograph is compared to study dated 12/12/2018. The examination is degraded by portable technique and large body habitus. The heart is enlarged. There is pulmonary vascular congestion. Atelectasis is noted at the lung bases. The lungs and pleural spaces are clear. No pneumothorax is seen. The bony thorax is grossly intact. IMPRESSION: Cardiomegaly with pulmonary vascular congestion. ACT 112: Negative or not required by law. Electronically signed by: Kvng Dunlap M.D. 01/12/2021 8:22 PM Diagnostic Findings EKG as per my interpretation Rate 110, sinus tachycardia, normal axis, no ischemia
[2021-01-12] MEDS ORDERED: methylPREDNISolone 20 MG in SYRINGE 0 ML IV STA (23:12)
[2021-01-12] MEDS ORDERED: METOPROLOL TARTRATE 25 MG TAB PO SCH (23:15)
[2021-01-12] MEDS ORDERED: METOPROLOL TARTRATE 25 MG TAB PO STA (23:16)
[2021-01-12] MEDS ORDERED: INSULIN GLARGINE SOLOSTAR 100 UNITS/ML 3 ML PEN SC STA (23:24)
[2021-01-12 23:34] LABS: Ferritin 5.2 ng/ml (8-388); Troponin I 0.084 ng/ml (0-0.045)
[2021-01-12 23:34] LABS: Folate (Folic Acid) 11.8 ng/ml (>5.38)
[2021-01-13] MEDS ORDERED: GLUCOSE 40% GEL 15 GM TUBE PO PRN (00:36)
[2021-01-13] MEDS ORDERED: DEXTROSE 50% 50 ML SYRINGE IV PRN (00:36)
[2021-01-13] MEDS ORDERED: MoRPHine SULFATE 4 MG/ML 1 ML CARP\\VIAL IV PRN (00:36)
[2021-01-13] MEDS ORDERED: CEFEPIME CONSULT ACTIVE PRN (00:36)
[2021-01-13] MEDS ORDERED: MAGNESIUM SULFATE / D5W 1 GM/100 ML BAG IV ONE (00:36)
[2021-01-13] MEDS ORDERED: PROMETHAZINE HCL 12.5 MG in SODIUM CHLORIDE 0.9% 50 ML IV PRN (00:36)
[2021-01-13] MEDS ORDERED: CARBOHYDRATES FOR HYPOGLYCEMIA PO PRN (00:36)
[2021-01-13] MEDS ORDERED: GLUCOSE 10 TABS/TUBE PO PRN (00:36)
[2021-01-13] MEDS ORDERED: GLUCAGON FOR INJ 1 MG VIAL SQ PRN (00:36)
[2021-01-13] MEDS ORDERED: XOPENEX/ATROVENT 1.25mg/0.5MG NEB COMBO NEB SCH (01:00)
[2021-01-13] MEDS: INSULIN ASPART 100 UNITS/ML 3 ML PEN SC SCH ×5 (01:31→21:37)
[2021-01-13] MEDS: NICOTINE 14 MG/24 HR PATCH TD SCH ×2 (01:32→08:11)
[2021-01-13] MEDS: IPRATROPIUM BROMIDE NEB SOLN 0.02% 2.5 ML VIAL INH SCH ×4 (02:27→19:59)
[2021-01-13] MEDS: LEVALBUTEROL 1.25MG/0.5ML NEB INH SCH ×4 (02:28→19:59)
[2021-01-13 06:04] LABS: BUN Creatinine Ratio 9.5 (10-20); Calcium 8.4 mg/dl (8.5-10.1); Creatinine Clr Calc Pharmacy 150.9 ml/min; Est GFR (African American) 115.5 ml/min; Est GFR (Non-African American) 99.6 ml/min
[2021-01-13 06:07] LABS: Hematocrit (blood only) 30.2 % (37-47); Hemoglobin 7.9 g/dL (12.0-16.0); Mean Corpuscular Hemoglobin 18.2 pg (25-34); Mean Corpuscular Hgb Conc 26.2 g/dL (32-36); Mean Corpuscular Volume 69.7 fL (80-100); Mean Platelet Volume 8.8 fL (7.4-10.4); Nucleated RBC # (auto) 0.05 K/uL (0-0); Nucleated RBC % (auto) 0.5 %; Platelet Count 361 K/uL (130-400); RDW Coefficient of Variation 20.5 % (11.5-14.5); Red Blood Count 4.33 M/uL (4.2-5.4); White Blood Count 11.26 K/uL (4.8-10.8)
[2021-01-13 06:19] LABS: Troponin I 0.153 ng/ml (0-0.045)
[2021-01-13 06:26] LABS: Basophils # (auto) 0.01 K/uL (0-0.2); Basophils % (auto) 0.1 %; Hypochromasia Present; Immature Granulocytes # (auto) 0.05 K/uL (0.00-0.02); Immature Granulocytes % (auto) 0.4 %; Lymphocytes # (auto) 0.65 K/uL (1.2-3.4); Lymphocytes % (auto) 5.8 %; Monocytes # (auto) 0.22 K/uL (0.11-0.59); Neutrophils # (auto) 10.33 K/uL (1.4-6.5); Neutrophils % (auto) 91.7 %; Polychromasia 1+
[2021-01-13 06:32] LABS: Potassium 4.3 mmol/L (3.5-5.1)
[2021-01-13 06:51] LABS: Pregnancy Test, Urine Negative (Negative)
[2021-01-13 06:53] LABS: Appearance Urine Clear (Clear); Bacteria Urine Automated Negative (Negative); Bilirubin Urine Negative (Negative); Blood Urine 1+ (Negative); Color Urine Dark Yellow; Epithelial Cell Urine Auto 20-30 /lpf (0-5); Glucose Urine UA Negative (Negative); Ketones Urine Trace (Negative); Leukocyte Esterase Urine 1+ (Negative); Nitrite Urine Negative (Negative); Protein Urine Trace (Negative); Specific Gravity Urine 1.024 (1.000-1.030); Urobilinogen Urine Negative (Negative)
[2021-01-13] MEDS ORDERED: SODIUM CHLORIDE 0.9% 250 ML IV PRN (06:54)
[2021-01-13] MEDS: CEFEPIME 2,000 MG in SYRINGE 0 ML IV SCH ×3 (08:08→23:56)
[2021-01-13] MEDS: FLUoxetine HCL 20 MG CAP PO SCH (08:09)
[2021-01-13] MEDS: predniSONE 20 MG TAB PO SCH (08:09)
[2021-01-13] MEDS: CLOPIDOGREL BISULFATE 75 MG TAB PO SCH (08:09)
[2021-01-13] MEDS: DOXYCYCLINE HYCLATE 100 MG CAP PO SCH ×2 (08:09→19:44)
--- NOTE | 2021-01-13 08:09 | Ultrasound Report ---
PELVIC ULTRASOUND, TRANSABDOMINAL HISTORY: menorrhagia COMPARISON: Abdomen and pelvis CT 10/19/2012. FINDINGS: Transvaginal scanning was unable to be performed due to patient's positioning. Uterus: Not well visualized due to the patient's large body habitus. The uterus appears to be normal in size. Endometrial stripe: 8 mm in thickness. This would be considered normal if the patient is premenopausa l. Right ovary: Obscured by overlying bowel gas. Left ovary: Obscured by overlying bowel gas. Miscellaneous:No pelvic free fluid. IMPRESSION: Suboptimal evaluation of the pelvis due to the patient's positioning and body habitus. The ovaries we re not identified. The endometrial stripe is 8 mm in thickness which would be considered normal in a premenopausal patient. ACT 112: Negative or not required by law. Electronically signed by: Kwan Skinner M.D. 01/13/2021 8:07 AM
[2021-01-13] MEDS: FUROSEMIDE 20 MG TAB PO SCH (08:10)
[2021-01-13] MEDS: ASPIRIN 81 MG ECTAB PO SCH (08:10)
[2021-01-13] MEDS: ATORVASTATIN 40 MG TAB PO SCH (08:10)
[2021-01-13] MEDS: METOPROLOL TARTRATE 25 MG TAB PO SCH ×2 (08:11→19:44)
[2021-01-13] MEDS: POTASSIUM CHLORIDE CRTAB 20 MEQ TABCR PO SCH ×2 (08:12→19:45)
--- NOTE | 2021-01-13 08:17 | OB/GYN Consultation ---
Date of Consultation January 13, 2021 Assessment & Plan (1) Abnormal uterine bleeding (AUB): (2) Severe anemia: Discussed with patient need to stop current bleeding. Would rec that be done with aygestin taper. If ok with primary service, would start aygestin(norethindrone) 5mg po qid x 4d, tid x 3d, bid x 2d and then daily until done, 45tabs total. She is aware the goals of that therapy is to cause a medical curettage, in other words at end of that medication course she should get an organized cleaved period about 2-7d. She will then need to have appt for embx as we need to reevaluate lining for cancer or precancer given the aub and especially in light of her co-morbidities which put her at risk for such. We will organize that through our office with Dr. Galan. She is told about SE on this medication. History of Present Illness Reason for Consultation: menorrhagia Requesting Physician: Dr. Jain Attending Physician: Chelsey Higuera MD History of Present Illness 50yo with cc of being admitted for sob/cough and longstanding history of cellulitis who I am asked to see on consult for abnormal uterine bleeding by her hospitalist team. She notes did see Dr. Galan in our office in 2019 for aub and did have endometrial biopsy at that time and although she and he planned a hysterectomy for her, she was having non healing wounds and was told he would wait until those healed. Since that time in 2019 and 2020 she notes about 6-8 periods per year, some last 8d, but some drag onto 30-45 days long. During that duration the flow varies, heavy to normal menstrual flow. Did not call us in last 2 years with those episodes because she says her leg cellulitis was still not healed so didn't think there was anything we could do. She does mention IUD but didn't think to call to consider that sooner. She says we were consulted due to her current anemia thought to be related to her aub. US done in ER with notation of difficult exam due to habitus, ovaries not seen, uterus seemingly normal. EL 8mm. Patient is not SA. 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 seen as new patient by Dr. Galan in our office in 2019, not SA. OBH: x 3, D&C in 1991 after PPH after her son's All Active Problems (Updated 01/13/21 @ 05:38 by Ace Smyth MD) COPD exacerbation Pseudomonas infection (Acute) Morbid obesity with BMI of 50.0-59.9, adult (Chronic) Venous stasis ulcers of both lower extremities (Acute) Venous ulcer of right leg (Acute) Pseudomonas aeruginosa infection MRSA (methicillin resistant Staphylococcus aureus) infection (Acute) Diabetes mellitus (Acute) DVT prophylaxis Obesity (Chronic) Depression PVD (peripheral vascular disease) (Acute) Smoking COPD (chronic obstructive pulmonary disease) DM II (diabetes mellitus, type II), controlled Cellulitis of left lower leg (Chronic) Venous ulcer of left leg (Acute) Unstable angina History of bladder cancer Hypertension Status post tubal ligation Venous stasis ulcer (Acute) Chronic venous insufficiency (Chronic) Right knee pain Rib pain on left side Allergies Allergy/AdvReac Type Severity Reaction Status Date / Time No Known Drug Allergies Allergy Unknown Verified 01/12/21 19:35 Home Medications Medication Instructions Recorded Confirmed Type aspirin 81 mg tablet,delayed 81 mg PO QAM 07/30/18 01/12/21 History release atorvastatin 40 mg tablet 40 mg PO QAM 07/30/18 01/12/21 History clopidogrel 75 mg tablet 75 mg PO QAM 07/30/18 01/12/21 History metoprolol tartrate 25 mg tablet 12.5 mg PO BID tab 07/30/18 01/12/21 History fluoxetine 40 mg capsule 40 mg PO QAM 12/12/18 01/12/21 History glipizide 5 mg tablet 5 mg PO BID 01/23/19 01/12/21 History cefdinir 300 mg capsule 300 mg PO BID #28 cap 01/03/21 01/12/21 Rx Patient History Medical History Bladder cancer H/O CAD (coronary artery disease) Cervical cancer COPD (chronic obstructive pulmonary disease) Crohns disease Depression Diabetes mellitus, type 2 NIDDM Dyslipidemia Herpes zoster HTN (hypertension) Morbid obesity with BMI of 50.0-59.9, adult Myocardial Infarction 03/2017 Surgical History History of bunionectomy History of cardiac cath 03/2017 - [place] - [facility] - X 1 STENT - FOLLOWS W/ DR. SEGUNDO History of colonoscopy History of esophagogastroduodenoscopy (EGD) History of heart artery stent x 1 History of loop electrical excision procedure (LEEP) History of tooth extraction S/P dilation and curettage S/P tubal ligation Status post endovenous radiofrequency ablation (RFA) of saphenous vein left great saphenous vein Status post surgical removal and fulguration of bladder neoplasm Family History Grandfather (Maternal) Family history of diabetes mellitus Mother Family history of diabetes mellitus Social History Smoking Status: Current every day smoker Tobacco Type: Cigarettes packs per day: 0.5; Years Smoked: 31; Cigarettes Per Day: 20; Second Hand Exposure: No; Do You Dip or Chew Tobacco: No; Hx Alcohol Use: No Hx Substance Use: No Preferred Language: Pashto Communication Ability: Effective Visual Impairment: No Limitations Hearing Ability: Normal Corridor Redevelopment Manager Required: No Beliefs That Will Affect Care: None marital status: Single Current Living Situation: Family Current Living Situation Comment: SON LIVESE WITH PT current occupational status: unemployed Other Information That Helps Us Care for You: No Feels Safe at Home: Yes Safety Concerns: Feels Safe At This Time Childhood Exposure to Second-Hand Smoke: Yes Assistive Devices: Denture - Upper and Glasses Review of Systems Constitutional: as per Subjective / HPI Physical Exam Constitutional: WD/WN, vitals as above Gastrointestinal (Abdomen): Percussion/Palpation: abdomen soft (morbidly obese); abdomen nontender, no guarding and no hepatosplenomegaly Neurologic: grossly normal Psychiatric: A+Ox3, euthymic affect Genitourinary: normal external appearance (bright red blood staining perineum. ) Results & Data ([facility]) Vital Signs (Past 12 Hours) Vital Signs Temp Pulse Pulse Resp BP BP Pulse Ox 01/13/21 06:58 91 H 18 90 01/13/21 06:49 98.2 F 94 H 16 130/77 90 01/13/21 03:43 98.6 F 94 H 19 111/64 90 01/13/21 00:37 98.1 F 91 H 20 146/68 H 95 01/12/21 23:35 105 H 30 H 141/94 H 90 01/12/21 22:15 99 H 20 98 01/12/21 22:00 109 H 18 152/92 H 94 01/12/21 21:31 105 H 26 H 166/84 H 95 01/12/21 21:01 102 H 25 H 01/12/21 20:31 100 H 24 136/107 H 95 01/12/21 20:16 102 H 26 H 147/77 H 94 PG Care Time/CCT Total # of Minutes Spent Total Time Spent with Patient: Total time spent is greater than 50% in coordination of care (as documented) at patient's floor/unit and/or counseling patient: Coding Level of Care Code 67877 Initial Inpt Care Lvl 3 Diagnoses Abnormal uterine bleeding (AUB) N93.9 Severe anemia D64.9
--- NOTE | 2021-01-13 08:32 | Electrocardiogram Report ---
Test Reason : Blood Pressure : / mmHG Vent. Rate : 108 BPM Atrial Rate : 108 BPM P-R Int : 130 ms QRS Dur : 082 ms QT Int : 356 ms P-R-T Axes : 049 024 043 degrees QTc Int : 477 ms Poor data quality, interpretation may be adversely affected Sinus tachycardia Low voltage QRS Abnormal ECG Confirmed by Jose Aiken ([id number]) on 01/13/2021 8:31:42 AM Referred By: REFERRED SELF Confirmed By:Jagdish Aiken
--- NOTE | 2021-01-13 08:56 | Ultrasound Report ---
US venous doppler LE BI CLINICAL HISTORY: leg swelling COMPARISON STUDY: April 01, 2019 FINDINGS: Real-time and color flow Doppler imaging were performed. Flow was seen within the femoral, popliteal and calf veins with no intraluminal thrombus demonstrated. The saphenous vein is patent. Limited exam, patient was not able to lay flat due to shortness of breath. IMPRESSION: No evidence of deep venous thrombosis. ACT 112: Negative or not required by law. The above report was generated using voice recognition software. It may contain grammatical, syntax o r spelling errors. Electronically signed by: Ivy Palencia DO 01/13/2021 8:55 AM
--- NOTE | 2021-01-13 08:56 | XRay Report ---
XR tibia fibula LT 2V CLINICAL HISTORY: leg swelling/wound ro osteomyelitis COMPARISON: April 01, 2019 DISCUSSION: No acute fracture or dislocation seen. Evaluation is limited due to patient body habitus. Possible pe riosteal reaction is seen within mid shaft of the fibula without focal sclerotic or lytic lesions. Prominent overlying soft tissue with edema is seen. IMPRESSION: No definite acute fracture or dislocation. Possible periosteal reaction could be seen in chronic venous stasis of metabolic abnormalities. No de finite focal lesions are seen to suggest osteomyelitis however plain radiography has limited ability to evaluate for early osteomyelitis. Prominent overlying edematous soft tissue. ACT 112: Negative or not required by law. The above report was generated using voice recognition software. It may contain grammatical, syntax o r spelling errors. Electronically signed by: Ivy Palencia DO 01/13/2021 8:54 AM
[2021-01-13] MEDS: NORETHINDRONE 5 MG TAB PO SCH ×3 (12:54→19:44)
--- NOTE | 2021-01-13 13:20 | Communication Note ---
Date of Service: January 13, 2021 Office has left message for pt. App[place] [facility] [place]. Galan on 02/16/21 at 130pm
[2021-01-13] MEDS: ACETAMINOPHEN 325 MG TAB PO PRN (14:28)
[2021-01-13] MEDS: traMADol HCL 50 MG TABLET PO PRN (15:29)
--- NOTE | 2021-01-13 15:45 | Hospitalist Progress Note ---
Date of Service January 13, 2021 Assessment & Plan (1) COPD exacerbation: Plan: Chest x-ray showed cardiomegaly with pulmonary vascular congestion. Started on doxycycline 100mg BID and prednisone 40 mg daily Continue neb treatment, guaifenesin and flutter valvle Saturating well on room air Continue monitor closely Elevated troponin Mostly demand ischemia due to low hemoglobin Troponin on admission 0.074, then peak to 0.153, now trending down to 0.09 Echo showed no LV wall motion abnormality with ejection fraction 60 to 65 % Currently denies any chest pain Continue aspirin, Plavix, statin, and metoprolol Anemia Abnormal uterine bleeding Hemoglobin dropped to 7.9 Status post 1 unit PRBC Repeat hemoglobin 8.6 Continue monitor H&H and transfuse if needed PASSENGER RELATIONS REPRESENTATIVE on board Recommended to start on Aygestin taper to help stopping the bleeding. Taper dose start with aygestin(norethindrone) 5mg po qid x 4d, tid x 3d, bid x 2d and then daily until done, 45tabs total. As per PUBLIC HEALTH SPECIALIST pt is aware the goals of that therapy is to cause a medical curettage, in other words at end of that medication course she should get an organized cleaved period about 2-7d. She will then need to have appt for embx as we need to reevaluate lining for cancer or precancer given the aub and especially in light of her co-morbidities which put her at risk for such. Follow up with Dr. Galan outpatient Infected left leg wound hx chronic LE cellulitis/stasis dermatitis hx MRSA, Pseudomonas on prior Cx Failed outpatient treatment Continue IV Cefepime Doppler of lower extremity showed no DVT LLE xray showed possible periosteal reaction could be seen in chronic venous stasis of metabolic abnormalities. No definite focal lesions are seen to suggest osteomyelitis however plain radiography has limited ability to evaluate for early osteomyelitis. Might consider an MRI of the lower leg to rule out osteomyelitis Wound care consult Tobacco abuse Counseling on smoking cessation Continue nicotine patch DVT prophylaxis. SCDs due to menorrhagia causing significant anemia Full code Admission and Anticipated Discharge Date Admission Date: January 12, 2021 Subjective Patient was seen and examined for follow-up shortness of breath and cough Sitting in chair with no acute distress watching TV Patient said that her breathing improves significantly Denies chest pain, palpitation, dizziness and shortness of breath Physical Exam Physical Exam: General- No acute distress Head- atraumatic Eyes- PERRL, EOMI, ENT- oropharynx clear Neck- supple, no JVD Lungs- +diminished BS Heart- regular rhythm; no murmur Abdomen- normal bowel sounds, soft, nontender Extremities- Bilateral LE venous stasis, ulcerated wound in left lower extremity Neuro- alert, oriented x 3; PERRL, EOMI; no facial palsy; no dysarthria Skin- warm & dry Results & Data Results & Data ([facility]) Vital Signs (Past 12 Hours) Vital Signs Temp Pulse Pulse Resp BP BP Pulse Ox 01/13/21 15:03 36.8 C 84 19 124/75 90 01/13/21 13:26 36.8 C 88 18 111/70 90 01/13/21 12:58 77 18 92 01/13/21 12:42 95 H 01/13/21 12:27 36.7 C 85 18 119/76 91 01/13/21 11:27 37.1 C 83 18 121/70 92 01/13/21 10:57 36.9 C 81 18 112/71 90 01/13/21 10:42 36.9 C 79 16 106/70 92 01/13/21 10:26 37.0 C 83 16 107/67 91 01/13/21 06:58 91 H 18 90 01/13/21 06:49 36.8 C 94 H 16 130/77 90 01/13/21 03:43 37.0 C 94 H 19 111/64 90
[2021-01-13 17:43] LABS: Hematocrit (blood only) 31.8 % (37-47); Hemoglobin 8.6 g/dL (12.0-16.0)
[2021-01-13] MEDS ORDERED: INSULIN GLARGINE SOLOSTAR 100 UNITS/ML 3 ML PEN SC SCH (21:00)
[2021-01-13] MEDS: INSULIN GLARGINE SOLOSTAR 100 UNITS/ML 3 ML PEN SC SCH (21:36)
[2021-01-14] MEDS: IPRATROPIUM BROMIDE NEB SOLN 0.02% 2.5 ML VIAL INH SCH ×4 (00:15→20:22)
[2021-01-14] MEDS: LEVALBUTEROL 1.25MG/0.5ML NEB INH SCH ×4 (00:16→20:22)
[2021-01-14] MEDS: predniSONE 20 MG TAB PO SCH (07:33)
[2021-01-14] MEDS: ACETAMINOPHEN 325 MG TAB PO PRN ×4 (07:33→21:01)
[2021-01-14] MEDS: ATORVASTATIN 40 MG TAB PO SCH (07:33)
[2021-01-14] MEDS: NORETHINDRONE 5 MG TAB PO SCH ×4 (07:33→20:58)
[2021-01-14] MEDS: FUROSEMIDE 20 MG TAB PO SCH (07:33)
[2021-01-14 07:34] LABS: Estimated Average Glucose 151 mg/dl; Hemoglobin A1C 6.9 % (4.5-5.6)
[2021-01-14] MEDS: POTASSIUM CHLORIDE CRTAB 20 MEQ TABCR PO SCH ×2 (07:34→20:58)
[2021-01-14] MEDS: FLUoxetine HCL 20 MG CAP PO SCH (07:34)
[2021-01-14] MEDS: ASPIRIN 81 MG ECTAB PO SCH (07:34)
[2021-01-14] MEDS: DOXYCYCLINE HYCLATE 100 MG CAP PO SCH ×2 (07:34→20:56)
[2021-01-14] MEDS: NICOTINE 14 MG/24 HR PATCH TD SCH (07:34)
[2021-01-14] MEDS: CEFEPIME 2,000 MG in SYRINGE 0 ML IV SCH ×3 (07:34→23:55)
[2021-01-14] MEDS: METOPROLOL TARTRATE 25 MG TAB PO SCH ×2 (07:35→20:57)
[2021-01-14] MEDS: CLOPIDOGREL BISULFATE 75 MG TAB PO SCH (07:35)
[2021-01-14 07:41] LABS: Hematocrit (blood only) 30.5 % (37-47); Hemoglobin 8.1 g/dL (12.0-16.0); Mean Corpuscular Hgb Conc 26.6 g/dL (32-36); Mean Corpuscular Volume 71.4 fL (80-100); Mean Platelet Volume 8.6 fL (7.4-10.4); Nucleated RBC # (auto) 0.06 K/uL (0-0); Nucleated RBC % (auto) 0.5 %; Platelet Count 325 K/uL (130-400); RDW Coefficient of Variation 20.8 % (11.5-14.5); RDW Standard Deviation 53.9 fL (36.4-46.3); Red Blood Count 4.27 M/uL (4.2-5.4)
[2021-01-14 07:52] LABS: BUN Creatinine Ratio 18.9 (10-20); Calcium 8.5 mg/dl (8.5-10.1); Est GFR (African American) 120.2 ml/min; Est GFR (Non-African American) 103.7 ml/min; Potassium 4.2 mmol/L (3.5-5.1)
[2021-01-14] MEDS: INSULIN ASPART 100 UNITS/ML 3 ML PEN SC SCH ×4 (07:53→20:56)
[2021-01-14 16:54] LABS: Hematocrit (blood only) 31.5 % (37-47); Hemoglobin 8.4 g/dL (12.0-16.0)
[2021-01-14] MEDS: INSULIN GLARGINE SOLOSTAR 100 UNITS/ML 3 ML PEN SC SCH (20:56)
--- NOTE | 2021-01-14 22:03 | Hospitalist Progress Note ---
Date of Service January 14, 2021 Assessment & Plan (1) COPD exacerbation: Plan: Chest x-ray showed cardiomegaly with pulmonary vascular congestion. continue doxycycline 100mg BID and prednisone 40 mg daily Continue neb treatment, guaifenesin and flutter valvle Saturating well on room air Respiratory status clinically improved significantly Continue monitor closely Elevated troponin Mostly demand ischemia due to low hemoglobin Troponin on admission 0.074, then peak to 0.153, now trending down to 0.09 Echo showed no LV wall motion abnormality with ejection fraction 60 to 65 % Currently denies any chest pain Continue aspirin, Plavix, statin, and metoprolol Anemia Abnormal uterine bleeding Hemoglobin dropped to 7.9 Status post 1 unit PRBC on 01/13/21 Hemoglobin this morning 8.1, repeat hemoglobin level 8.4 Continue monitor H&H and transfuse if needed VP OF TECHNOLOGY on board Recommended to start on Aygestin taper to help stopping the bleeding. Taper dose start with aygestin(norethindrone) 5mg po qid x 4d, tid x 3d, bid x 2d and then daily until done, 45tabs total. As per CLOTH WASHER pt is aware the goals of that therapy is to cause a medical curettage, in other words at end of that medication course she should get an organized cleaved period about 2-7d. She will then need to have appt for embx as we need to reevaluate lining for cancer or precancer given the aub and especially in light of her co-morbidities which put her at risk for such. Follow up with Dr. Galan outpatient Infected left leg wound hx chronic LE cellulitis/stasis dermatitis hx MRSA, Pseudomonas on prior Cx Failed outpatient treatment Wound culture grew gram-negative bacilli Continue IV Cefepime Doppler of lower extremity showed no DVT LLE xray showed possible periosteal reaction could be seen in chronic venous stasis of metabolic abnormalities. No definite focal lesions are seen to suggest osteomyelitis however plain radiography has limited ability to evaluate for early osteomyelitis. Might consider an MRI of the lower leg to rule out osteomyelitis Continue daily wound care Clinically improved Tobacco abuse Counseling on smoking cessation Continue nicotine patch DVT prophylaxis. SCDs due to menorrhagia causing significant anemia Full code Admission and Anticipated Discharge Date Admission Date: January 12, 2021 Subjective Patient was seen and examined for follow-up shortness of breath and cough Lying in bed with no acute distress watching TV Denies chest pain, palpitation, dizziness and shortness of breath Physical Exam Physical Exam: General- No acute distress Head- atraumatic Eyes- PERRL, EOMI, ENT- oropharynx clear Neck- supple, no JVD Lungs- +diminished BS Heart- regular rhythm; no murmur Abdomen- normal bowel sounds, soft, nontender Extremities- Bilateral LE venous stasis, ulcerated wound in left lower extremity Neuro- alert, oriented x 3; PERRL, EOMI; no facial palsy; no dysarthria Skin- warm & dry Results & Data Results & Data ([facility]) Vital Signs (Past 12 Hours) Vital Signs Temp Pulse Resp BP Pulse Ox 01/14/21 20:24 94 H 18 93 01/14/21 19:36 36.8 C 94 H 20 133/78 92 01/14/21 16:17 36.7 C 82 20 152/71 H 91 01/14/21 12:37 86 16 92 01/14/21 12:11 36.6 C 83 16 132/69 91
[2021-01-15] MEDS: LEVALBUTEROL 1.25MG/0.5ML NEB INH SCH ×2 (00:47→07:11)
[2021-01-15] MEDS: IPRATROPIUM BROMIDE NEB SOLN 0.02% 2.5 ML VIAL INH SCH ×2 (00:48→07:11)
[2021-01-15] MEDS: traMADol HCL 50 MG TABLET PO PRN ×3 (05:16→22:13)
[2021-01-15] MEDS: LIDOCAINE 5% 1 PATCH TD SCH (09:13)
[2021-01-15] MEDS: POTASSIUM CHLORIDE CRTAB 20 MEQ TABCR PO SCH ×2 (09:14→22:15)
[2021-01-15] MEDS: NICOTINE 14 MG/24 HR PATCH TD SCH (09:14)
[2021-01-15] MEDS: METOPROLOL TARTRATE 25 MG TAB PO SCH ×2 (09:15→22:14)
[2021-01-15] MEDS: DOXYCYCLINE HYCLATE 100 MG CAP PO SCH ×2 (09:15→22:16)
[2021-01-15] MEDS: ASPIRIN 81 MG ECTAB PO SCH (09:15)
[2021-01-15] MEDS: CLOPIDOGREL BISULFATE 75 MG TAB PO SCH (09:15)
[2021-01-15] MEDS: FUROSEMIDE 20 MG TAB PO SCH (09:15)
[2021-01-15] MEDS: predniSONE 20 MG TAB PO SCH (09:15)
[2021-01-15] MEDS: ATORVASTATIN 40 MG TAB PO SCH (09:16)
[2021-01-15] MEDS: FLUoxetine HCL 20 MG CAP PO SCH (09:16)
[2021-01-15] MEDS: INSULIN ASPART 100 UNITS/ML 3 ML PEN SC SCH ×4 (09:16→22:08)
[2021-01-15] MEDS: NORETHINDRONE 5 MG TAB PO SCH ×4 (09:18→22:14)
[2021-01-15 09:29] LABS: Hemoglobin 8.3 g/dL (12.0-16.0); Mean Corpuscular Hemoglobin 19.2 pg (25-34); Mean Corpuscular Hgb Conc 26.8 g/dL (32-36); Mean Corpuscular Volume 71.6 fL (80-100); Mean Platelet Volume 8.9 fL (7.4-10.4); Nucleated RBC # (auto) 0.07 K/uL (0-0); Nucleated RBC % (auto) 0.7 %; Platelet Count 403 K/uL (130-400); RDW Coefficient of Variation 21.1 % (11.5-14.5); RDW Standard Deviation 55.2 fL (36.4-46.3); Red Blood Count 4.33 M/uL (4.2-5.4); White Blood Count 10.49 K/uL (4.8-10.8)
[2021-01-15] MEDS: CEFEPIME 2,000 MG in SYRINGE 0 ML IV SCH ×3 (10:27→23:47)
[2021-01-15] MEDS ORDERED: IPRATROPIUM BROMIDE NEB SOLN 0.02% 2.5 ML VIAL INH PRN (11:40)
[2021-01-15] MEDS ORDERED: LEVALBUTEROL 1.25MG/0.5ML NEB INH PRN (11:40)
[2021-01-15] MEDS ORDERED: INSULIN HUMAN REGULAR PER UNIT 6 UNITS in SYRINGE 5.94 ML IV STA (19:11)
--- NOTE | 2021-01-15 19:18 | Hospitalist Progress Note ---
Date of Service January 15, 2021 Assessment & Plan (1) COPD exacerbation: Plan: Chest x-ray showed cardiomegaly with pulmonary vascular congestion. On doxycycline 100mg BID and prednisone 40 mg daily Will taper prednisone to 20mg Continue neb treatment, guaifenesin and flutter valvle Saturating well on room air Respiratory status clinically improved significantly Continue monitor closely Elevated troponin Mostly demand ischemia due to low hemoglobin Troponin on admission 0.074, then peak to 0.153, now trending down to 0.09 Echo showed no LV wall motion abnormality with ejection fraction 60 to 65 % Currently denies any chest pain Continue aspirin, Plavix, statin, and metoprolol Anemia Abnormal uterine bleeding Hemoglobin dropped to 7.9 Status post 1 unit PRBC on 01/13/21 Hemoglobin this morning 8.3 Continue monitor H&H and transfuse if needed MECHANIC SENIOR on board Recommended to start on Aygestin taper to help stopping the bleeding. Taper dose start with aygestin(norethindrone) 5mg po qid x 4d, tid x 3d, bid x 2d and then daily until done, 45tabs total. As per PRODUCT BLENDING SUPERVISOR pt is aware the goals of that therapy is to cause a medical curettage, in other words at end of that medication course she should get an organized cleaved period about 2-7d. She will then need to have appt for embx as we need to reevaluate lining for cancer or precancer given the aub and especially in light of her co-morbidities which put her at risk for such. Follow up with Dr. Galan outpatient Infected left leg wound hx chronic LE cellulitis/stasis dermatitis hx MRSA, Pseudomonas on prior Cx Failed outpatient treatment Wound culture grew gram-negative bacilli Continue IV Cefepime Doppler of lower extremity showed no DVT LLE xray showed possible periosteal reaction could be seen in chronic venous stasis of metabolic abnormalities. No definite focal lesions are seen to suggest osteomyelitis however plain radiography has limited ability to evaluate for early osteomyelitis. Will get an MRI of the lower leg to rule out osteomyelitis Continue daily wound care Clinically improved Tobacco abuse Counseling on smoking cessation Continue nicotine patch DVT prophylaxis. SCDs due to menorrhagia causing significant anemia Full code Admission and Anticipated Discharge Date Admission Date: January 12, 2021 Subjective Patient was seen and examined for follow-up shortness of breath and cough Lying in bed with no acute distress watching TV Pt said that she feels much better She said that her breathing feels good Denies chest pain, palpitation, dizziness and shortness of breath Physical Exam Physical Exam: General- No acute distress Head- atraumatic Eyes- PERRL, EOMI, ENT- oropharynx clear Neck- supple, no JVD Lungs- +diminished BS Heart- regular rhythm; no murmur Abdomen- normal bowel sounds, soft, nontender Extremities- Bilateral LE venous stasis, ulcerated wound in left lower extremity Neuro- alert, oriented x 3; PERRL, EOMI; no facial palsy; no dysarthria Skin- warm & dry Results & Data Results & Data ([facility]) Vital Signs (Past 12 Hours) Vital Signs Temp Pulse Pulse Resp BP Pulse Ox 01/15/21 16:00 83 01/15/21 15:31 36.8 C 84 19 124/77 93 01/15/21 11:30 36.5 C 71 19 111/70 94 01/15/21 08:00 64 01/15/21 07:24 36.4 C L 76 20 126/82 100
[2021-01-15] MEDS: INSULIN GLARGINE SOLOSTAR 100 UNITS/ML 3 ML PEN SC SCH (22:09)
[2021-01-16 05:43] LABS: Hematocrit (blood only) 32.5 % (37-47); Hemoglobin 8.6 g/dL (12.0-16.0); Mean Corpuscular Hemoglobin 18.9 pg (25-34); Mean Corpuscular Hgb Conc 26.5 g/dL (32-36); Mean Corpuscular Volume 71.6 fL (80-100); Mean Platelet Volume 8.7 fL (7.4-10.4); Nucleated RBC # (auto) 0.07 K/uL (0-0); Nucleated RBC % (auto) 0.6 %; Platelet Count 401 K/uL (130-400); RDW Coefficient of Variation 21.6 % (11.5-14.5); RDW Standard Deviation 56.7 fL (36.4-46.3); Red Blood Count 4.54 M/uL (4.2-5.4); White Blood Count 11.18 K/uL (4.8-10.8)
[2021-01-16] MEDS: INSULIN ASPART 100 UNITS/ML 3 ML PEN SC SCH ×4 (07:56→21:29)
[2021-01-16] MEDS: POTASSIUM CHLORIDE CRTAB 20 MEQ TABCR PO SCH ×2 (07:58→21:14)
[2021-01-16] MEDS: DOXYCYCLINE HYCLATE 100 MG CAP PO SCH ×2 (07:58→21:15)
[2021-01-16] MEDS: METOPROLOL TARTRATE 25 MG TAB PO SCH ×2 (07:58→21:15)
[2021-01-16] MEDS: CEFEPIME 2,000 MG in SYRINGE 0 ML IV SCH ×2 (07:59→18:06)
[2021-01-16] MEDS: predniSONE 20 MG TAB PO SCH (08:00)
[2021-01-16] MEDS: NORETHINDRONE 5 MG TAB PO SCH ×4 (08:00→21:15)
[2021-01-16] MEDS: FUROSEMIDE 20 MG TAB PO SCH (08:01)
[2021-01-16] MEDS: ATORVASTATIN 40 MG TAB PO SCH (08:02)
[2021-01-16] MEDS: FLUoxetine HCL 20 MG CAP PO SCH (08:03)
[2021-01-16] MEDS: ASPIRIN 81 MG ECTAB PO SCH (08:03)
[2021-01-16] MEDS: CLOPIDOGREL BISULFATE 75 MG TAB PO SCH (08:04)
[2021-01-16] MEDS: LIDOCAINE 5% 1 PATCH TD SCH (08:04)
[2021-01-16] MEDS: NICOTINE 14 MG/24 HR PATCH TD SCH (08:05)
[2021-01-16] MEDS ORDERED: GADOBUTROL 65ML VIAL IV ONE (12:17)
--- NOTE | 2021-01-16 13:19 | Magnetic Resonance Report ---
MR lower leg LT wo/w con HISTORY: Left lower leg swelling with skin ulceration. r/o osteomyelitis TECHNIQUE: Multiplanar multisequence MRI of the left lower leg was performed both before and after th e intravenous administration of 16.9 cc of Gadavist contrast. COMPARISON STUDY: Left tibia/fibula radiograph 01/12/2021. FINDINGS: No fracture or dislocation within the left lower leg. There are scattered lobular T2 hyperi ntense foci within the medullary cavity of the proximal to mid tibia as well as the mid fibula. These areas demonstrate enhancement. No surrounding marrow edema or cortical destruction to suggest an ost eomyelitis. Therefore, this could represent red marrow conversion or a benign cartilaginous lesion. T his does not have the typical appearance for an abscess within the medullary cavity. There is no jaz osteal edema/reaction identified. There is extensive subcutaneous edema within the left lower leg wit h associated skin thickening and a distal lateral skin ulceration. Deep to the skin ulceration is a m ore focal area of subcutaneous fluid which measures 4.8 x 2.4 x 1.0 cm. This is best seen on axial im age 33 of series 16 and coronal image 24 of series 17. No peripheral enhancement identified within th is focal fluid collection. Therefore, this does not clearly represent an abscess at this time. Mild e maria alejandra within the gastrocnemius muscles without enhancement to suggest a myositis. There is diffuse ski n enhancement. IMPRESSION: 1. Extensive subcutaneous edema and skin thickening within the lower leg with associated enhancement of the skin surface. This may represent a mild with associated subcutaneous edema. 2. A 4.8 x 2.4 x 1.0 cm filling focal area of fluid within the subcutaneous fat deep to the distal la teral skin ulceration. There is no surrounding enhancement at this time to suggest an abscess. 3. There are scattered lobular T2 hyperintense foci within the medullary cavity of the proximal to mi d tibia as well as the mid fibula. These areas demonstrate enhancement. No surrounding marrow edema o r cortical destruction to suggest an osteomyelitis. Therefore, this could represent red marrow conver isaac or a benign cartilaginous lesion. This does not have the typical appearance for an abscess withi n the medullary cavity. ACT 112: Negative or not required by law. Electronically signed by: Kwan Skinner M.D. 01/16/2021 1:18 PM
--- NOTE | 2021-01-16 16:02 | Hospitalist Progress Note ---
Date of Service January 16, 2021 Assessment & Plan (1) COPD exacerbation: Plan: Chest x-ray showed cardiomegaly with pulmonary vascular congestion. On doxycycline 100mg BID and prednisone 40 mg daily Taper prednisone to 20mg, will d/c on discharge Continue neb treatment, guaifenesin and flutter valvle Saturating well on room air Respiratory status clinically improved significantly Continue monitor closely Elevated troponin Mostly demand ischemia due to low hemoglobin Troponin on admission 0.074, then peak to 0.153, now trending down to 0.09 Echo showed no LV wall motion abnormality with ejection fraction 60 to 65 % Currently denies any chest pain Continue aspirin, Plavix, statin, and metoprolol Anemia Abnormal uterine bleeding Hemoglobin dropped to 7.9 Status post 1 unit PRBC on 01/13/21 Hemoglobin this morning 8.7 Continue monitor H&H and transfuse if needed EYE SPECIALIST on board Recommended to start on Aygestin taper to help stopping the bleeding. Taper dose start with aygestin(norethindrone) 5mg po qid x 4d, tid x 3d, bid x 2d and then daily until done, 45tabs total. As per MIDDLE SCHOOL RESOURCE TEACHER pt is aware the goals of that therapy is to cause a medical curettage, in other words at end of that medication course she should get an organized cleaved period about 2-7d. She will then need to have appt for embx as we need to reevaluate lining for cancer or precancer given the aub and especially in light of her co-morbidities which put her at risk for such. Follow up with Dr. Galan outpatient Stable Infected left leg wound hx chronic LE cellulitis/stasis dermatitis hx MRSA, Pseudomonas on prior Cx Failed outpatient treatment Wound culture grew gram-negative bacilli- Pseudomonas aeruginosa (resistance to Cipro) Continue IV Cefepime Doppler of lower extremity showed no DVT LLE xray showed possible periosteal reaction could be seen in chronic venous stasis of metabolic abnormalities. No definite focal lesions are seen to suggest osteomyelitis however plain radiography has limited ability to evaluate for early osteomyelitis. MRI of the lower leg showed subcutaneous edema and skin thickening within the lower leg with associated enhancement of the skin surface. This may represent a mild with associated subcutaneous edema. 2. A 4.8 x 2.4 x 1.0 cm filling focal area of fluid within the subcutaneous fat deep to the distal lateral skin ulceration. There is no surrounding enhancement at this time to suggest an abscess. 3. There are scattered lobular T2 hyperintense foci within the medullary cavity of the proximal to mid tibia as well as the mid fibula. These areas demonstrate enhancement. No surrounding marrow edema or cortical destruction to suggest an osteomyelitis. Therefore, this could represent red marrow conversion or a benign cartilaginous lesion. This does not have the typical appearance for an abscess within the medullary cavity. Continue daily wound care ID consulted to guide with abx choice and duration on discharge If required IV abx therapy on discharge, will place a midline Tobacco abuse Counseling on smoking cessation Continue nicotine patch DVT prophylaxis. SCDs due to menorrhagia causing significant anemia Full code Disposition Plan to discharge home tomorrow Admission and Anticipated Discharge Date Admission Date: January 12, 2021 Subjective Patient was seen and examined for follow-up shortness of breath and cough Lying in bed with no acute distress watching TV Pt said that she feels much better Denies chest pain, palpitation, dizziness and shortness of breath Physical Exam Physical Exam: General- No acute distress Head- atraumatic Eyes- PERRL, EOMI, ENT- oropharynx clear Neck- supple, no JVD Lungs- +diminished BS Heart- regular rhythm; no murmur Abdomen- normal bowel sounds, soft, nontender Extremities- Bilateral LE venous stasis, ulcerated wound in left lower extremity Neuro- alert, oriented x 3; PERRL, EOMI; no facial palsy; no dysarthria Skin- warm & dry Results & Data Results & Data ([facility]) Vital Signs (Past 12 Hours) Vital Signs Temp Pulse Pulse Resp BP Pulse Ox 01/16/21 14:57 36.5 C 78 19 129/78 96 01/16/21 11:59 36.9 C 88 18 124/62 96 01/16/21 09:45 83 01/16/21 08:00 37.0 C 86 20 128/59 L 98
[2021-01-16] MEDS: ACETAMINOPHEN 325 MG TAB PO PRN (21:14)
[2021-01-16] MEDS: INSULIN GLARGINE SOLOSTAR 100 UNITS/ML 3 ML PEN SC SCH (21:27)
[2021-01-17] MEDS: CEFEPIME 2,000 MG in SYRINGE 0 ML IV SCH ×3 (00:19→17:00)
[2021-01-17 08:21] LABS: Hematocrit (blood only) 32.1 % (37-47); Hemoglobin 8.7 g/dL (12.0-16.0); Mean Corpuscular Hemoglobin 19.2 pg (25-34); Mean Corpuscular Hgb Conc 27.1 g/dL (32-36); Mean Platelet Volume 8.9 fL (7.4-10.4); Nucleated RBC # (auto) 0.05 K/uL (0-0); Nucleated RBC % (auto) 0.5 %; Platelet Count 403 K/uL (130-400); RDW Coefficient of Variation 21.5 % (11.5-14.5); RDW Standard Deviation 55.2 fL (36.4-46.3); Red Blood Count 4.52 M/uL (4.2-5.4); White Blood Count 10.25 K/uL (4.8-10.8)
[2021-01-17 08:35] LABS: BUN Creatinine Ratio 29.6 (10-20); Calcium 9.1 mg/dl (8.5-10.1); Creatinine Clr Calc Pharmacy 160.7 ml/min; Est GFR (African American) 118.3 ml/min; Est GFR (Non-African American) 102.1 ml/min; Potassium 4.2 mmol/L (3.5-5.1)
[2021-01-17] MEDS: INSULIN ASPART 100 UNITS/ML 3 ML PEN SC SCH ×4 (09:13→20:17)
[2021-01-17] MEDS: NICOTINE 14 MG/24 HR PATCH TD SCH (09:16)
[2021-01-17] MEDS: DOXYCYCLINE HYCLATE 100 MG CAP PO SCH ×2 (09:17→20:13)
[2021-01-17] MEDS: METOPROLOL TARTRATE 25 MG TAB PO SCH ×2 (09:17→20:14)
[2021-01-17] MEDS: POTASSIUM CHLORIDE CRTAB 20 MEQ TABCR PO SCH ×2 (09:17→20:15)
[2021-01-17] MEDS: predniSONE 20 MG TAB PO SCH (09:17)
[2021-01-17] MEDS: ASPIRIN 81 MG ECTAB PO SCH (09:18)
[2021-01-17] MEDS: CLOPIDOGREL BISULFATE 75 MG TAB PO SCH (09:18)
[2021-01-17] MEDS: NORETHINDRONE 5 MG TAB PO SCH ×3 (09:18→20:14)
[2021-01-17] MEDS: FLUoxetine HCL 20 MG CAP PO SCH (09:18)
[2021-01-17] MEDS: ATORVASTATIN 40 MG TAB PO SCH (09:18)
[2021-01-17] MEDS: FUROSEMIDE 20 MG TAB PO SCH (09:19)
[2021-01-17] MEDS: LIDOCAINE 5% 1 PATCH TD SCH (09:19)
[2021-01-17] MEDS: ACETAMINOPHEN 325 MG TAB PO PRN (17:22)
--- NOTE | 2021-01-17 17:37 | Hospitalist Progress Note ---
Date of Service January 17, 2021 Assessment & Plan (1) COPD exacerbation: Plan: Chest x-ray showed cardiomegaly with pulmonary vascular congestion. Was started on doxycycline 100mg BID and prednisone 40 mg daily Prednisone taper to 20mg, will d/c on discharge Continue neb treatment, guaifenesin and flutter valvle Saturating well on room air Respiratory status clinically improved significantly Elevated troponin Mostly demand ischemia due to low hemoglobin Troponin on admission 0.074, then peak to 0.153, now trending down to 0.09 Echo showed no LV wall motion abnormality with ejection fraction 60 to 65 % Currently denies any chest pain Continue aspirin, Plavix, statin, and metoprolol Anemia Abnormal uterine bleeding Hemoglobin dropped to 7.9 Status post 1 unit PRBC on 01/13/21 Hemoglobin this morning 8.7 Continue monitor H&H and transfuse if needed STONE CARVER on board Recommended to start on Aygestin taper to help stopping the bleeding. Taper dose start with aygestin(norethindrone) 5mg po qid x 4d, tid x 3d, bid x 2d and then daily until done, 45tabs total. As per DIRECTOR PATIENT ACCOUNTING pt is aware the goals of that therapy is to cause a medical curettage, in other words at end of that medication course she should get an organized cleaved period about 2-7d. She will then need to have appt for embx as we need to reevaluate lining for cancer or precancer given the aub and especially in light of her co-morbidities which put her at risk for such. Follow up with Dr. Galan outpatient Stable Infected left leg wound hx chronic LE cellulitis/stasis dermatitis hx MRSA, Pseudomonas on prior Cx Failed outpatient treatment Wound culture grew gram-negative bacilli- Pseudomonas aeruginosa (resistance to Cipro) Continue IV Cefepime Doppler of lower extremity showed no DVT LLE xray showed possible periosteal reaction could be seen in chronic venous sta sis of metabolic abnormalities. No definite focal lesions are seen to suggest osteomyelitis however plain radiography has limited ability to evaluate for early osteomyelitis. MRI of the lower leg showed subcutaneous edema and skin thickening within the lower leg with associated enhancement of the skin surface. This may represent a mild with associated subcutaneous edema. 2. A 4.8 x 2.4 x 1.0 cm filling focal area of fluid within the subcutaneous fat deep to the distal lateral skin ulceration. There is no surrounding enhancement at this time to suggest an abscess. 3. There are scattered lobular T2 hyperintense foci within the medullary cavity of the proximal to mid tibia as well as the mid fibula. These areas demonstrate enhancement. No surrounding marrow edema or cortical destruction to suggest an osteomyelitis. Therefore, this could represent red marrow conversion or a benign cartilaginous lesion. This does not have the typical appearance for an abscess within the medullary cavity. Continue daily wound care ID consulted recommended to complete 7 days course of IV cefepime (last dose on 12/19) Case management unable to arrange for the antibiotic to be given at the [facility] since the frequency is q8h Patient said that she can administer at home since she is done it in the past She would like to go home tomorrow Tobacco abuse Counseling on smoking cessation Continue nicotine patch DVT prophylaxis. SCDs due to menorrhagia causing significant anemia Full code Disposition Plan to discharge home tomorrow Admission and Anticipated Discharge Date Admission Date: January 12, 2021 Subjective Patient was seen and examined for follow-up shortness of breath, cough and vaginal bleeding Sitting in chair with no acute distress watching TV Pt said that she feels much better She is very anxious to go home today Denies chest pain, palpitation, dizziness and shortness of breath Physical Exam Physical Exam: General- No acute distress Head- atraumatic Eyes- PERRL, EOMI, ENT- oropharynx clear Neck- supple, no JVD Lungs- +diminished BS Heart- regular rhythm; no murmur Abdomen- normal bowel sounds, soft, nontender Extremities- Bilateral LE venous stasis, ulcerated wound in left lower extremity Neuro- alert, oriented x 3; PERRL, EOMI; no facial palsy; no dysarthria Skin- warm & dry Results & Data Results & Data ([facility]) Vital Signs (Past 12 Hours) Vital Signs Temp Pulse Pulse Resp BP Pulse Ox 01/17/21 15:34 36.8 C 67 19 121/69 94 01/17/21 15:29 82 01/17/21 12:01 36.7 C 60 19 116/74 95 01/17/21 07:33 62 01/17/21 07:19 36.6 C 65 19 136/74 96
[2021-01-17] MEDS: INSULIN GLARGINE SOLOSTAR 100 UNITS/ML 3 ML PEN SC SCH (20:18)
[2021-01-18] MEDS: CEFEPIME 2,000 MG in SYRINGE 0 ML IV SCH ×4 (00:28→19:21)
[2021-01-18 07:35] LABS: Hematocrit (blood only) 33.3 % (37-47); Hemoglobin 8.9 g/dL (12.0-16.0); Mean Corpuscular Hemoglobin 18.9 pg (25-34); Mean Corpuscular Hgb Conc 26.7 g/dL (32-36); Mean Corpuscular Volume 70.9 fL (80-100); Mean Platelet Volume 9.1 fL (7.4-10.4); Platelet Count 444 K/uL (130-400); RDW Coefficient of Variation 21.5 % (11.5-14.5); RDW Standard Deviation 55.7 fL (36.4-46.3); White Blood Count 9.53 K/uL (4.8-10.8)
[2021-01-18] MEDS: INSULIN ASPART 100 UNITS/ML 3 ML PEN SC SCH ×3 (08:27→17:44)
[2021-01-18] MEDS: CLOPIDOGREL BISULFATE 75 MG TAB PO SCH (08:29)
[2021-01-18] MEDS: FUROSEMIDE 20 MG TAB PO SCH (08:29)
[2021-01-18] MEDS: ATORVASTATIN 40 MG TAB PO SCH (08:29)
[2021-01-18] MEDS: ASPIRIN 81 MG ECTAB PO SCH (08:29)
[2021-01-18] MEDS: FLUoxetine HCL 20 MG CAP PO SCH (08:29)
[2021-01-18] MEDS: NICOTINE 14 MG/24 HR PATCH TD SCH (08:30)
[2021-01-18] MEDS: predniSONE 20 MG TAB PO SCH (08:30)
[2021-01-18] MEDS: POTASSIUM CHLORIDE CRTAB 20 MEQ TABCR PO SCH (08:30)
[2021-01-18] MEDS: METOPROLOL TARTRATE 25 MG TAB PO SCH (08:30)
[2021-01-18] MEDS: LIDOCAINE 5% 1 PATCH TD SCH (08:30)
[2021-01-18] MEDS: DOXYCYCLINE HYCLATE 100 MG CAP PO SCH (08:30)
[2021-01-18] MEDS: NORETHINDRONE 5 MG TAB PO SCH ×2 (08:30→15:02)
[2021-01-18] MEDS: ACETAMINOPHEN 325 MG TAB PO PRN (15:02)
--- NOTE | 2021-01-18 18:08 | Discharge Summary ---
Date of Service January 18, 2021 Admission HPI Per Admitting Provider History obtained from patient and records. Medical history significant for CAD status post stent, history of PVD as per records, COPD, hypertension, hyperlipidemia, chronic LE cellulitis/stasis dermatitis as per records, IBD, DM2 on oral medications, chronic menorrhagia, bladder cancer status post surgery, ongoing tobacco abuse. Last confinement March 2017 for CAD status post stent placement. Patient has had LE venous ulcers a few years now. Periodic outpatient follow-up at [facility] wound care center. Debridement done for left lower leg wound with note of increased wound size, copious amount of serosanguineous drainage during last outpatient visit 2 weeks ago. Cefdinir Rx started outpatient. Wound still draining as per patient. 1 week history of cough symptoms productive of clear sputum with worsening shortness of breath. Chest pain with coughing. Patient denies aspiration. Patient denies unusual weight gain/fluid retention. Legs not any more swollen than usual. Patient admits to erratic compliance with home diuretic Rx. No unusual abdominal pain, denies black/bloody stools. Usual menorrhagia for a few years now as per patient. Outpatient endometrial biopsy from 2019 showed proliferative endometrium with extensive metaplastic changes and breakdown. Negative for hyperplasia and carcinoma. Gynecologic procedure for bleeding deferred due to her other medical conditions as per patient. Patient directed to ER by wound care center provider on follow-up appointment today for evaluation of respiratory symptoms. SBP to 110s upon arrival at the ER. Patient given Lasix for possible CHF. Medical History as above 2014 EGD showed gastritis. 2014 colonoscopy showed polyp, diverticulosis. Surgical History : Dental surgery, BTL, urologic procedure, bunionectomy, varicose vein procedure Family History : Heart disease Personal/Social history : 1 pack daily, no EtOH intake, disabled Admission Exam Per Admitting Provider GENERAL: Comfortable, pleasant, morbidly obese, minimal respiratory distress SKIN: Pallor,, warm HEENT: Pale palpebral conjunctivae, no ptosis, dry buccal mucosa NECK : Supple, short neck, no tenderness CHEST : Decreased breath sounds, occasional expiratory wheezes, no tenderness HEART : Tachycardic, no obvious murmurs ABDOMEN: Some distention, nontender EXTREMITIES : Bilateral LE venous stasis with minimal tenderness, ulcerated wound left lower extremity with foul-smelling drainage NEUROLOGIC : Coherent, no facial asymmetry, no other gross focality Principal Diagnosis COPD exacerbation Elevated troponin Abnormal uterine bleeding Anemia Infected left leg wound Tobacco abuse Discharge Exam General- No acute distress Head- atraumatic Eyes- PERRL, EOMI, ENT- oropharynx clear Neck- supple, no JVD Lungs- +diminished BS Heart- regular rhythm; no murmur Abdomen- normal bowel sounds, soft, nontender Extremities- Bilateral LE venous stasis, ulcerated wound in left lower extremity Neuro- alert, oriented x 3; PERRL, EOMI; no facial palsy; no dysarthria Skin- warm & dry Discharge Data Allergies Allergy/AdvReac Type Severity Reaction Status Date / Time No Known Drug Allergies Allergy Unknown Verified 01/26/21 10:16 Consultations 01/12/21 21:42 ED Decision to Admit Stat 01/12/21 23:24 Consult Gynecology Routine Consult Wound Care Provider Routine 01/14/21 09:55 Consult Infectious Diseases Routine Ordered Studies 01/12/21 23:10 US pelvic complete Routine US venous doppler LE BI Urgent 01/16/21 10:31 MR lower leg LT wo/w con Routine MR lower leg LT wo/w con HISTORY: Left lower leg swelling with skin ulceration. r/o osteomyelitis TECHNIQUE: Multiplanar multisequence MRI of the left lower leg was performed both before and after the intravenous administration of 16.9 cc of Gadavist contrast. COMPARISON STUDY: Left tibia/fibula radiograph 01/12/2021. FINDINGS: No fracture or dislocation within the left lower leg. There are scattered lobular T2 hyperintense foci within the medullary cavity of the proximal to mid tibia as well as the mid fibula. These areas demonstrate enhancement. No surrounding marrow edema or cortical destruction to suggest an osteomyelitis. Therefore, this could represent red marrow conversion or a benign cartilaginous lesion. This does not have the typical appearance for an abscess within the medullary cavity. There is no periosteal edema/reaction identified. There is extensive subcutaneous edema within the left lower leg with associated skin thickening and a distal lateral skin ulceration. Deep to the skin ulceration is a more focal area of subcutaneous fluid which measures 4.8 x 2.4 x 1.0 cm. This is best seen on axial image 35 of series 16 and coronal image 24 of series 17. No peripheral enhancement identified within this focal fluid collection. Therefore, this does not clearly represent an abscess at this time. Mild edema within the gastrocnemius muscles without enhancement to suggest a myositis. There is diffuse skin enhancement. IMPRESSION: 1. Extensive subcutaneous edema and skin thickening within the lower leg with associated enhancement of the skin surface. This may represent a mild with associated subcutaneous edema. 2. A 4.8 x 2.4 x 1.0 cm filling focal area of fluid within the subcutaneous fat deep to the distal lateral skin ulceration. There is no surrounding enhancement at this time to suggest an abscess. 3. There are scattered lobular T2 hyperintense foci within the medullary cavity of the proximal to mid tibia as well as the mid fibula. These areas demonstrate enhancement. No surrounding marrow edema or cortical destruction to suggest an osteomyelitis. Therefore, this could represent red marrow conversion or a benign cartilaginous lesion. This does not have the typical appearance for an abscess within the medullary cavity. ACT 112: Negative or not required by law. Electronically signed by: Kwan Skinner M.D. 01/16/2021 1:18 PM Dictated: 01/16/21 1308Transcribed: 01/16/21 1308 US venous doppler LE BI CLINICAL HISTORY: leg swelling COMPARISON STUDY: April 01, 2019 FINDINGS: Real-time and color flow Doppler imaging were performed. Flow was seen within the femoral, popliteal and calf veins with no intraluminal thrombus demonstrated. The saphenous vein is patent. Limited exam, patient was not able to lay flat due to shortness of breath. IMPRESSION: No evidence of deep venous thrombosis. ACT 112: Negative or not required by law. The above report was generated using voice recognition software. It may contain grammatical, syntax or spelling errors. Electronically signed by: Ivy Palencia DO 01/13/2021 8:55 AM Dictated: 01/13/21 0854Transcribed: 01/13/21 0854 XR tibia fibula LT 2V CLINICAL HISTORY: leg swelling/wound ro osteomyelitis COMPARISON: April 01, 2019 DISCUSSION: No acute fracture or dislocation seen. Evaluation is limited due to patient body habitus. Possible periosteal reaction is seen within mid shaft of the fibula without focal sclerotic or lytic lesions. Prominent overlying soft tissue with edema is seen. IMPRESSION: No definite acute fracture or dislocation. Possible periosteal reaction could be seen in chronic venous stasis of metabolic abnormalities. No definite focal lesions are seen to suggest osteomyelitis however plain radiography has limited ability to evaluate for early osteomyelitis. Prominent overlying edematous soft tissue. ACT 112: Negative or not required by law. The above report was generated using voice recognition software. It may contain grammatical, syntax or spelling errors. Electronically signed by: Ivy Palencia DO 01/13/2021 8:54 AM Dictated: 01/13/2151Transcribed: 01/13/21850 PELVIC ULTRASOUND, TRANSABDOMINAL HISTORY: menorrhagia COMPARISON: Abdomen and pelvis CT 10/19/2012. FINDINGS: Transvaginal scanning was unable to be performed due to patient's positioning. Uterus: Not well visualized due to the patient's large body habitus. The uterus appears to be normal in size. Endometrial stripe: 8 mm in thickness. This would be considered normal if the patient is premenopausal. Right ovary: Obscured by overlying bowel gas. Left ovary: Obscured by overlying bowel gas. Miscellaneous:No pelvic free fluid. IMPRESSION: Suboptimal evaluation of the pelvis due to the patient's positioning and body habitus. The ovaries were not identified. The endometrial stripe is 8 mm in thickness which would be considered normal in a premenopausal patient. ACT 112: Negative or not required by law. Electronically signed by: Kwan Skinner M.D. 01/13/2021 8:07 AM Dictated: 01/13/21 08Transcribed: 01/13/21804 SINGLE VIEW CHEST CLINICAL HISTORY: Cough and dyspnea. FINDINGS: An AP, portable, upright chest radiograph is compared to study dated 12/12/2018. The examination is degraded by portable technique and large body habitus. The heart is enlarged. There is pulmonary vascular congestion. Atelectasis is noted at the lung bases. The lungs and pleural spaces are clear. No pneumothorax is seen. The bony thorax is grossly intact. IMPRESSION: Cardiomegaly with pulmonary vascular congestion. ACT 112: Negative or not required by law. Electronically signed by: Kvng Dunlap M.D. 01/12/2021 8:22 PM Dictated: 01/12/212021Transcribed: 01/12/212021 Hospital Course (1) COPD exacerbation: Chest x-ray showed cardiomegaly with pulmonary vascular congestion. Was started on doxycycline 100mg BID and prednisone 40 mg daily Prednisone taper to 20mg, will d/c on discharge Continue neb treatment, guaifenesin and flutter valvle Saturating well on room air Respiratory status clinically improved significantly Elevated troponin Mostly demand ischemia due to low hemoglobin Troponin on admission 0.074, then peak to 0.153, now trending down to 0.09 Echo showed no LV wall motion abnormality with ejection fraction 60 to 65 % Currently denies any chest pain Continue aspirin, Plavix, statin, and metoprolol Anemia Abnormal uterine bleeding Hemoglobin dropped to 7.9 Status post 1 unit PRBC on 01/13/21 Hemoglobin this morning 8.7 Continue monitor H&H and transfuse if needed 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 Taper dose start with aygestin(norethindrone) 5mg po qid x 4d, tid x 3d, bid x 2d and then daily until done, 45tabs total. As per [employer] pt is aware the goals of that therapy is to cause a medical curettage, in other words at end of that medication course she should get an organized cleaved period about 2-7d. She will then need to have appt for embx as we need to reevaluate lining for cancer or precancer given the aub and especially in light of her co-morbidities which put her at risk for such. Follow up with Dr. Galan outpatient Stable Infected left leg wound hx chronic LE cellulitis/stasis dermatitis hx MRSA, Pseudomonas on prior Cx Failed outpatient treatment Wound culture grew gram-negative bacilli- Pseudomonas aeruginosa (resistance to Cipro) Continue IV Cefepime Doppler of lower extremity showed no DVT LLE xray showed possible periosteal reaction could be seen in chronic venous st asis of metabolic abnormalities. No definite focal lesions are seen to suggest osteomyelitis however plain radiography has limited ability to evaluate for early osteomyelitis. MRI of the lower leg showed subcutaneous edema and skin thickening within the lower leg with associated enhancement of the skin surface. This may represent a mild with associated subcutaneous edema. 2. A 4.8 x 2.4 x 1.0 cm filling focal area of fluid within the subcutaneous fat deep to the distal lateral skin ulceration. There is no surrounding enhancement at this time to suggest an abscess. 3. There are scattered lobular T2 hyperintense foci within the medullary cavity of the proximal to mid tibia as well as the mid fibula. These areas demonstrate enhancement. No surrounding marrow edema or cortical destruction to suggest an osteomyelitis. Therefore, this could represent red marrow conversion or a benign cartilaginous lesion. This does not have the typical appearance for an abscess within the medullary cavity. Continue daily wound care ID consulted recommended to complete 7 days course of IV cefepime (last dose on 12/19) Case management unable to arrange for the antibiotic to be given at the [facility] since the frequency is q8h Patient said that she can administer at home since she is done it in the past She would like to go home tomorrow Tobacco abuse Counseling on smoking cessation Continue nicotine patch DVT prophylaxis. SCDs due to menorrhagia causing significant anemia Full code Disposition Plan to discharge home tomorrow Total Time Total Time Spent Total Time Spent (In Minutes): 35 minutes Discharge Plan Discharge Items Patient Disposition: Home - Home Health Services Reason For Visit: SOB, TROP ELEV, INFECTED LEG WOUND Discharge Diagnosis: COPD exacerbation Elevated troponin Abnormal uterine bleeding Anemia Infected left leg wound Tobacco abuse Activity: Resume your previous activity Non-emergency contact: Primary Care Provider Call non-emergency contact if: you have any medication questions Follow-up/Referrals: Ruel Smyth MD [Primary Care Provider] - (Date & Time 01/25/2021 11:00 AM Provider Ruel Smyth MD Department [facility] ) Diet: Carb Consistent or DM2 Addtl Attending Provider Instructions: Follow up with your primary care provider Dr. Smyth on 01/25/2021 @ 11:00 AM Provider at the [facility] Follow up with [facility] Lisseth RONDON with Dr. Galan on 02/16/21 at 130pm Follow up with the wound care clinic Continue daily wound care Completed the course of the antibiotic with Cefepime on 01/19/21 Check CBC in 1 week to monitor your hemoglobin Counseling on smoking cessation Fall precaution Continue Taper dose with aygestin(norethindrone) 5mg po three times a day for 2 days, then twice a day for 2 days, then daily until done Pending Studies at Discharge: No Stand-Alone Forms: [facility], Smoking Cessation Medications and DC Order Prescriptions: New norethindrone acetate 5 mg Tablet 5 mg PO UD Qty: 25 RF: 0 potassium chloride [Klor-Con M20] 20 mEq Tablet,Er Particles/Crystals 20 meq PO UD Qty: 30 RF: 0 Continued glipizide 5 mg tablet 5 mg PO BID RF: 0 metoprolol tartrate 25 mg tablet 12.5 mg PO BID RF: 0 clopidogrel 75 mg tablet 75 mg PO QAM RF: 0 atorvastatin 40 mg tablet 40 mg PO QAM RF: 0 aspirin 81 mg tablet,delayed release (DR/EC) 81 mg PO QAM RF: 0 fluoxetine 40 mg capsule 40 mg PO QAM RF: 0 furosemide [Lasix] 40 mg Tablet 60 mg PO DAILY PRN (Reason: Edema) RF: 0 Discontinued cefdinir 300 mg capsule 300 mg PO BID Qty: 28 RF: 0 Discharge Orders: Discharge Order (Routine); Ordered 01/18/21 Ordered By: Chelsey Estrada/Other Patient Handouts: A1C, Managing Type 2 Diabetes Admission Data Admit Date/Time: 01/12/21 23:15 Attending Provider: Chelsey Higuera Admit Provider: Ace Smyth Primary Care Provider: Ruel Smyth Other Providers: Ace Smyth ; Delores Cruz ; Pedro Parsons ; Paulo Simmons Other Interventions: Discharge Summary Assessment (RN) Last Done: 01/18/21 18:21
== END 2021-01-18 19:48 | disposition home health service (06) ==
LOC: ED 16:14 → 2S 23:15 → INTOOBSV 23:15 → 2S 01-13 00:22